=== PATIENT | female | born 1955 | race Caucasian/White ===

== ENCOUNTER 2022-03-02 09:54 | Inpatient (IN) | payer MEDICARE, SELFPAY ==
[2022-03-02] VITALS (7 sets, daily range): BP systolic 146–178; BP diastolic 75–87; PULSE 82–95; RESP 14–18; TEMP 36.4–36.7; O2SAT 95–99; BMI 27.4; BMI 28.5
--- NOTE | 2022-03-02 | ECG_ITS ---
Test Reason : palpations/ pressure in the chest Blood Pressure : / mmHG Vent. Rate : 085 BPM Atrial Rate : 000 BPM P-R Int : 000 ms QRS Dur : 086 ms QT Int : 362 ms P-R-T Axes : 000 -02 044 degrees QTc Int : 430 ms Atrial fibrillation Abnormal ECG No previous ECGs available Referred By: Ambrose Martinez Electronically Signed By:KALEN NIELSEN MD
--- NOTE | 2022-03-02 09:47 | ED.CHESTPAIN ---
HPI - Chest Pain General Chief Complaint: Chest Pain Stated Complaint: Afib Arm Numbness Time Seen by Provider: 03/02/22 09:46 Source: patient Mode of arrival: ambulatory Limitations: no limitations History of Present Illness HPI narrative: 66-year-old female who presents emergency department for evaluation of left-sided chest pain and neck pain. Patient states she woke up at 0730 hours with tightness in her left neck and left chest. She states that it was a constant , tightness that was 3/10. The pain lasted approximately 1-1/2 hours and resolved without treatment. The patient did have associated dizziness, nausea, diaphoresis and right hand tightness. She denied shortness of breath or dyspnea on exertion associated with her chest pain. This is the 1st episode of this type of chest pain. Patient states she has a history of paroxysmal atrial fibrillation, she does not take any medications and she is not certain when she goes in and out of atrial fibrillation. She states that occasionally she takes her pulse and knows that it is irregular. MD complaint: chest pain Pertinent past history: other (Paroxysmal atrial fibrillation) Onset (ago): hour(s) (1) Timing of current episode: constant (Resolved after 1-1/2 hours) Prior episodes: No Onset: during rest Pain location: left chest Pain radiation: right arm (Right hand) and neck (Left neck) Severity: mild Pain scale (0-10): 3 Quality: tightness Relieving factors: nothing Exacerbating factors: nothing Associated symptoms: nausea and diaphoresis Treatment prior to arrival: none Related Data Previous Rx's Medication Instructions Recorded doxycycline monohydrate 100 mg 100 mg PO BID 7 days #14 caps 09/09/21 capsule prednisone 10 mg tablet 10 mg PO DAILY 7 days #7 tabs 09/09/21 Allergies Allergy/AdvReac Type Severity Reaction Status Date / Time Penicillins [PENICILLINS] Allergy Unknown UNKNOWN Unverified 09/09/21 11:13 Sulfa (Sulfonamide Allergy Unknown UNKNOWN Unverified 09/09/21 11:13 Antibiotics) [SULFA (SULFONAMIDE ANTIBIOTICS)] Review of Systems Review of Systems: Yes all other systems are reviewed and are negative [facility] Past Medical History [facility] Narrative: Past medical history: Paroxysmal atrial fibrillation. She denies tobacco use. She occasionally drinks alcohol, she last drank too hard [place] drinks 2 days prior. She denies drug use. Social History Social History Advance Directives: No Physical Exam Vital Signs: Vital Signs: Last Vital Signs Temp 98.1 F 03/02/22 14:17 Pulse 92 03/02/22 14:17 Resp 14 03/02/22 14:17 BP 178/80 H 03/02/22 14:19 Pulse Ox 97 03/02/22 14:17 O2 Del Method 03/02/22 14:17 BMI result Body Mass Index 28.5 Const: General: cooperative and no acute distress Orientation/consciousness: oriented to person and oriented to place Limitations: no limitations HEENT: Head: Yes normal to inspection, Yes normocephalic and Yes atraumatic Ears: external ears normal General nose exam: Normal external nose present Face and sinus: Yes normal facial exam Mouth: Normal oral and palatal mucosa present Throat: Yes posterior oropharynx normal Eyes: General: appearance normal, both eyes and all related structures Pupils: Equal, round and reactive pupils present Neck: Neck: Yes normal visual inspection, Yes no lymphadenopathy, Yes trachea midline and Yes supple Chest: Chest palpation & inspection: normal inspection of the chest and normal palpation of entire chest wall Resp: Effort & Inspection: normal respiratory effort and able to speak in complete sentences Auscultation: clear to auscultation bilaterally Cardio: Rate: regular rate Rhythm: abnormal rhythm irregularly irregular Heart sounds: S1 normal heart sound present and S2 normal heart sound present GI: Inspection: Yes normal to inspection Palpation (GI): Soft to palpation, nontender and no guarding Auscultation: normal bowel sounds : General: Yes no CVA tenderness Back/Spine/Pelvis: Back: no CVA tenderness Skin: General skin exam: no rashes or lesions noted Neuro: General: oriented to person and oriented to place Cranial nerves: Yes CN's II-XII intact bilaterally and Yes Equal, round and reactive pupils present Cognition (Neuro): normal cognition Motor exam (neuro): 5/5 motor strength present throughout Extrem: General: Yes normal to inspection Psych: Appearance: grossly normal Speech and movement: Normal speech and movement present Affect: normal affect Attitude: cooperative Thought process: Normal thought process present Thought content: Normal thought content present Course Course Course Narrative: 58-year-old female who presents emergency department for evaluation of left-sided neck and chest tightness with associated nausea, diaphoresis, dizziness and right hand pain. Patient has a history of paroxysmal atrial fibrillation but has not had this type of chest pain in the past. The patient's pain lasted 1-1/2 hours and then resolved without treatment in the emergency department. The patient's laboratory evaluation did reveal an elevated high sensitivity troponin I at 48.8. Twelve EKG revealed atrial fibrillation with no ST segment elevation or depression. I ordered a 3 hour troponin for 12 50 hours and aspirin 324 mg orally. 1359: Patient's repeat troponin was 812 is a greater than 50% increase suggest that she has had myocardial injury, most likely type 2. I will discuss further management of this patient with the covering ui programmer, Dr. Francisco. 1437: I did discuss this patient over tiger text with our covering call a neurologist Dr. Francisco. He recommended anticoagulant the patient with heparin in starting the patient on atorvastatin. He also recommended admitting the patient for further evaluation. I will discuss admission with the covering hospitalist. Medications Administered Generic Name Dose Route Start Last Admin Trade Name Freq PRN Reason Stop Dose Admin Heparin Sodium/Sodium Chloride 25,000 unit in 250 mls @ 0 mls/hr 03/02/22 15:30 03/02/22 15:53 Heparin Sodium,Porcine/1/2ns IVCONT 12 units/kg/hr .Q0M VICTORIA 9.62 mls/hr Administration Protocol Per Protocol Discontinued Medications Generic Name Dose Route Start Last Admin Trade Name Freq PRN Reason Stop Dose Admin Aspirin 324 mg 03/02/22 11:43 03/02/22 12:11 Aspirin 81 Mg Tab.Chew PO 03/02/22 11:44 324 mg ONCE ONE Administration Atorvastatin Calcium 80 mg 03/02/22 14:32 03/02/22 15:43 Atorvastatin Calcium 80 Mg Tablet PO 03/02/22 14:33 80 mg ONCE ONE Administration Heparin Sodium (Porcine) 4,000 unit 03/02/22 15:16 03/02/22 15:40 Heparin Sodium,Porcine 5,000 Unit/Ml Vial IVPUSH 03/02/22 15:17 4,000 unit ONCE ONE Administration Medical Decision Making Medical Decision Making Differential Diagnoses: Differential diagnosis (Angina, myocardial injury-type 1 or type 2, chest wall pain, pulmonary embolism) Differential Diagnosis: The differential diagnosis associated with the patient?s presentation includes: Consideration of admission/observation: Consideration of Admission/Observation (Yes) Escalation of care admission/observation considered: Escalation of care including admission/observation considered Lab Attestation: I reviewed the patient's lab results. Independent interpretation of EKG, rhythm strip, radiology study: Independent interp EKG,rhythm strip, radiology study I performed an independent interpretation of the: EKG My interpretation: EKG at 0940: Is atrial fibrillation with a rate of 85, normal QRS and QTC interval, Q-wave in lead 3, no ST segment elevation, no ST segment depression, no significant T-wave abnormalities, no PVCs. No old EKG for comparison Chronic conditions affecting care (e.g., diabetes, HTN): Chronic conditions affecting care (e.g., diabetes, HTN) (Paroxysmal atrial fibrillation) Discharge Plan Discharge Clinical Impression: Myocardial injury, Elevated troponin Atrial fibrillation Qualifiers: Atrial fibrillation type: unspecified Qualified Code(s): I48.91 - Unspecified atrial fibrillation Patient Disposition: Admitted As Inpatient
[2022-03-02 09:58] LABS: Hemoglobin 13.9 g/dl (12.0-16.0); Mean Corpuscular HGB Conc 32.3 g/dl (31.0-35.0); Mean Corpuscular Hemoglobin 29.1 pg (27.0-33.0); Mean Corpuscular Volume 90.1 fL (80.0-98.0); Platelet Count 197 X10*3/uL (160-400); Red Blood Count 4.77 X10*6/uL (4.20-5.50); Red Cell Distribution Width 14.7 % (11.0-16.0)
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
--- OUTSIDE RECORDS SUMMARY | 2022-03-02 09:59 | XMS_ITS | Continuity of Care Document ---
:1955 Author Organization [facility] Address [address] [place] [id number]- Care Team Providers Name Role Phone Nela Mcqueen DO Primary Care Physician Encounter [facility] [place] Date(s): 10/02/19 - 10/09/19 [id number], [place] [address]- [place] Attending Physician: Rex Tracy MD Admitting Physician: Rex Tracy MD Referring Physician: Nela Mcqueen DO Allergies, Adverse Reactions, Alerts Substance Reaction Severity [...]
--- OUTSIDE RECORDS SUMMARY | 2022-03-02 09:59 | XMS_ITS | Continuity of Care Document ---
:1955 Author Organization [facility] Address [address] [place] [address]- Care Team Providers Name Role Phone Richar TAVARES Nela Primary Care Physician [place] [facility] [place] Date(s): 10/02/19 - 11/01/19 [facility] [address] [place] [address]- [facility] Allergies, Adverse Reactions, Alerts Substance Reaction Severity [...]
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
--- OUTSIDE RECORDS SUMMARY | 2022-03-02 09:59 | XMS_ITS | Continuity of Care Document ---
:1955 Author Organization [facility] Address [address] [place] [address]- Care Team Providers Name Role Phone Richar TAVARES Nela Primary Care Physician [place] [facility] [place] Date(s): 10/03/19 - 11/02/19 [facility] [address] [place] [address]- [facility] Attending Physician: Admtr, Ar8 Allergies, Adverse Reactions, Alerts Substance Reaction Severity [...]
--- OUTSIDE RECORDS SUMMARY | 2022-03-02 09:59 | XMS_ITS | Continuity of Care Document ---
:1955 Author Organization [facility] Address [address] [place] [id number]- Care Team Providers Name Role Phone Nela Mcqueen DO Primary Care Physician [place] [facility] [place]): [place] 11/01/19 [id number] [address]- [place] Attending Physician: Admbecky, Orville8 Admitting Physician: Admtr, Orville8 Referring Physician: Admtr, Ar8 Allergies, Adverse Reactions, Alerts [...]
[2022-03-02 10:06] LABS: WBC ABN SCTR FOR CBC 1
[2022-03-02 10:18] LABS: Anion Gap 13 (12-20); Carbon Dioxide 28 mmol/L (22-29); Chloride 103 mmol/L (96-108); Potassium 4.6 mmol/L (3.3-5.1); Sodium 139 mmol/L (135-145)
[2022-03-02 10:19] LABS: Band Neutrophils Percent 0 % (3-5); Eosinophils Percent Manual 1 % (0-4); Lymphocytes Percent Manual 15 % (20-40); Monocytes Percent Manual 7 % (2-11); Neutrophils Percent Manual 77 % (45-73); Platelet Estimate NORMAL (NORMAL); Platelet Morphology Comment NORMAL; RBC Morphology NORMAL
[2022-03-02 10:20] LABS: Eosinophils Absolute Manual 0.1 X10*3/uL (0.0-0.4); Lymphocytes Absolute Manual 1.5 X10*3/uL (1.2-4.9); Monocytes Absolute Manual 0.7 X10*3/uL (0.1-1.2); Neutrophils Absolute Manual 7.6 X10*3/uL (2.0-8.3); White Blood Count 9.9 X10*3/uL (4.8-10.8)
[2022-03-02 10:28] LABS: Troponin-I High Sensitivity 48.8 ng/L (<3.5-17.0)
--- NOTE | 2022-03-02 11:25 | PC.NURSE ---
Pt states having history of afib and not taking medications stating I'm no idiot, there's no correlations between strokes and afib .
--- NOTE | 2022-03-02 11:40 | PC.NURSE ---
Provider at bedside
[2022-03-02] MEDS: Aspirin 81 MG TAB.CHEW 324 MG PO (12:11)
[2022-03-02 12:46] LABS: Alanine Aminotransferase 16 U/L (0-31); Albumin Level 4.2 g/dL (3.5-5.0); Alkaline Phosphatase 80 U/L (39-117); Aspartate Amino Transferase 21 U/L (5-31); Bilirubin Direct 0.2 mg/dL (0.0-0.5); Bilirubin Total 0.6 mg/dL (0.0-1.0); Blood Urea Nitrogen 20 mg/dL (9-16); Calcium 9.4 mg/dL (8.4-10.2); Creatinine Clr Calc Pharmacy 63.4; Estimated Glomerular Filt Rate > 60; Glucose Random 110 mg/dL (60-115); Total Protein 7.1 g/dL (6.5-8.0)
[2022-03-02 13:06] LABS: Partial Thromboplastin Time 29.1 SEC (26.0-36.4)
[2022-03-02 13:27] LABS: Troponin-I High Sensitivity 812.9 ng/L (<3.5-17.0)
[2022-03-02] MEDS: Heparin Sodium,Porcine 5,000 UNIT/ML VIAL 4000 UNIT IVPUSH (15:40)
[2022-03-02] MEDS: Atorvastatin Calcium 80 MG TABLET PO ×2 (15:43→20:48)
[2022-03-02 15:52] LABS: Influenza A PCR NEGATIVE (Negative); Influenza B PCR NEGATIVE (Negative); Resp Syncy Virus RNA Qual PCR NEGATIVE (Negative); SARS COV2 PCR INHOUSE NEGATIVE (Negative)
[2022-03-02] MEDS: Heparin Sodium,Porcine/1/2NS 25,000 UNIT/250 ML IV.SOLN 9.62 UNIT IVCONT (15:53)
--- NOTE | 2022-03-02 15:59 | PC.NURSE ---
Heparin drip started per protocol
[2022-03-02 16:02] LABS: Hematocrit 43.1 % (37.0-47.0); Hemoglobin 14.5 g/dl (12.0-16.0); Mean Corpuscular HGB Conc 33.6 g/dl (31.0-35.0); Mean Corpuscular Hemoglobin 29.8 pg (27.0-33.0); Mean Corpuscular Volume 88.7 fL (80.0-98.0); Mean Platelet Volume 12.7 fL (9.4-12.3); Platelet Count 203 X10*3/uL (160-400); Red Blood Count 4.86 X10*6/uL (4.20-5.50); Red Cell Distribution Width 14.6 % (11.0-16.0); White Blood Count 9.3 X10*3/uL (4.8-10.8)
--- NOTE | 2022-03-02 16:13 | P.CONCA_ITS ---
History of Present Illness History of Present Illness Date of Service: 03/02/22 Requesting physician: Ambrose Martinez Consult reason: other (Acute coronary syndrome) Chief complaint: Afib Arm Numbness Narrative: I was consulted to see Ghada in cardiology consultation today for symptoms of upper chest discomfort into the left side of the neck associated with right arm numbness which lasted for about an hour and have this morning. Patient with prior history of atrial fibrillation, she is unclear as to persistent, appears to be persistent. She came into the hospital as she did not feel well afterwards. She continues to have mild chest discomfort across the chest. Her initial troponin was 48.8 and subsequently 2nd troponin did 112.9. EKG did not show any acute ischemic changes either ST depression or ST elevation. Patient currently does not have the pressure feeling in the left side of her neck and the numbness in her arm. She denies any palpitations or irregular heartbeat. No lightheadedness, syncope. Denies any prior coronary artery disease. She says she has had atrial fibrillation for about 7 years initially was more paroxysmal but more recently appears to be more persistent. She is not on oral anticoagulant therapy, says that never was mention for her. She does not have any history of hypertension but noted to have significantly elevated blood pressure in the emergency room. She has a blood pressure with in the systolic 110-120 range. She does not exercise regularly but is generally in good functional capacity and maintains or lifestyle. She denies any prior diabetes, heart failure, myocardial infarction. Family history positive for both her mother and father as well as 2 brothers having coronary artery disease. Review of Systems Constitutional: Constitutional: Reports no additional constitutional complaints Eyes: Eyes: Reports no additional eye complaints Cardiovascular: Cardiovascular: Reports chest pain, Denies lightheadedness, Denies Loss of Consciousness, Reports radiating jaw, neck or arm pain, Denies palpitations and Denies dyspnea Respiratory: Respiratory: Reports no additional respiratory complaints and Denies dyspnea Gastrointestinal: Gastrointestinal: Reports no additional gastrointestinal complaints Genitourinary: Genitourinary: Reports no additional female genitourinary complaints Musculoskeletal: Musculoskeletal: Reports no additional musculoskeletal complaints Integumentary/Breasts: Skin/Breast: Reports system reviewed and no additional complaints, except as docu Neurologic: Reports system reviewed and no additional complaints, except as documented Psychiatric: Psychiatric: Reports no additional psychiatric complaints Endocrine: Endocrine: Reports no additional endocrine complaints and Denies palpitations Allergic/Immunologic: Allergic/Immunologic: Reports no additional allergic/imm unologic complaints [facility] Past Medical History Medical History (Updated 03/02/22 @ 16:16 by Remy Francisco MD) Atrial fibrillation Family History Family History (Updated 03/02/22 @ 16:18 by Benito Dinh MD) Mother CHF (congestive heart failure) Social History Social History Alcohol intake: current Patient Tobacco Use Status: Former Tobacco user Use of substances other than those prescribed or required for medical reasons: No Advance Directives: No Meds Allergies Allergy/AdvReac Type Severity Reaction Status Date / Time Penicillins [PENICILLINS] Allergy Unknown UNKNOWN Unverified 09/09/21 11:13 Sulfa (Sulfonamide Allergy Unknown UNKNOWN Unverified 09/09/21 11:13 Antibiotics) [SULFA (SULFONAMIDE ANTIBIOTICS)] Active Medications: Current Medications Heparin Sodium (Porcine) (Heparin Sodium,Porcine 5,000 Unit/Ml Vial) 3,200 unit 40 unit/kg (3200 unit) IVPUSH PROTOCOL BOLUS PRN; Protocol PRN Reason: 40 unit/kg - Heparin Protocol Heparin Sodium (Porcine) (Heparin Sodium,Porcine 5,000 Unit/Ml Vial) 6,400 unit 80 unit/kg (6400 unit) IVPUSH PROTOCOL BOLUS PRN; Protocol PRN Reason: 80 unit/kg - Heparin Protocol Heparin Sodium/Sodium Chloride (Heparin Sodium,Porcine/1/2ns) 25,000 unit in 250 mls @ 0 mls/hr IVCONT .Q0M [facility]; Protocol Last Admin: 03/02/22 15:53 Dose: 12 units/kg/hr, 9.62 mls/hr Physical Exam Vital Signs: Vital Signs: Last Vital Signs Temp 98.1 F 03/02/22 14:17 Pulse 92 03/02/22 14:17 Resp 14 03/02/22 14:17 BP 178/80 H 03/02/22 14:19 Pulse Ox 97 03/02/22 14:17 O2 Del Method 03/02/22 14:17 BMI result Body Mass Index 28.5 Const: General: cooperative, comfortable, no acute distress, alert and awake Nutritional Appearance: overweight Orientation/consciousness: patient oriented x3 HEENT: Head: Yes normocephalic and Yes atraumatic Neck: Neck: Yes trachea midline, Yes supple and Yes no JVD Resp: Effort & Inspection: normal respiratory effort Auscultation: clear to auscultation bilaterally Cardio: Jugular venous distension: no JVD Rhythm: abnormal rhythm irregularly irregular Heart sounds: S1 normal heart sound present, S2 normal heart sound present, no click, no gallops, no murmurs and no rubs GI: Auscultation: normal bowel sounds Skin: General skin exam: no rashes or lesions noted Neuro: General: patient oriented x3 and no focal motor deficits Extrem: General: Yes no clubbing, cyanosis or edema Psych: Appearance: grossly normal Objective Labs and Meds Result diagrams: 03/02/22 15:35 03/02/22 09:51 Lab results: Laboratory Results - last 24 hr 03/02/22 03/02/22 03/02/22 09:51 09:51 09:51 WBC 9.9 RBC 4.77 Hgb 13.9 Hct 43.0 MCV 90.1 MCH 29.1 MCHC 32.3 RDW 14.7 Plt Count 197 MPV 12.0 Immature Gran % (Auto) Cancelled Neut % (Auto) Cancelled Lymph % (Auto) Cancelled Sanders % (Auto) Cancelled Eos % (Auto) Cancelled Baso % (Auto) Cancelled Lymph # (Auto) Cancelled Sanders # (Auto) Cancelled Eos # (Auto) Cancelled Baso # (Auto) Cancelled Abs Immat Gran (auto) Cancelled Absolute Neuts (auto) Cancelled Absolute Nucleated RBC 0.000 Nucleated RBC % (auto) 0.0 Neutrophils % (Manual) 77 H Band Neutrophils % 0 L Lymphocytes % (Manual) 15 L Monocytes % (Manual) 7 Eosinophils % (Manual) 1 Abs Neuts (Manual) 7.6 Lymphocytes # (Manual) 1.5 Monocytes # (Manual) 0.7 Eosinophils # (Manual) 0.1 Platelet Estimate NORMAL Plt Morphology Comment NORMAL RBC Morphology NORMAL APTT Sodium 139 Potassium 4.6 Chloride 103 Carbon Dioxide 28 Anion Gap 13 BUN 20 H Creatinine 0.89 Estim Creat Clear Calc 63.4 Estimated GFR > 60 Random Glucose 110 Calcium 9.4 Total Bilirubin 0.6 Direct Bilirubin 0.2 AST 21 ALT 16 Alkaline Phosphatase 80 Troponin I High Sens 48.8 H Total Protein 7.1 Albumin 4.2 03/02/22 03/02/22 03/02/22 12:51 12:51 15:35 WBC 9.3 RBC 4.86 Hgb 14.5 Hct 43.1 MCV 88.7 MCH 29.8 MCHC 33.6 RDW 14.6 Plt Count 203 MPV 12.7 H Immature Gran % (Auto) Neut % (Auto) Lymph % (Auto) Sanders % (Auto) Eos % (Auto) Baso % (Auto) Lymph # (Auto) Sanders # (Auto) Eos # (Auto) Baso # (Auto) Abs Immat Gran (auto) Absolute Neuts (auto) Absolute Nucleated RBC 0.000 Nucleated RBC % (auto) 0.0 Neutrophils % (Manual) Band Neutrophils % Lymphocytes % (Manual) Monocytes % (Manual) Eosinophils % (Manual) Abs Neuts (Manual) Lymphocytes # (Manual) Monocytes # (Manual) Eosinophils # (Manual) Platelet Estimate Plt Morphology Comment RBC Morphology APTT 29.1 Sodium Potassium Chloride Carbon Dioxide Anion Gap BUN Creatinine Estim Creat Clear Calc Estimated GFR Random Glucose Calcium Total Bilirubin Direct Bilirubin AST ALT Alkaline Phosphatase Troponin I High Sens 812.9 H* D Total Protein Albumin Assessment and Plan (1) Acute coronary syndrome: Status: Acute Patient present with symptoms and cardiac marker suggestive high risk for acute coronary syndrome. She is currently in atrial fibrillation. Currently a predominant symptoms have improved but she has mild chest discomfort across the chest which is persistently present. We discussed about management of this condition and invasive versus conservative approach per invasive approaches way superior given her age and otherwise good functionality and no other major abnormalities. She prefers to be treated conservatively at this point time. We discussed with her about higher risk of recurrent myocardial infarction, congestive heart failure as well as that. She understands and says she still wants to be treated conservatively. At this point time would start on IV h eparin. She has already been given aspirin but start on 81 mg daily. Will also treat her with dual antiplatelet therapy with Plavix loading with 300 mg and started on 75 mg daily after that. High-intensity statin therapy with target goal LDL in the long run below 70 mg/dL. Will start on metoprolol 25 mg q.6 hours given slightly elevated heart rate and elevated blood pressure. Will also given nitropaste for now. Echocardiogram to assess for LV systolic and diastolic function regional wall motion abnormality. If she remains symptom- free and has no significant hemodynamic compromise heart failure ventricular arrhythmias will pursue low level stress test prior to discharge after 72 hours of therapy. If she has no symptoms with low level stress test she will be manage conservatively and treated with medical therapy and followed as outpatient if she wishes. (2) Atrial fibrillation: Qualifiers: Atrial fibrillation type: unspecified Qualified Code(s): I48.91 - Unspecified atrial fibrillation Status: Acute Patient with persistent atrial fibrillation of unclear duration but appears to be at least for few months. Patient denies any symptoms related to it. No signs or symptoms of heart failure. Continue rate control with metoprolol as above. CHADSVASc score of 3 and in the long run should be on oral anticoagulant therapy. If she agrees would start her on Eliquis 5 mg b.i.d. and then drop her aspirin therapy. Will continue to follow with her. Procedures Date of Service Date of Service: 03/02/22
--- NOTE | 2022-03-02 16:56 | PM.IMHP ---
History of Present Illness Date of Service: 03/02/22 Chief Complaint: chest pain 66F pmh paroxysmal afib presented with chest pain. Patient reports that on day of presentation she awoke and shortly after had midsternal chest pressure radiating to her neck. Funny feeling , did not feel right . Associated with some palpitations, patient thought she might have been in rapid AFib. Pain was constant, lasted about 1-2 hours. She came to the ED. In ED EKG was nonischemic, she was in AFib with heart rates in the low 100s. Initial high sensitivity troponin was 48.8, 3 hour follow-up was 812.9. Patient was started on heparin. Review of Systems Review of Systems: Constitutional: Denies fever, denies Chills Eyes: denies blurry vision ENT: denies sore throat CVS: chest pain Respiratory: Denies dyspnea GI: no abdominal pain : denies dysuria MSK: denies neck pain Skin: denies rash Neuro: denies specific motor weakness Psych: denies suicidal ideation Endocrine: denies heat/cold intolerance Hematologic: denies easy bleeding Allergy: denies hives [facility] Medical History Atrial fibrillation Family History (Updated 03/02/22 @ 16:59 by Benito Dinh MD) Mother CHF (congestive heart failure) Brother CAD (coronary artery disease) Social History (Updated 03/02/22 @ 16:59 by Benito Dinh MD) Alcohol intake: current Alcohol intake frequency: a few times a month Patient Tobacco Use Status: Former Tobacco user Use of substances other than those prescribed or required for medical reasons: No Advance Directives: No Meds Allergies Allergy/AdvReac Type Severity Reaction Status Date / Time Penicillins [PENICILLINS] Allergy Unknown UNKNOWN Unverified 09/09/21 11:13 Sulfa (Sulfonamide Allergy Unknown UNKNOWN Unverified 09/09/21 11:13 Antibiotics) [SULFA (SULFONAMIDE ANTIBIOTICS)] Active Medications: Current Medications Atorvastatin Calcium (Atorvastatin Calcium 80 Mg Tablet) 80 mg PO BEDTIME VICTORIA Heparin Sodium (Porcine) (Heparin Sodium,Porcine 5,000 Unit/Ml Vial) 3,200 unit 40 unit/kg (3200 unit) IVPUSH PROTOCOL BOLUS PRN; Protocol PRN Reason: 40 unit/kg - Heparin Protocol Heparin Sodium (Porcine) (Heparin Sodium,Porcine 5,000 Unit/Ml Vial) 6,400 unit 80 unit/kg (6400 unit) IVPUSH PROTOCOL BOLUS PRN; Protocol PRN Reason: 80 unit/kg - Heparin Protocol Heparin Sodium/Sodium Chloride (Heparin Sodium,Porcine/1/2ns) 25,000 unit in 250 mls @ 0 mls/hr IVCONT .Q0M VICTORIA; Protocol Last Admin: 03/02/22 15:53 Dose: 12 units/kg/hr, 9.62 mls/hr Pharmacy Consult (Consult Rx Perform Med Rec) 1 each MISCELLANE ONCE PRN PRN Reason: Consult order Home Medications Medication Instructions Recorded Confirmed Last Taken Type No Known Home Meds 03/02/22 03/02/22 Unknown History Physical Exam Vital Signs and Narrative: Vital Signs: Last Vital Signs Temp 98.1 F 03/02/22 14:17 Pulse 92 03/02/22 14:17 Resp 14 03/02/22 14:17 BP 178/80 H 03/02/22 14:19 Pulse Ox 97 03/02/22 14:17 O2 Del Method 03/02/22 14:17 BMI result Body Mass Index 28.5 General: no acute distress HEENT: atraumatic Neck: normal to visual inspection CVS: S1, S2, irregular Resp: CTA bilateral Chest: non tender GI: soft, non tender, non distended : no CVA tenderness Skin: no rashes Extremities: no edema Neuro: Oriented X3, grossly intact Psych: cooperative Results Labs CBC and Chem 7: 03/02/22 15:35 03/02/22 09:51 Labs: Laboratory Results - last 24 hr 03/02/22 03/02/22 03/02/22 09:51 09:51 09:51 MCV 90.1 MCH 29.1 MCHC 32.3 RDW 14.7 Plt Count 197 MPV 12.0 Immature Gran % (Auto) Cancelled Neut % (Auto) Cancelled Lymph % (Auto) Cancelled [place] % (Auto) Cancelled Eos % (Auto) Cancelled Baso % (Auto) Cancelled Lymph # (Auto) Cancelled [place] # (Auto) Cancelled Eos # (Auto) Cancelled Baso # (Auto) Cancelled Abs Immat Gran (auto) Cancelled Absolute Neuts (auto) Cancelled Absolute Nucleated RBC 0.000 Nucleated RBC % (auto) 0.0 Neutrophils % (Manual) 77 H Band Neutrophils % 0 L Lymphocytes % (Manual) 15 L Monocytes % (Manual) 7 Eosinophils % (Manual) 1 Abs Neuts (Manual) 7.6 Lymphocytes # (Manual) 1.5 Monocytes # (Manual) 0.7 Eosinophils # (Manual) 0.1 Platelet Estimate NORMAL Plt Morphology Comment NORMAL RBC Morphology NORMAL APTT Anion Gap 13 Estim Creat Clear Calc 63.4 Estimated GFR > 60 Random Glucose 110 Calcium 9.4 Total Bilirubin 0.6 Direct Bilirubin 0.2 AST 21 ALT 16 Alkaline Phosphatase 80 Troponin I High Sens 48.8 H Total Protein 7.1 Albumin 4.2 03/02/22 03/02/22 03/02/22 12:51 12:51 15:35 MCV 88.7 MCH 29.8 MCHC 33.6 RDW 14.6 Plt Count 203 MPV 12.7 H Immature Gran % (Auto) Neut % (Auto) Lymph % (Auto) [place] % (Auto) Eos % (Auto) Baso % (Auto) Lymph # (Auto) [place] # (Auto) Eos # (Auto) Baso # (Auto) Abs Immat Gran (auto) Absolute Neuts (auto) Absolute Nucleated RBC 0.000 Nucleated RBC % (auto) 0.0 Neutrophils % (Manual) Band Neutrophils % Lymphocytes % (Manual) Monocytes % (Manual) Eosinophils % (Manual) Abs Neuts (Manual) Lymphocytes # (Manual) Monocytes # (Manual) Eosinophils # (Manual) Platelet Estimate Plt Morphology Comment RBC Morphology APTT 29.1 Anion Gap Estim Creat Clear Calc Estimated GFR Random Glucose Calcium Total Bilirubin Direct Bilirubin AST ALT Alkaline Phosphatase Troponin I High Sens 812.9 H* D Total Protein Albumin Assessment and Plan (1) Acute coronary syndrome: Status: Acute Plan 66F PMH paroxysmal afib presented with chest pain. NSTEMI iv heparin, follow up repeat trop, echo, cardio eval, statin, asa paroxysmal afib with rvr patient not interested in rate control at this time on IV heparin for AC, not on AC (low risk score) full code Patient with NSTEMI, will require at least 48 hours of IV heparin and possible cardiac catheterization, therefore, expected to require least 2 midnights inpatient. Quality Stroke Does the patient have a stroke diagnosis?: No VTE Prior VTE?: No VTE Risk Level:: Medical - moderate - high VTE Device Contraindication: Treatment Not Indicated VTE Drug Contraindication: N/A - Med Ordered
[2022-03-02 18:42] LABS: Prothrombin Time 11.2 SEC (10.0-13.1)
[2022-03-02 18:57] LABS: PTT Heparin Drip > 200.0 SEC (53-77.9)
[2022-03-02 19:01] LABS: Troponin-I High Sensitivity 1510.3 ng/L (<3.5-17.0)
--- NOTE | 2022-03-02 19:06 | PC.NURSE ---
Phone call received from lab with critical lab results: PTT/HD>200, Trop>1510.6. Provider notified, Heparin on hold per protocol-no new orders at this time.
--- NOTE | 2022-03-02 20:22 | MHC.CM.PN ---
IMM 03/02. CM met with admitted patient with bed assignment pending. Pt has a-fib c RVR and NSTEMI. Pt tells CM that she will stay at [facility], have labs and echocardiogram, but then will go home. States will not go [place] [facility] and will not have cardiac cath. Pt states she has researched the heart and how it functions. Does not believe it's function is to pump blood. Feels the vessels do that and feels that there is no need to monkey around with fixing things incorrectly . CM explained that patient is in her right mind and can make her own decisions. Requested that she at least consider what the hydroelectric plant structural engineer has to say. Pt believes she knows more, because she has researched it all. Pt in unvaccinated against Covid. 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 Has strong opinions regarding education. Pt lives alone. Uses no DME/services. Will consider HCP, but declines to complete one at this time. Pt contact is her son, Bertram Gabriel ([phone]). PCP is Dr. Myron Alfaro at [facility]. Pt did have some questions about signing out AMA. Explained to patient that would not be in her best interest, as she did have a NSTEMI and may need follow up or visiting nurse services, which CM could not arrange for her if she leaves AMA. Pt agreeable to remain in hospital. Pt on the telephone during our entire conversation with her friend Hill, who often stated his opinion and was agreeable with patients train of thought. D/C plan: home without services. Pt will arrange transportation home.
--- NOTE | 2022-03-02 20:57 | PC.NURSE ---
PTT HD 72.0, Heparin drip restarted at 20:50 pm at 8 units, kg, hr-next PTT HD scheduled at 02:50 am on 03/03/2022.
[2022-03-03 03:08] LABS: PTT Heparin Drip 59.6 SEC (53-77.9)
--- NOTE | 2022-03-03 03:38 | PC.NURSE ---
Pt six hour PPT HD was drawn and resulted. Results noted to be 59.6. Per protocol pt is within therapeutic shilo for heparin infusion. No rate change require. No bolus given. Infusion will continue 8 units/kg/hr
[2022-03-03 03:41] VITALS: PULSE 100; RESP 16; TEMP 36.7; O2SAT 97
--- NOTE | 2022-03-03 03:55 | PC.NURSE ---
Pt came to nurse's station and asked when the doctor's arrived in the morning because she would like to speak with them about changing to a different anticoagulant. Pt stated, I would like to be switched off of heparin to a different medicine that doesn't cause blood clots, like aspirin . This RN explained to the pt the reason why we use heparin and then asked what her concerns were about the heparin. Pt stated, I read an article that said 1:5000 pt's that use heparin develop blood clots and thrombocytopenia and I don't want to risk that . This RN explained to the pt that this occurrence is usually very rare but I would have the hospitalist speak with her in the morning.
[2022-03-03 06:35] VITALS: BP 144/80; PULSE 101; RESP 16; O2SAT 95
[2022-03-03 06:54] LABS: Hematocrit 42.2 % (37.0-47.0); Mean Corpuscular HGB Conc 33.2 g/dl (31.0-35.0); Mean Corpuscular Hemoglobin 29.3 pg (27.0-33.0); Mean Corpuscular Volume 88.3 fL (80.0-98.0); Mean Platelet Volume 12.2 fL (9.4-12.3); Platelet Count 196 X10*3/uL (160-400); Red Blood Count 4.78 X10*6/uL (4.20-5.50); Red Cell Distribution Width 14.5 % (11.0-16.0); White Blood Count 7.4 X10*3/uL (4.8-10.8)
--- NOTE | 2022-03-03 07:00 | CA_ITS ---
Transthoracic Echocardiogram Patient (Last, First, Middle): Ghada Gabriel M Gender: Female Date of : 1955 Age: 66 Procedure Date: 03/03/2022 Procedure Type: Transthoracic Echocardiogram Location: ER Height: 167.64 cm Weight: 79.83 kg BSA: 1.89 m2 Heart Rate: bpm BP: 144 / 80 mmHg Last Turner: SB Referring MD: Benito Dinh MD Plisse Machine Operator: Remy Francisco MD Symptoms: nstemi Study Quality: Adequate w contrast ECG Rhythm: Atrial Fibrillation Conclusions: - 1. Low normal LV systolic function with LVEF of 50-55% with small area of regional wall motion abnormality in distal LAD territory 2. Mildly dilated left atrium 3. Mild mitral regurgitation 4. Normal RV systolic pressure 5. No gross pericardial effusion Findings Procedure Information Contrast agent, definity, is being given per protocol without apparent complications. Left Ventricle Normal left ventricular cavity size. There is normal left ventricular wall thickness. The left ventricular systolic function is low normal. The visually estimated ejection fraction is between 50-55%. Diastolic function is indeterminate on the basis of available data. Wall Motion Rest Echo Findings The apex, apical inferior, and apical septum segments are hypokinetic. All other scored wall segments showed normal motion. Right Ventricle Normal right ventricular cavity size and systolic function. Atria The left atrium is mildly dilated. The right atrium is normal in size. Aortic Valve There is mild calcification of the aortic valve. There is mild thickening of the aortic valve. There is no aortic valve stenosis. There is no aortic valve regurgitation. Mitral Valve There is mild anterior and posterior mitral leaflet thickening. There is mild mitral valve regurgitation. There is no mitral valve stenosis. Pulmonic Valve The pulmonic valve was not well visualized. Tricuspid Valve Likely normal tricuspid valve structure and function. There is trace tricuspid valve regurgitation. The right ventricular systolic pressure is normal. The right ventricular systolic pressure is 27 mmHg. Normal right atrial pressure. There is no evidence of pulmonary hypertension. Great Vessels All visible segments of the aorta are normal in size. The pulmonary artery was not well visualized. Venous The inferior vena cava is normal in size and collapses greater than 50% with inspiration. Pericardium/Pleural There is no evidence of pericardial effusion. Prior Study Comparison No prior study available for comparison. Measurements 2D Linear Measurements IVSd: 0.76 0.6-0.9/0.6-1.0 cm LVIDd: 4.84 3.9-5.3/4.2-5.9 cm LVIDd Index: 2.56 2.4-3.2/2.2-3.1 cm/m2 LVIDs: 3.28 2.0-3.6 cm LVPWd: 0.74 0.7-1.1 cm LA Diam: 4.40 2.7-3.8/3.0-4.0 cm LAIDs Index: 2.33 1.5-2.3 cm/m2 LV Mass: 146.99 67-162/88-224 g LV Mass Index: 77.77 43-95/49-115 g/m2 LVOT Diam: 2.20 3.0+(-)1.3 cm 2D Systolic Function EF 4C: 42.90 >55% EF 2C: 49.10 >55% Mitral Valve MV Pk E: 0.78 E'Lateral: 10.20 E'Medial: 8.98 E/E' Med: 8.70 E/E' Lat: 7.60 Aortic Valve AoV Pk Riley: 0.89 AoV Pk Grad: 3.00 ELIESER: 3.06 LVOT LVOT Pk Riley: 0.70 LVOT Mn Riley: 0.46 LVOT VTI: 0.11 LVOT Pk Grad: 2.00 LVOT Mn Grad: 1.00 LVOT Diam: 2.20 LVOT Area: 3.80 Diastolic Function MV Pk E: 0.78 E'Medial: 8.98 E/E' Med: 8.70 E' Laterial: 10.20 E/E' Lat: 7.60 Right Ventricle TAPSE (mm): 18.70 TVS' Riley: 8.49 Tricuspid Valve TR Pk Riley: 2.45 TR Pk Grad: 24.00 RA Press: 3.00 RVSP: 27.00 Great Vessels Aorta Sinus of Valsalva: 3.20 2.0-3.5 cm Ao Asc: 3.30 2.1-3.4 cm Pulmonary Valve PV Pk Riley: 0.70 Peak PV Grad: 2.00 Updated in Other Vendor System with Status of Final Remy Francisco MD electronically signed on 03/03/2022 4:02:05 PM with status of Final
[2022-03-03 07:19] LABS: Anion Gap 12 (12-20); Blood Urea Nitrogen 13 mg/dL (9-16); Calcium 9.1 mg/dL (8.4-10.2); Carbon Dioxide 25 mmol/L (22-29); Chloride 107 mmol/L (96-108); Estimated Glomerular Filt Rate > 60; Glucose Fasting 104 mg/dL (60-99); Magnesium 2.2 mg/dL (1.6-2.6); Potassium 4.1 mmol/L (3.3-5.1); Sodium 140 mmol/L (135-145)
[2022-03-03 07:23] LABS: Troponin-I High Sensitivity 1649.5 ng/L (<3.5-17.0)
--- NOTE | 2022-03-03 07:42 | PC.NURSE ---
CRITICAL TROPONIN 1649.5. DR. ALEJANDRO AWARE, NO NEW ORDERS RECEIVED. PT ASYMPTOMATIC.
--- NOTE | 2022-03-03 09:00 | PC.NURSE ---
PT SEEN BY DR. ALEJANDRO. VERBAL ORDER GIVEN BY DR. ALEJANDRO TO STOP HEPARIN DRIP DUE TO PT REFUSING TO CONTINUE MED. PT MADE AWARE OF RISKS AND BENEFITS.
[2022-03-03] MEDS: 0.9 % Sodium Chloride Flush 3 ML SYRINGE IVFLUSH (09:15)
[2022-03-03 09:24] LABS: PTT Heparin Drip 55.5 SEC (53-77.9)
[2022-03-03] MEDS: Aspirin Enteric Coated 81 MG TABLET.DR PO (09:31)
--- NOTE | 2022-03-03 09:44 | P.PNIM_ITS ---
Subjective Subjective Date of Service: 03/03/22 Interval History: cc: chest pain interval history:improved Cardiovascular Cardiovascular: Reports no additional cardiovascular complaints Respiratory Respiratory: Reports no additional respiratory complaints Physical Exam Vital Signs: Vital Signs: Last Vital Signs Temp 98.0 F 03/03/22 03:41 Pulse 101 H 03/03/22 06:35 Resp 16 03/03/22 06:35 BP 144/80 H 03/03/22 06:35 Pulse Ox 95 03/03/22 06:35 O2 Del Method 03/03/22 06:35 BMI result Body Mass Index 28.5 General: AO X 3, no acute distress Resp: CTA bilateral, no accessory muscles used CVS: S1,S2,irregular GI: soft, non tender, non distended Neuro: motor grossly intact, alert Psych: appropriate affect, appropriate insight Objective Data Active Medications Aspirin (Aspirin Enteric Coated 81 Mg Tablet.) 81 mg PO DAILY [facility] Last Admin: 03/03/22 09:31 Dose: 81 mg Documented By: SUE Atorvastatin Calcium (Atorvastatin Calcium 80 Mg Tablet) 80 mg PO BEDTIME [facility] Last Admin: 03/02/22 20:48 Dose: 80 mg Documented By: VALERIE Clopidogrel Bisulfate (Clopidogrel Bisulfate 300 Mg Tablet) 300 mg PO ONCE ONE Stop: 03/03/22 09:25 Clopidogrel Bisulfate (Clopidogrel Bisulfate 75 Mg Tablet) 75 mg PO DAILY [facility] Metoprolol Tartrate (Metoprolol Tartrate 25 Mg Tablet) 25 mg PO QID [facility]; Protocol Pharmacy Consult (Consult Rx Perform Med Rec) 1 each MISCELLANE ONCE PRN PRN Reason: Consult order Sodium Chloride (0.9 % Sodium Chloride Flush 3 Ml Syringe) 3 ml IVFLUSH QSHIFT [facility] Last Admin: 03/03/22 09:15 Dose: 3 ml Documented By: SUE Labs CBC & Chem 7: 03/03/22 06:46 03/03/22 06:46 Labs: Laboratory Results - last 24 hr 03/02/22 03/02/22 03/02/22 09:51 09:51 09:51 MCV 90.1 MCH 29.1 MCHC 32.3 RDW 14.7 Plt Count 197 MPV 12.0 Immature Gran % (Auto) Cancelled Neut % (Auto) Cancelled Lymph % (Auto) Cancelled [place] % (Auto) Cancelled Eos % (Auto) Cancelled Baso % (Auto) Cancelled Lymph # (Auto) Cancelled [place] # (Auto) Cancelled Eos # (Auto) Cancelled Baso # (Auto) Cancelled Abs Immat Gran (auto) Cancelled Absolute Neuts (auto) Cancelled Absolute Nucleated RBC 0.000 Nucleated RBC % (auto) 0.0 Neutrophils % (Manual) 77 H Band Neutrophils % 0 L Lymphocytes % (Manual) 15 L Monocytes % (Manual) 7 Eosinophils % (Manual) 1 Abs Neuts (Manual) 7.6 Lymphocytes # (Manual) 1.5 Monocytes # (Manual) 0.7 Eosinophils # (Manual) 0.1 Platelet Estimate NORMAL Plt Morphology Comment NORMAL RBC Morphology NORMAL PT INR APTT aPTT Heparin Protocol Anion Gap 13 Estim Creat Clear Calc 63.4 Estimated GFR > 60 Random Glucose 110 Fasting Glucose Calcium 9.4 Magnesium Total Bilirubin 0.6 Direct Bilirubin 0.2 AST 21 ALT 16 Alkaline Phosphatase 80 Troponin I High Sens 48.8 H Total Protein 7.1 Albumin 4.2 Influenza Type A (PCR) Influenza Type B (PCR) RSV RNA Qual (PCR) SARS-CoV-2 RNA (RT-PCR) 03/02/22 03/02/22 03/02/22 12:51 12:51 14:55 MCV MCH MCHC RDW Plt Count MPV Immature Gran % (Auto) Neut % (Auto) Lymph % (Auto) [place] % (Auto) Eos % (Auto) Baso % (Auto) Lymph # (Auto) [place] # (Auto) Eos # (Auto) Baso # (Auto) Abs Immat Gran (auto) Absolute Neuts (auto) Absolute Nucleated RBC Nucleated RBC % (auto) Neutrophils % (Manual) Band Neutrophils % Lymphocytes % (Manual) Monocytes % (Manual) Eosinophils % (Manual) Abs Neuts (Manual) Lymphocytes # (Manual) Monocytes # (Manual) Eosinophils # (Manual) Platelet Estimate Plt Morphology Comment RBC Morphology PT INR APTT 29.1 aPTT Heparin Protocol Anion Gap Estim Creat Clear Calc Estimated GFR Random Glucose Fasting Glucose Calcium Magnesium Total Bilirubin Direct Bilirubin AST ALT Alkaline Phosphatase Troponin I High Sens 812.9 H* D Total Protein Albumin Influenza Type A (PCR) NEGATIVE Influenza Type B (PCR) NEGATIVE RSV RNA Qual (PCR) NEGATIVE SARS-CoV-2 RNA (RT-PCR) NEGATIVE 12/07/22 12/07/22 12/07/22 15:35 18:26 18:26 MCV 88.7 MCH 29.8 MCHC 33.6 RDW 14.6 Plt Count 203 MPV 12.7 H Immature Gran % (Auto) Neut % (Auto) Lymph % (Auto) [place] % (Auto) Eos % (Auto) Baso % (Auto) Lymph # (Auto) [place] # (Auto) Eos # (Auto) Baso # (Auto) Abs Immat Gran (auto) Absolute Neuts (auto) Absolute Nucleated RBC 0.000 Nucleated RBC % (auto) 0.0 Neutrophils % (Manual) Band Neutrophils % Lymphocytes % (Manual) Monocytes % (Manual) Eosinophils % (Manual) Abs Neuts (Manual) Lymphocytes # (Manual) Monocytes # (Manual) Eosinophils # (Manual) Platelet Estimate Plt Morphology Comment RBC Morphology PT 11.2 INR 1.0 APTT aPTT Heparin Protocol > 200.0 H* Anion Gap Estim Creat Clear Calc Estimated GFR Random Glucose Fasting Glucose Calcium Magnesium Total Bilirubin Direct Bilirubin AST ALT Alkaline Phosphatase Troponin I High Sens 1510.3 H* Total Protein Albumin Influenza Type A (PCR) Influenza Type B (PCR) RSV RNA Qual (PCR) SARS-CoV-2 RNA (RT-PCR) 03/02/22 03/03/22 03/03/22 20:14 02:53 06:46 MCV 88.3 MCH 29.3 MCHC 33.2 RDW 14.5 Plt Count 196 MPV 12.2 Immature Gran % (Auto) Neut % (Auto) Lymph % (Auto) [place] % (Auto) Eos % (Auto) Baso % (Auto) Lymph # (Auto) [place] # (Auto) Eos # (Auto) Baso # (Auto) Abs Immat Gran (auto) Absolute Neuts (auto) Absolute Nucleated RBC 0.000 Nucleated RBC % (auto) 0.0 Neutrophils % (Manual) Band Neutrophils % Lymphocytes % (Manual) Monocytes % (Manual) Eosinophils % (Manual) Abs Neuts (Manual) Lymphocytes # (Manual) Monocytes # (Manual) Eosinophils # (Manual) Platelet Estimate Plt Morphology Comment RBC Morphology PT INR APTT aPTT Heparin Protocol 72.0 D 59.6 Anion Gap Estim Creat Clear Calc Estimated GFR Random Glucose Fasting Glucose Calcium Magnesium Total Bilirubin Direct Bilirubin AST ALT Alkaline Phosphatase Troponin I High Sens Total Protein Albumin Influenza Type A (PCR) Influenza Type B (PCR) RSV RNA Qual (PCR) SARS-CoV-2 RNA (RT-PCR) 03/03/22 03/03/22 03/03/22 06:46 06:46 06:46 MCV MCH MCHC RDW Plt Count MPV Immature Gran % (Auto) Neut % (Auto) Lymph % (Auto) [place] % (Auto) Eos % (Auto) Baso % (Auto) Lymph # (Auto) [place] # (Auto) Eos # (Auto) Baso # (Auto) Abs Immat Gran (auto) Absolute Neuts (auto) Absolute Nucleated RBC Nucleated RBC % (auto) Neutrophils % (Manual) Band Neutrophils % Lymphocytes % (Manual) Monocytes % (Manual) Eosinophils % (Manual) Abs Neuts (Manual) Lymphocytes # (Manual) Monocytes # (Manual) Eosinophils # (Manual) Platelet Estimate Plt Morphology Comment RBC Morphology PT 11.0 INR 1.0 APTT aPTT Heparin Protocol Anion Gap 12 Estim Creat Clear Calc 71.0 Estimated GFR > 60 Random Glucose Fasting Glucose 104 H Calcium 9.1 Magnesium 2.2 Total Bilirubin Direct Bilirubin AST ALT Alkaline Phosphatase Troponin I High Sens 1649.5 H* Total Protein Albumin Influenza Type A (PCR) Influenza Type B (PCR) RSV RNA Qual (PCR) SARS-CoV-2 RNA (RT-PCR) 03/03/22 08:47 MCV MCH MCHC RDW Plt Count MPV Immature Gran % (Auto) Neut % (Auto) Lymph % (Auto) [place] % (Auto) Eos % (Auto) Baso % (Auto) Lymph # (Auto) [place] # (Auto) Eos # (Auto) Baso # (Auto) Abs Immat Gran (auto) Absolute Neuts (auto) Absolute Nucleated RBC Nucleated RBC % (auto) Neutrophils % (Manual) Band Neutrophils % Lymphocytes % (Manual) Monocytes % (Manual) Eosinophils % (Manual) Abs Neuts (Manual) Lymphocytes # (Manual) Monocytes # (Manual) Eosinophils # (Manual) Platelet Estimate Plt Morphology Comment RBC Morphology PT INR APTT aPTT Heparin Protocol 55.5 Anion Gap Estim Creat Clear Calc Estimated GFR Random Glucose Fasting Glucose Calcium Magnesium Total Bilirubin Direct Bilirubin AST ALT Alkaline Phosphatase Troponin I High Sens Total Protein Albumin Influenza Type A (PCR) Influenza Type B (PCR) RSV RNA Qual (PCR) SARS-CoV-2 RNA (RT-PCR) Assessment and Plan (1) Acute coronary syndrome: Status: Acute Plan 66F PMH paroxysmal afib presented with chest pain. NSTEMI troponin peak at about 1600 continue asa, statin patient declines iv heparin, beta lupe, plavix follow up echo paroxysmal afib with rvr patient not interested in rate control at this time declines AC full code reason for continued hospitalization:awaiting echo Quality Stroke Does the patient have a stroke diagnosis?: No VTE Prior VTE?: No VTE Risk Level:: Medical - moderate - high VTE Device Contraindication: Treatment Not Indicated VTE Drug Contraindication: N/A - Med Ordered
--- NOTE | 2022-03-03 10:39 | P.PNCA_ITS ---
Subjective Subjective Date of Service: 03/03/22 Principal diagnosis: Acute coronary syndrome Interval history: Patient currently not having any chest pain. Atrial fibrillation rapid heart rate noted. The palpitations. Blood pressure is slightly elevated. None of the recommendations of pursued yesterday. She was started this morning on Plavix 300 mg loading dose. Metoprolol was added to her regimen. Preliminary echo report shows distal LAD territory wall motion abnormality. Review of Systems Constitutional: Reports no additional constitutional complaints Physical Exam Vital Signs: Last Vital Signs Temp 98.0 F 03/03/22 03:41 Pulse 101 H 03/03/22 06:35 Resp 16 03/03/22 06:35 BP 144/80 H 03/03/22 06:35 Pulse Ox 95 03/03/22 06:35 O2 Del Method 03/03/22 06:35 BMI result Body Mass Index 28.5 Const General: cooperative, comfortable, no acute distress, alert and awake Nutritional Appearance: overweight Orientation/consciousness: patient oriented x3 Neck Neck: Yes trachea midline, Yes supple and Yes no JVD Resp Effort & Inspection: normal respiratory effort Auscultation: clear to auscultation bilaterally Cardio Rate: tachycardic Rhythm: abnormal rhythm irregularly irregular Heart sounds: S1 normal heart sound present, S2 normal heart sound present, no click, no gallops, no murmurs and no rubs GI Auscultation: normal bowel sounds Skin General skin exam: no rashes or lesions noted Neuro General: patient oriented x3 and no focal motor deficits Extrem General: Yes no clubbing, cyanosis or edema Objective Labs and Meds Result diagrams: 03/03/22 06:46 03/03/22 06:46 Lab results: Laboratory Results - last 24 hr 03/02/22 03/02/22 03/02/22 09:51 12:51 12:51 WBC RBC Hgb Hct MCV MCH MCHC RDW Plt Count MPV Absolute Nucleated RBC Nucleated RBC % (auto) PT INR APTT 29.1 aPTT Heparin Protocol Sodium 139 Potassium 4.6 Chloride 103 Carbon Dioxide 28 Anion Gap 13 BUN 20 H Creatinine 0.89 Estim Creat Clear Calc 63.4 Estimated GFR > 60 Random Glucose 110 Fasting Glucose Calcium 9.4 Magnesium Total Bilirubin 0.6 Direct Bilirubin 0.2 AST 21 ALT 16 Alkaline Phosphatase 80 Troponin I High Sens 812.9 H* D Total Protein 7.1 Albumin 4.2 Influenza Type A (PCR) Influenza Type B (PCR) RSV RNA Qual (PCR) SARS-CoV-2 RNA (RT-PCR) 03/02/22 03/02/22 03/02/22 14:55 15:35 18:26 WBC 9.3 RBC 4.86 Hgb 14.5 Hct 43.1 MCV 88.7 MCH 29.8 MCHC 33.6 RDW 14.6 Plt Count 203 MPV 12.7 H Absolute Nucleated RBC 0.000 Nucleated RBC % (auto) 0.0 PT 11.2 INR 1.0 APTT aPTT Heparin Protocol > 200.0 H* Sodium Potassium Chloride Carbon Dioxide Anion Gap BUN Creatinine Estim Creat Clear Calc Estimated GFR Random Glucose Fasting Glucose Calcium Magnesium Total Bilirubin Direct Bilirubin AST ALT Alkaline Phosphatase Troponin I High Sens Total Protein Albumin Influenza Type A (PCR) NEGATIVE Influenza Type B (PCR) NEGATIVE RSV RNA Qual (PCR) NEGATIVE SARS-CoV-2 RNA (RT-PCR) NEGATIVE 03/02/22 03/02/22 03/03/22 18:26 20:14 02:53 WBC RBC Hgb Hct MCV MCH MCHC RDW Plt Count MPV Absolute Nucleated RBC Nucleated RBC % (auto) PT INR APTT aPTT Heparin Protocol 72.0 D 59.6 Sodium Potassium Chloride Carbon Dioxide Anion Gap BUN Creatinine Estim Creat Clear Calc Estimated GFR Random Glucose Fasting Glucose Calcium Magnesium Total Bilirubin Direct Bilirubin AST ALT Alkaline Phosphatase Troponin I High Sens 1510.3 H* Total Protein Albumin Influenza Type A (PCR) Influenza Type B (PCR) RSV RNA Qual (PCR) SARS-CoV-2 RNA (RT-PCR) 03/03/22 03/03/22 03/03/22 06:46 06:46 06:46 WBC 7.4 RBC 4.78 Hgb 14.0 Hct 42.2 MCV 88.3 MCH 29.3 MCHC 33.2 RDW 14.5 Plt Count 196 MPV 12.2 Absolute Nucleated RBC 0.000 Nucleated RBC % (auto) 0.0 PT 11.0 INR 1.0 APTT aPTT Heparin Protocol Sodium 140 Potassium 4.1 Chloride 107 Carbon Dioxide 25 Anion Gap 12 BUN 13 Creatinine 0.81 Estim Creat Clear Calc 71.0 Estimated GFR > 60 Random Glucose Fasting Glucose 104 H Calcium 9.1 Magnesium 2.2 Total Bilirubin Direct Bilirubin AST ALT Alkaline Phosphatase Troponin I High Sens Total Protein Albumin Influenza Type A (PCR) Influenza Type B (PCR) RSV RNA Qual (PCR) SARS-CoV-2 RNA (RT-PCR) 03/03/22 03/03/22 06:46 08:47 WBC RBC Hgb Hct MCV MCH MCHC RDW Plt Count MPV Absolute Nucleated RBC Nucleated RBC % (auto) PT INR APTT aPTT Heparin Protocol 55.5 Sodium Potassium Chloride Carbon Dioxide Anion Gap BUN Creatinine Estim Creat Clear Calc Estimated GFR Random Glucose Fasting Glucose Calcium Magnesium Total Bilirubin Direct Bilirubin AST ALT Alkaline Phosphatase Troponin I High Sens 1649.5 H* Total Protein Albumin Influenza Type A (PCR) Influenza Type B (PCR) RSV RNA Qual (PCR) SARS-CoV-2 RNA (RT-PCR) Progress Note: A&P Assessment and plan (1) Acute coronary syndrome: Status: Acute Assessment and Plan: Acute coronary syndrome with LAD territory regional wall motion abnormality. This is suggestive high risk acute coronary syndrome. Troponins are still rising. I have been told the patient is refusing treatment. Importance of p ursuing treatment regimen was discussed with her. Risk of as well as recurrent myocardial infarction is high. She needs cardiac catheterization. She says she wants to further research. She wants to for now pursue medical therapy. She should be on dual antiplatelet therapy for now as well as metoprolol 25 mg q.6 hours. This is to improve heart rate and reduce myocardial demand. IV heparin for 72 hours. Also should be on statin therapy. At this point time given regional wall motion abnormality high risk for complications would not perform post LA walk on discharge. Patient really needs cardiac catheterization. Differential diagnosis include acute coronary syndrome related plaque rupture/erosion, spontaneous coronary artery dissection and also possibility of stress-induced cardiomyopathy. (2) Atrial fibrillation: Status: Acute Assessment and Plan: Atrial fibrillation with in adequate rate control. Start metoprolol for rate control. If patient elects not to undergo cardiac catheterization would switch her to oral anticoagulation therapy with Eliquis 5 mg b.i.d. given high risk for stroke and Plavix 75 mg daily and hold off on aspirin therapy. Will continue to follow with 2 although it is unclear whether it is beneficial for me to follow-up with patient as she is refusing all kind of care at this point in time. Time Spent With Patient Time: Total time spent is greater than 50% in coordination of care (as documented) at patient's floor/unit and/or counseling patient: Progress Note: Quality Stroke Does the patient have a stroke diagnosis?: No Procedures Date of Service Date of Service: 03/03/22
--- NOTE | 2022-03-03 11:19 | PM.DS ---
DS: Providers Provider Date of Service: 03/03/22 Date of admission: 03/02/22 16:55 Primary care physician: Karen Alfaro NARCOTICS DETECTIVE- Consults: 03/02/22 16:03 Consult to Cardiology Stat Consulting Provider: Remy Francisco Reason for consultation: Chest pain, elevated troponin Has provider been notified: Yes 03/02/22 16:53 Consult to Cardiology Routine Consulting Provider: Remy Francisco Reason for consultation: nstemi DS: Diagnosis Discharge Diagnosis (1) Acute coronary syndrome: Status: Acute (2) Atrial fibrillation: Status: Acute DS: Summary Hospital Course Hospital Course: from initial hpi: Chief Complaint: chest pain 66F pmh paroxysmal afib presented with chest pain.? Patient reports that on day of presentation she awoke and shortly after had midsternal chest pressure radiating to her neck. Funny feeling , did not feel right .? Associated with some palpitations, patient thought she might have been in rapid AFib.? Pain was constant, lasted about 1-2 hours.? She came to the ED. In ED EKG was nonischemic, she was in AFib with heart rates in the low 100s.? Initial high sensitivity troponin was 48.8, 3 hour follow-up was 812.9.? Patient was started on heparin. hospital course: Patient was admitted for non ST elevation myocardial infarction. She was started on IV heparin, aspirin, statin. Beta-blockers and Plavix were also recommended however patient declined therapy at that time. Echocardiogram did show regional wall motion abnormality. Urgent reperfusion was recommended. Risks of not pursuing including cardiac were explained to the patient however, she declined treatment and decided to leave against medical advice. For paroxysmal atrial fibrillation she is now agreeable for rate control with metoprolol, anticoagulation is recommended to reduce risk of stroke, however, patient is not interested in taking. Time Spent with Patient Time attestation: Total time spent providing and/or coordinating discharge services: Discharge coordination time: Greater than 30 minutes Quality: Safe Use of Opioids Does Pt have an Active Cancer Diagnosis on the Problem List?: No Quality: Stroke Does the patient have a stroke diagnosis?: No Physical Exam Vital Signs: Vital Signs: Last Vital Signs Temp 98.0 F 03/03/22 03:41 Pulse 101 H 03/03/22 06:35 Resp 16 03/03/22 06:35 BP 144/80 H 03/03/22 06:35 Pulse Ox 95 03/03/22 06:35 O2 Del Method 03/03/22 06:35 BMI result Body Mass Index 28.5 General: AO X 3, no acute distress Resp: CTA bilateral, no accessory muscles used CVS: S1,S2,irregular GI: soft, non tender, non distended Neuro: motor grossly intact, alert Psych: appropriate affect, appropriate insight DS: Data Data Completed and Pending Labs on day of discharge: Laboratory Results - last 24 hr 03/02/22 03/02/22 03/02/22 09:51 12:51 12:51 WBC RBC Hgb Hct MCV MCH MCHC RDW Plt Count MPV Absolute Nucleated RBC Nucleated RBC % (auto) PT INR APTT 29.1 aPTT Heparin Protocol Sodium 139 Potassium 4.6 Chloride 103 Carbon Dioxide 28 Anion Gap 13 BUN 20 H Creatinine 0.89 Estim Creat Clear Calc 63.4 Estimated GFR > 60 Random Glucose 110 Fasting Glucose Calcium 9.4 Magnesium Total Bilirubin 0.6 Direct Bilirubin 0.2 AST 21 ALT 16 Alkaline Phosphatase 80 Troponin I High Sens 812.9 H* D Total Protein 7.1 Albumin 4.2 Influenza Type A (PCR) Influenza Type B (PCR) RSV RNA Qual (PCR) SARS-CoV-2 RNA (RT-PCR) 03/02/22 03/02/22 03/02/22 14:55 15:35 18:26 WBC 9.3 RBC 4.86 Hgb 14.5 Hct 43.1 MCV 88.7 MCH 29.8 MCHC 33.6 RDW 14.6 Plt Count 203 MPV 12.7 H Absolute Nucleated RBC 0.000 Nucleated RBC % (auto) 0.0 PT 11.2 INR 1.0 APTT aPTT Heparin Protocol > 200.0 H* Sodium Potassium Chloride Carbon Dioxide Anion Gap BUN Creatinine Estim Creat Clear Calc Estimated GFR Random Glucose Fasting Glucose Calcium Magnesium Total Bilirubin Direct Bilirubin AST ALT Alkaline Phosphatase Troponin I High Sens Total Protein Albumin Influenza Type A (PCR) NEGATIVE Influenza Type B (PCR) NEGATIVE RSV RNA Qual (PCR) NEGATIVE SARS-CoV-2 RNA (RT-PCR) NEGATIVE 03/02/22 03/02/22 03/03/22 18:26 20:14 02:53 WBC RBC Hgb Hct MCV MCH MCHC RDW Plt Count MPV Absolute Nucleated RBC Nucleated RBC % (auto) PT INR APTT aPTT Heparin Protocol 72.0 D 59.6 Sodium Potassium Chloride Carbon Dioxide Anion Gap BUN Creatinine Estim Creat Clear Calc Estimated GFR Random Glucose Fasting Glucose Calcium Magnesium Total Bilirubin Direct Bilirubin AST ALT Alkaline Phosphatase Troponin I High Sens 1510.3 H* Total Protein Albumin Influenza Type A (PCR) Influenza Type B (PCR) RSV RNA Qual (PCR) SARS-CoV-2 RNA (RT-PCR) 03/03/22 03/03/22 03/03/22 06:46 06:46 06:46 WBC 7.4 RBC 4.78 Hgb 14.0 Hct 42.2 MCV 88.3 MCH 29.3 MCHC 33.2 RDW 14.5 Plt Count 196 MPV 12.2 Absolute Nucleated RBC 0.000 Nucleated RBC % (auto) 0.0 PT 11.0 INR 1.0 APTT aPTT Heparin Protocol Sodium 140 Potassium 4.1 Chloride 107 Carbon Dioxide 25 Anion Gap 12 BUN 13 Creatinine 0.81 Estim Creat Clear Calc 71.0 Estimated GFR > 60 Random Glucose Fasting Glucose 104 H Calcium 9.1 Magnesium 2.2 Total Bilirubin Direct Bilirubin AST ALT Alkaline Phosphatase Troponin I High Sens Total Protein Albumin Influenza Type A (PCR) Influenza Type B (PCR) RSV RNA Qual (PCR) SARS-CoV-2 RNA (RT-PCR) 03/03/22 03/03/22 06:46 08:47 WBC RBC Hgb Hct MCV MCH MCHC RDW Plt Count MPV Absolute Nucleated RBC Nucleated RBC % (auto) PT INR APTT aPTT Heparin Protocol 55.5 Sodium Potassium Chloride Carbon Dioxide Anion Gap BUN Creatinine Estim Creat Clear Calc Estimated GFR Random Glucose Fasting Glucose Calcium Magnesium Total Bilirubin Direct Bilirubin AST ALT Alkaline Phosphatase Troponin I High Sens 1649.5 H* Total Protein Albumin Influenza Type A (PCR) Influenza Type B (PCR) RSV RNA Qual (PCR) SARS-CoV-2 RNA (RT-PCR) Discharge Plan Discharge Anticipated Discharge Date/Time: 03/03/22 11:09 Patient Disposition: Left Against Medical Advice Discharge Diagnosis: nstemi Referrals: Karen Alfaro, NARCOTICS DETECTIVE- [Primary Care Provider] - 1 Week Discharge Medications: New atorvastatin 80 mg Tablet 80 mg PO BEDTIME Qty: 30 0RF aspirin 81 mg Tablet,Delayed Release (Dr/Ec) 81 mg PO DAILY Qty: 30 0RF metoprolol tartrate 25 mg Tablet 25 mg PO BID Qty: 60 0RF Protocol: Hold for SBP/HR < HOLD for SBP < : 90 HOLD for HR < : 60 Discharge Orders: Discharge Order (Routine); Ordered 03/03/22 Ordered By: Benito Dinh Diet: Advance to usual diet Activity on Discharge: As tolerated Care Plan Goals: manage coronary disease Health Concerns: NSTEMI Plan of Treatment: standard of care is urgent reperfusion Assessment: see above
--- NOTE | 2022-03-03 11:24 | MHC.CM.PN ---
Patient left AMA.
[2022-03-03 11:31] VITALS: BP 159/84; PULSE 98; RESP 18; TEMP 36.7; O2SAT 98
--- NOTE | 2022-03-03 12:40 | PC.NURSE ---
PT SEEN BY DR. MILES AND DR. ALEJANDRO. PT REQUESTED TO [facility]. RISKS EXPLAINED TO PT WITH HER DAUGHTER AT HER BEDSIDE, SHE VOICED UNDERSTANDING OF RISKS. NO CHANGE IN HER MEDICAL DECISION. both AMA form and discharge instructions reviewed and signed by pt. no c/o cp, sob/pham. vss. PT LEFT WITH HER DAUGHTER.
== END 2022-03-03 11:45 | disposition left against medical advice (07) | DRG 282 ==
LOC: HO.ED 14:38 → HO.EDOVER 17:02
PROVIDERS: Student in an Organized Health Care Education/Training Program; Admitting Provider Internal Medicine; Emergency Provider Emergency Medicine Emergency Medical Services; PCP Nurse Practitioner Family; Visit Provider Internal Medicine
DX: I48.0 Paroxysmal atrial fibrillation (principal); I21.4 Non-ST elevation (NSTEMI) myocardial infarction; Z88.0 Allergy status to penicillin; Z88.2 Allergy status to sulfonamides; Z87.891 Personal history of nicotine dependence; Z20.822 Contact with and (suspected) exposure to COVID-19
CPT/HCPCS: 0241U; 36415; 80048; 80051; 80076; 83735; 84484; 85007; 85025; 85027; 85610; 85730; 93005; 93306; 99285; Q9957

== ENCOUNTER 2023-12-05 15:42 | Outpatient (AMB) | payer MEDICARE, SELFPAY ==
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
[2023-12-05 15:57] VITALS: BP 104/70; PULSE 111; TEMP 36.9; O2SAT 96; BMI 27.0
[2023-12-05 16:20] VITALS: PULSE 86
== END 2023-12-05 16:31 | disposition home or self-care (01) ==
PROVIDERS: PCP Nurse Practitioner Family; Visit Provider Physician Assistant
DX: M54.6 Pain in thoracic spine (principal); V89.2XXA Person injured in unspecified motor-vehicle accident, traffic, initial encounter; M62.838 Other muscle spasm
CPT/HCPCS: 99204

== ENCOUNTER 2023-12-16 13:38 | Outpatient (REF) | payer MEDICARE, SELFPAY ==
[2023-12-16 15:18] LABS: MANUAL DIFF FLAG NO
[2023-12-16 15:20] LABS: Basophils Percent Auto 0.5 % (0-2); Eosinophils Absolute Auto 0.3 X10*3/uL (0.0-0.4); Eosinophils Percent Auto 3.5 % (0-4); Hematocrit 40.2 % (37.0-47.0); Hemoglobin 13.3 g/dl (12.0-16.0); Imm Gran Abs Auto 0.03 X10*3/uL (0.00-0.03); Imm Gran Pct Auto 0.4 % (0.0-0.4); Lymphocytes Absolute Auto 2.6 X10*3/uL (1.2-4.9); Lymphocytes Percent Auto 29.8 % (20-40); Mean Corpuscular HGB Conc 33.1 g/dl (31.0-35.0); Mean Corpuscular Hemoglobin 29.2 pg (27.0-33.0); Mean Corpuscular Volume 88.2 fL (80.0-98.0); Mean Platelet Volume 12.1 fL (9.4-12.3); Monocytes Absolute Auto 0.6 X10*3/uL (0.1-1.2); Monocytes Percent Auto 7.2 % (2-11); Neutrophils Percent Auto 58.6 % (45-73); Platelet Count 268 X10*3/uL (160-400); Red Blood Count 4.56 X10*6/uL (4.20-5.50); Red Cell Distribution Width 13.9 % (11.0-16.0); White Blood Count 8.6 X10*3/uL (4.8-10.8)
[2023-12-16 15:26] LABS: Estimated Average Glucose 114 mg/dL; Hemoglobin A1c % 5.6 % (<6.0)
[2023-12-16 15:43] LABS: Alanine Aminotransferase 13 U/L (0-31); Albumin Level 3.9 g/dL (3.5-5.0); Alkaline Phosphatase 106 U/L (39-117); Anion Gap 14 (12-20); Aspartate Amino Transferase 19 U/L (5-31); Bilirubin Total 0.5 mg/dL (0.0-1.0); Blood Urea Nitrogen 15 mg/dL (9-16); Calcium 9.7 mg/dL (8.4-10.2); Carbon Dioxide 26 mmol/L (22-29); Chloride 104 mmol/L (96-108); Estimated Glomerular Filt Rate 52; Glucose Random 140 mg/dL (60-115); Potassium 3.6 mmol/L (3.3-5.1); Sodium 140 mmol/L (135-145); Total Protein 7.8 g/dL (6.5-8.0)
[2023-12-16 15:57] LABS: Thyroid Stimulating Hormone 1.07 uIU/mL (0.32-4.0)
[2023-12-18 18:44] LABS: Triiodothyronine T3 Free 3.2 pg/mL (2.3-4.2)
== END 2023-12-16 13:39 | disposition home or self-care (01) ==
LOC: HO.HMGCLDS 13:38
PROVIDERS: PCP Internal Medicine; Visit Provider Internal Medicine
DX: I48.11 Longstanding persistent atrial fibrillation (principal); R71.8 Other abnormality of red blood cells; R94.5 Abnormal results of liver function studies; R73.03 Prediabetes; E07.9 Disorder of thyroid, unspecified
CPT/HCPCS: 36415; 80053; 83036; 84443; 84481; 85025

== ENCOUNTER 2024-02-28 15:39 | Outpatient (AMB) | payer MEDICARE, SELFPAY ==
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
[2024-02-28 15:43] VITALS: BP 118/74; PULSE 78; O2SAT 97
== END 2024-02-28 16:27 | disposition home or self-care (01) ==
PROVIDERS: PCP Internal Medicine; Visit Provider Registered Nurse
DX: H53.19 Other subjective visual disturbances (principal); R20.0 Anesthesia of skin

== ENCOUNTER → 2024-02-28 15:39 | Outpatient (BNVA) | payer MEDICARE, SELFPAY | PROVIDERS: PCP Internal Medicine; Visit Provider Registered Nurse | DX: R20.0 Anesthesia of skin (principal); H53.19 Other subjective visual disturbances | CPT/HCPCS: 99212 ==

== ENCOUNTER 2024-06-13 13:40 | Outpatient (AMB) | payer MEDICARE, SELFPAY ==
[2024-06-13 13:44] VITALS: BP 120/78; PULSE 96; BMI 26.3
--- NOTE | 2024-06-13 13:44 | A.OFFVIS_ITS ---
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 She is currently not on any medications. About 2 and half he was ago she was admitted here with symptoms suggestive of myocardial infarction with elevated troponin and at that time had an echocardiogram which showed distal LAD territory abnormality could have been takotsubo syndrome. She was also noted to be in atrial fibrillation at that time. She was recommended cardiac catheterization she had declined and signed against medical advice. She comes for follow-up to discuss further treatment options but does not want to be on any medications as she thinks that this may cause to have different kind of NSAIDs of problem. Over the last 6 months she has been noticing increasing symptoms of exertional shortness of breath which has drawn her attention. She has not had any clear orthopnea, PND, leg edema. She does say that she snores and sleeps poorly and has daytime somnolence. She was wondering whether she has underlying sleep apnea. She denies any prolonged palpitation irregular heartbeat. Currently as mentioned she is not on any medications. [facility] Medical History Atrial fibrillation Surgical History Hx of knee surgery Family History Mother CHF (congestive heart failure) Brother CAD (coronary artery disease) Social History Alcohol intake: current Alcohol intake frequency: a few times a month Patient Tobacco Use Status: Former Tobacco user service: No Current occupational status: retired Review of Systems Const Denies chills, Denies daytime sleepiness, Denies fatigue, Denies fever(s), Denies frequent falls, Denies poor appetite, Denies snoring, Denies stops breathing during sleep, Denies weakness, Denies weight gain and Denies weight loss Eyes Denies loss of vision ENT Denies dizziness and Denies hearing loss Card Reports chest pain, Denies claudication, Denies leg edema, Denies lightheadedness, Reports palpitations, Reports dyspnea, Denies dyspnea on exertion and Denies orthopnea Resp Denies cough, Denies excessive phlegm production, Reports dyspnea, Denies dyspnea on exertion, Denies snoring and Denies wheezing GI Denies abdominal pain, Denies hematochezia, Denies change in bowel habits, Denies nausea and Denies vomiting Denies urinary frequency and Denies dysuria Musc Denies arthralgias, Denies muscle weakness, Denies numbness and Denies other (frequent falls) Skin/Breast Denies nail changes and Denies rash Neuro Denies Abnormal speech present, Denies dizziness, Denies frequent falls, Denies loss of vision, Denies memory loss, Denies numbness and Denies weakness Psych Denies depression and Denies memory loss Endo Denies fatigue and Reports palpitations Paul/Lymph Reports easy bruising and Reports other (anemia) Aller/Immun Denies wheezing Physical Exam Vital Signs: Last Vital Signs Pulse 96 06/13/24 13:44 BP 120/78 06/13/24 13:44 BMI result Body Mass Index 26.3 Const General: cooperative, comfortable, no acute distress, alert and awake Nutritional Appearance: average body habitus Orientation/consciousness: patient oriented x3 Limitations: no limitations HEENT Head: Yes normocephalic and Yes atraumatic Neck Neck: Yes trachea midline, Yes supple and Yes no JVD Resp Effort & Inspection: normal respiratory effort Auscultation: clear to auscultation bilaterally Cardio Jugular venous distension: no JVD Rhythm: abnormal rhythm irregularly irregular Heart sounds: S1 normal heart sound present, S2 normal heart sound present, no click, no gallops, no murmurs and no rubs GI Auscultation: normal bowel sounds Skin General skin exam: no rashes or lesions noted Neuro General: patient oriented x3 and no focal motor deficits Speech: No Abnormal speech present Extrem General: Yes no clubbing, cyanosis or edema Psych Appearance: grossly normal Office Procedures EKG Details: EKG shows atrial fibrillation with poor R-wave progression most likely lead placement with no significant ST T wave changes 14421-[id number], Complete Assessment & Plan Assessment & Plan (1) Atrial fibrillation: Code(s): I48.91 - Unspecified atrial fibrillation Category: Medical Qualifiers: Atrial fibrillation type: unspecified Qualified Code(s): I48.91 - Unspecified atrial fibrillation Plan: Patient presents with atrial fibrillation which now appears to be chronic persistent. She was no classic symptoms but has now developing symptoms exertional shortness of breath which are concerning for development of incident. Congestive heart failure. She was no overt signs of congestive heart failure at this point time. Will suggest some baseline blood work including BNP to assess for the same. Also suggest chest x-ray. Also suggest an echocardiogram to evaluate LV systolic and diastolic function is possible that she has developed tachycardia mediated cardiomyopathy and also to assess for biatrial chamber size to see if it will be when feasible to pursue rhythm control approach. However she is still very adamant about not going on any medications. We discussed the rationale for medical therapy. She was wondering why she was to be on oral anticoagulation therapy. I discussed about risk of stroke and oral anticoagulant therapy to be 1 of the mainstays of treatment to reduce risk of stroke. This will also be necessary if he had pursuing rhythm control approach around the time of pursuing synchronized cardioversion. She is currently not willing to participate in any oral anticoagulant therapy or any other medications for that matter. She may have a higher likelihood of obstructive sleep apnea will suggest a home sleep study. Discussed with her that longer she is in atrial fibrillation as well he has been more difficult to pursue rhythm control approach and long-term complications of atrial fibrillation being development of congestive heart failure which she was mild symptoms of. Will follow up in the clinic after 6 weeks to 2 months. Orders: Orders CA echo transthoracic complete 06/13/24 I48.91 - Unspecified atrial fibrillation B Type Natriuretic Peptide 06/13/24 I48.91 - Unspecified atrial fibrillation Basic Metabolic Panel 06/13/24 I48.91 - Unspecified atrial fibrillation Magnesium 06/13/24 I48.91 - Unspecified atrial fibrillation XR chest 2V 06/13/24 I48.91 - Unspecified atrial fibrillation RT home sleep study 06/13/24 I48.91 - Unspecified atrial fibrillation, R40.0 - Somnolence Coding Level of Care Code New Pt Level 4 (52793) Complex EM visit Add On G2211 Diagnoses Atrial fibrillation I48.91 Atrial fibrillation type: unspecified CPT Codes EKG - CPT: 70699-Ofxjcnhyvxnrusnmp, Complete ([id number])
== END 2024-06-13 14:12 | disposition home or self-care (01) ==
LOC: HO.HCS 13:41
PROVIDERS: PCP Internal Medicine; Visit Provider Internal Medicine Cardiovascular Disease
DX: I48.91 Unspecified atrial fibrillation (principal)
CPT/HCPCS: 93010; 99214; G2211

== ENCOUNTER 2024-06-13 13:40 | Outpatient (REF) | payer MEDICARE, SELFPAY ==
--- NOTE | ~2024-06-13 | XR_ITS ---
CLINICAL HISTORY: I48.91 - Unspecified atrial fibrillation 2 view chest x-ray Comparison: None Findings: No consolidation or effusion. Heart size is normal. No acute fracture. IMPRESSION: 1. No acute findings. This document has been electronically signed by: Wojciech Handy MD on 06/15/2024 08:11:24
[2024-06-13 15:49] LABS: Anion Gap 13 (12-20); Blood Urea Nitrogen 12 mg/dL (9-16); Calcium 9.3 mg/dL (8.4-10.2); Carbon Dioxide 27 mmol/L (22-29); Chloride 103 mmol/L (96-108); Estimated Glomerular Filt Rate > 60; Glucose Random 97 mg/dL (60-115); Magnesium 1.9 mg/dL (1.6-2.6); Potassium 4.1 mmol/L (3.3-5.1); Sodium 139 mmol/L (135-145)
[2024-06-13 15:54] LABS: B Type Natriuretic Peptide 187 pg/mL (<100)
== END 2024-06-13 13:41 | disposition home or self-care (01) ==
LOC: HO.XRAY 13:40
PROVIDERS: PCP Internal Medicine; Visit Provider Internal Medicine Cardiovascular Disease
DX: I48.91 Unspecified atrial fibrillation (principal); R40.0 Somnolence
CPT/HCPCS: 36415; 71046; 80048; 83735; 83880; 93005; 99212

== ENCOUNTER → 2024-06-13 14:36 | Outpatient (BNV) | payer MEDICARE, SELFPAY | PROVIDERS: PCP Internal Medicine; Visit Provider Specialist | DX: I48.91 Unspecified atrial fibrillation (principal) | CPT/HCPCS: 71046 ==

== ENCOUNTER → 2024-07-09 14:10 | Outpatient (REF) | payer MEDICARE, SELFPAY ==
--- NOTE | 2024-07-09 14:14 | CA_ITS ---
Transthoracic Echocardiogram Patient (Last, First, Middle): Valery Gabriel M Gender: Female Date of : 1955 Age: 69 Procedure Date: 07/09/2024 Procedure Type: Transthoracic Echocardiogram Location: OP Height: 167.64 cm Weight: 77.11 kg BSA: 1.87 m2 Heart Rate: bpm BP: 100 / 60 mmHg Tea [employer]ice Supervisor: TO Referring MD: Remy Francisco MD Bi Specialist: Remy Francisco MD Symptoms: I48.91 - Unspecified atrial fibrillation Study Quality: Fair ECG Rhythm: Sinus Conclusions: - 1. Normal LV ejection fraction 55-60% 2. Mildly dilated left atrium 3. Mild mitral regurgitation 4. Normal RV systolic pressure 5. No gross pericardial effusion Findings Procedure Information The patient declines contrast. Left Ventricle Normal left ventricular size, thickness, and systolic function. The visually estimated ejection fraction is between 55-60%. Normal left ventricular filling pressures. Right Ventricle Normal right ventricular cavity size and systolic function. Atria The left atrium is mildly dilated. The right atrium is likely dilated. Aortic Valve Normal aortic valve structure and function. There is no aortic valve stenosis. There is no aortic valve regurgitation. Mitral Valve Normal mitral valve structure and function. There is mild mitral valve regurgitation. There is no mitral valve stenosis. Pulmonic Valve The pulmonic valve is likely normal. There is trace pulmonic valve regurgitation. Tricuspid Valve Normal tricuspid valve structure. There is mild tricuspid valve regurgitation. The right ventricular systolic pressure is normal. The right ventricular systolic pressure is 24 mmHg. Normal right atrial pressure. There is no evidence of pulmonary hypertension. Great Vessels All visible segments of the aorta are normal in size. The pulmonary artery was not well visualized. There is no dilatation of the ascending aorta measuring 3.30 cm. Venous The inferior vena cava is normal in size and collapses greater than 50% with inspiration. Pericardium/Pleural There is no evidence of pericardial effusion. Prior Study Comparison Changes noted compared to prior study dated: 03/03/2022. LV ejection fraction is marginally improved Measurements 2D Linear Measurements IVSd: 1.11 0.6-0.9/0.6-1.0 cm LVIDd: 4.09 3.9-5.3/4.2-5.9 cm LVIDd Index: 2.19 2.4-3.2/2.2-3.1 cm/m2 LVIDs: 3.04 2.0-3.6 cm LVPWd: 1.02 0.7-1.1 cm LA Diam: 4.10 2.7-3.8/3.0-4.0 cm LAIDs Index: 2.19 1.5-2.3 cm/m2 LV Mass: 179.11 67-162/88-224 g LV Mass Index: 95.78 43-95/49-115 g/m2 LVOT Diam: 2.00 3.0+(-)1.3 cm 2D Systolic Function EF 4C: 59.00 >55% EF 2C: 49.20 >55% EF BiP: 55.00 >55% Mitral Valve MV Pk E: 0.76 MV Decel Time: 180.00 E'Lateral: 10.10 E'Medial: 9.58 E/E' Med: 7.90 E/E' Lat: 7.50 PHT: 53.00 MVA PHT: 4.15 Decel [place]: 4.21 Aortic Valve AoV Pk Riley: 0.86 AoV Pk Grad: 3.00 LVOT LVOT Pk Riley: 0.82 LVOT Mn Riley: 0.56 LVOT VTI: 0.14 LVOT Pk Grad: 3.00 LVOT Mn Grad: 1.00 LVOT Diam: 2.00 LVOT Area: 3.14 Diastolic Function MV Pk E: 0.76 E'Medial: 9.58 E/E' Med: 7.90 E' Laterial: 10.10 E/E' Lat: 7.50 Right Ventricle TAPSE (mm): 15.30 TVS' Riley: 13.30 Tricuspid Valve TR Pk Riley: 2.28 TR Pk Grad: 21.00 RA Press: 3.00 RVSP: 24.00 Great Vessels Aorta Sinus of Valsalva: 3.08 2.0-3.5 cm Ao Asc: 3.30 2.1-3.4 cm Updated in Other Vendor System with Status of Final Remy Francisco MD electronically signed on 07/09/2024 4:42:51 PM with status of Final
--- OUTSIDE RECORDS SUMMARY | 2024-07-09 17:28 | XMS_ITS | Data Portability ---
Author Organization [place] - [facility], , [facility] Address [address] [place] [address] Assessment Encounter Date Assessment Date Assessment LastModified by Organization Details LastModified Time 02/05/2014 02/05/2014 Assessment: severe knee OA Patient Goals: improve her pain and function Clinical Goals:? decrease her pain, improve her arom and strength Treatment Plan: Patient to return 2 times per week for 4 weeks. Treatment to Include: therapeutic exercises and hep jprinzivalli Not available 02/06/2014 06:53:06 Plan of Treatment Reminders Order Date Submit Date Provider Last Modified By Organization Details Last Modified Time Details Appointments None record ed. Lab None record ed. Referral None record ed. Procedures None record ed. Surgeries None record ed. Imaging None record ed. Medication Orders None record ed. Patient TargetsNo targets recorded. Patient InstructionsNo instructions recorded. Reason for Referral None Reported. Results Created Date Observation Date Name Description Value Unit Range Abnormal Flag Note LastModifiedBy Organization Detail LastModifiedTime 01/30/20 15 01/30/2015 PT/IN R PT 10.4 secon ds 9.0-10 .4 Not Available [address], [address], 01/30/2015 15:29:10 01/30/20 15 01/30/2015 PT/IN R INR 1.0 0.9-1. [address] [place] [address] Value of 2.0-3 .0 for proph ylaxi s of Venou s Thomb osis, and preve ntion of Embol ism. Sugge sted Value of 2.5-3 .5 for preve ntion of Recur rent Embol ism or patie nts with Mecha nical Prost hetic Heart Valve s. Not Available [address], [address], 01/30/2015 15:29:10 01/30/20 15 01/31/2015 zinc, serum or plasm a zinc 69 mcg/d L 60-130 Not Available [facility] [address] [place], [address], 01/31/2015 06:07:08 01/30/20 15 02/04/2015 vitam in K, serum or plasm a vitamin K 519 pg/mL 80-116 0 Not Available [facility] [address] [place], [address], 02/04/2015 16:33:54 01/30/20 15 02/09/2015 vitam in D, 25-hy droxy , total , serum vitamin D, 25-hydroxy, EIA 29.1 NG/mL 20.0-9 9.9 Thera py is based on measu remen t of total 25-OH D, with level s less than 20 ng/mL indic ative of Vitam in D defic iency . Level s betwe en 20ng/ mL and 30 ng/mL sugge st insuf ficie ncy. Optim al Level s are great er than 30 ng/mL . Not Available [address], [address], 02/09/2015 15:10:34 05/13/19 16 05/14/2015 CBC WBC 7.7 K/? ? ?L 4.0-10 .0 Not Available [address], [address], 05/14/2015 09:20:36 05/13/19 16 05/14/2015 CBC RBC 4.05 M/? ? ?L 3.93-5 .22 Not Available [address], [address], 05/14/2015 09:20:36 05/13/19 16 05/14/2015 CBC HGB 12.0 g/dL 11.2-1 5.7 Not Available [address], [address], 05/14/2015 09:20:36 05/13/19 16 05/14/2015 CBC HCT 37.4 % 34.1-4 4.9 Not Available [address], [address], 05/14/2015 09:20:36 05/13/19 16 05/14/2015 CBC MCV 92.3 ? ? ?L 79.4-9 4.8 Not Available [address], [address], 05/14/2015 09:20:36 05/13/19 16 05/14/2015 CBC MCH 29.6 pg 25.6-3 2.2 Not Available [address], [address], 05/14/2015 09:20:36 05/13/19 16 05/14/2015 CBC MCHC 32.1 g/dL 32.2-3 5.5 low Not Available [address], [address], 05/14/2015 09:20:36 05/13/19 16 05/14/2015 CBC plt 175.0 K/? ? ?L 182.0- 369.0 low Not Available [address], [address], 05/14/2015 09:20:36 05/13/19 16 05/14/2015 CBC MPV 13.3 9.4-12 .3 high Not Available [address], [address], 05/14/2015 09:20:36 05/13/19 16 05/14/2015 CBC neut% 55.1 % 34.0-7 1.1 Not Available [address], [address], 05/14/2015 09:20:36 05/13/19 16 05/14/2015 CBC neut# 4.2 1.6-6. 1 Not Available [address], [address], 05/14/2015 09:20:36 05/13/19 16 05/14/2015 CBC lymph % 31.7 % 19.3-5 1.7 Not Available [address], [address], 05/14/2015 09:20:36 05/13/19 16 05/14/2015 CBC lymph # 2.4 K/? ? ?L 1.2-3. 7 Not Available [address], [address], 05/14/2015 09:20:36 05/13/19 16 05/14/2015 CBC mono% 9.6 % 4.7-12 .5 Not Available [address], [address], 05/14/2015 09:20:36 05/13/19 16 05/14/2015 CBC mono# 0.7 0.2-0. 4 high Not Available [address], [address], 05/14/2015 09:20:36 05/13/19 16 05/14/2015 CBC eo% 3.2 % 0.7-5. 8 Not Available [address], [address], 05/14/2015 09:20:36 05/13/19 16 05/14/2015 CBC eo# 0.3 0.0-0. 4 Not Available [address], [address], 05/14/2015 09:20:36 05/13/19 16 05/14/2015 CBC baso% 0.4 % 0.1-1. 2 Not Available [address], [address], 05/14/2015 09:20:36 05/13/19 16 05/14/2015 CBC baso# 0.0 0.0-0. 1 low Not Available [address], [address], 05/14/2015 09:20:36 05/13/19 16 05/14/2015 CBC RDW-CV 13.5 % 11.7-1 4.4 Not Available [address], [address], 05/14/2015 09:20:36 05/13/19 16 05/15/2015 vitam in D, 25-hy droxy , total , serum vitamin D, 25-hydroxy, EIA 71.7 NG/mL 20.0-9 9.9 Thera py is based on measu remen t of total 25-OH D, with level s less than 20 ng/mL indic ative of Vitam in D defic iency . Level s betwe en 20ng/ mL and 30 ng/mL sugge st insuf ficie ncy. Optim al Level s are great er than 30 ng/mL . Not Available [address], [address], 05/15/2015 11:24:30 05/13/19 16 05/15/2015 magne sium, RBC magnesium, RBC 5.3 mg/dL 4.0-6. 4 Not Available [facility] [address], [place], [address], 05/15/2015 12:50:57 01/31/20 15 01/29/2015 X-ray , coccy x OBSERV ATION: Sacroc occyge al spine 3 views Atraum atic pain Findin gs: Old healed fractu res of the right symphy sis are presen t. There is a large calcif ied lymph node in the right groin and this is of no clinic al signif icance . The SI joints reveal no eviden ce of acute sacroi liitis . The lower lumbar spine is normal Minera lizati on and alignm ent of the sacroc occyge al spine are well-m aintai mateo. Impres romina: No acute signif icant radiog raphic abnorm ality Code 78407 Electr onical ly signed Readin g Physic tracie: Rambo Nix [address] (Imaging) [address] [place], [address], 01/30/2015 09:31:58 Result Notes None recorded. Problems Name Problem SNOMED Code Status Onset Date Resolution Date Notes Provider Name and Address Organization Details Recorded Time Presbyopia 01499096 Active 2006 Not Available [facility] 3 03:14:36 Osteoarthriti s of knee 971900254 [facility] 5 16:21:34 Irritable bowel syndrome 92530079 [facility] 16:21:34 Knee pain Active [facility] 5 16:21:34 Bursitis of foot region 067086826 [facility] 16:21:34 Problem Notes None recorded. Procedures Surgical History None recorded. Imaging Results Imaging Date Name Status LastModified by Organiz ation Details LastModified Time 01/29/2015 X-ray, coccyx completed [address] (Imaging) [address] [place], [address], 01/30/2015 09:31:58 Procedure Notes None recorded. Medical Equipment None Reported. Allergies Allergen ID Allergen Name Allergen Category Reaction Reaction Severity Criticality Documentation Date Start Date Code Code System Note Provider Name and Address Organization Details Recorded Time 094983 Substance with sulfonami de structure and antibacte rial mechanism of action (substanc e) medicatio n rash Not available Not available 09/09/2014 53286 8003 SNOMED [facility] 5 11:27:54 098619 castor oil food,medi cation Not available Not available Not available 10/06/20142128 RxNorm [facility] 5 15:38:44 524560 mold extract environme nt Not available Not available Not available 10/06/2014 15070 8 RxNorm Vernell Meet, [place] [facility] 15:38:44 Medications Name Sig Start Date Stop Date Status Note LastModified by Organization Details LastModified Time fluticasone propionate 50 mcg/actuation nasal spray,suspens ion USE 2 SPRAYS IN EACH NOSTRIL TWICE A DAY active Not Available Not Available No t Available Vitals None Recorded Social History None recorded. Functional Status None recorded. Mental Status None recorded. Family History Nothing Reported. Medical History No medical history recorded. Gynecological HistoryNo gynecological history recorded. Obstetrics History GPAL:G 0 P 0 0 0 0 Past Encounters Encounter ID Performer Location Encounter Start Date Encounter Closed Date Diagnosis/Indication Diagnosis SNOMED-CT Code Diagnosis ICD10 Code Diagnosis Note [id number] [facility] [address] [address] 09/20/2006 15:59:00 09/21/2006 07:33:23 [id number] [facility], [address] [address] 02/05/2014 13:34:56 02/06/2014 09:44:31 [id number] [facility], [address] [address] 09/09/2014 11:16:31 09/09/2014 12:49:58 Health Concerns Section Related Observation LastModified by Organization Detai ls LastModified Time None Recorded Concern Status LastModified by Organization Details LastModified Time None Recorded Advance Directives Directive None Recorded Payers Encounter Date Sequence Insurance Name Policy Number Policy Fernandez Covered Member ID Fernandez Member ID Guarantor Name 09/20/2006 1 [place] [id number] Ghada Gabriel [id number] Ghada Gabriel 02/05/2014 1 [place] [id number] Ghada Gabriel [id number] Ghada Gabriel 09/09/2014 1 [place] [id number] Ghada Gabriel [id number] Ghada Gabriel OBGyn Episode No OBEpisode recorded.
--- OUTSIDE RECORDS SUMMARY | 2024-07-09 17:28 | XMS_ITS ---
[facility] Name [facility] Organization Unknown Encounters Encounter Type Encounter Reason Primary Diagnosis Location Date Ambulatory [facility] [place] 06/04/2024 Ambulatory [facility] [place] 06/04/2024 Ambulatory [facility] [place] 05/31/2024
== END ==
LOC: HO.CARD 14:10
PROVIDERS: PCP Internal Medicine; Visit Provider Internal Medicine Cardiovascular Disease
DX: I48.91 Unspecified atrial fibrillation (principal)
CPT/HCPCS: 93306

== ENCOUNTER → 2024-07-09 14:14 | Outpatient (BNV) | payer MEDICARE, SELFPAY | PROVIDERS: PCP Internal Medicine; Visit Provider Internal Medicine Cardiovascular Disease | DX: I34.0 Nonrheumatic mitral (valve) insufficiency (principal); I36.1 Nonrheumatic tricuspid (valve) insufficiency | CPT/HCPCS: 93306 ==

== ENCOUNTER 2024-07-25 08:16 | Outpatient (REF) | payer OTHER, SELFPAY ==
--- OUTSIDE RECORDS SUMMARY | 2024-07-26 08:33 | XMS_ITS | Data Portability ---
Author Organization [place] - [facility], , [facility] Address [address] [place] [address] Assessment Encounter Date Assessment Date Assessment LastModified [...] 10.4 secon ds 9.0-10 .4 Not Available [address], [address], 01/30/2015 15:29:10 01/30/20 15 01/30/2015 PT/IN R INR 1.0 0.9-1. [address] [place]ed Value of 2.0-3 .0 for proph ylaxi s of Venou s Thomb osis, and preve ntion of Embol ism. Sugge sted Value of 2.5-3 .5 for preve ntion of Recur rent Embol ism or patie nts with Mecha nical Prost hetic Heart Valve s. Not Available [address], [address], 01/30/2015 15:29:10 01/30/20 15 01/31/2015 zinc, serum or plasm a zinc 69 mcg/d L 60-130 Not Available [facility] [address] [place], [address], 01/31/2015 06:07:08 01/30/20 15 02/04/2015 vitam in K, serum or plasm a vitamin K 519 pg/mL 80-116 0 Not Available [facility] [address] [place], [address], 02/04/2015 16:33:54 01/30/20 15 02/09/2015 vitam in [...] er than 30 ng/mL . Not Available [address], [address], 02/09/2015 15:10:34 05/13/19 16 05/14/2015 CBC WBC 7.7 K/? ? ?L 4.0-10 .0 Not Available [address], [address], 05/14/2015 09:20:36 05/13/19 16 05/14/2015 CBC RBC 4.05 M/? ? ?L 3.93-5 .22 Not Available [address], [address], 05/14/2015 09:20:36 05/13/19 16 05/14/2015 CBC HGB 12.0 g/dL 11.2-1 5.7 Not Available [address], [address], 05/14/2015 09:20:36 05/13/19 16 05/14/2015 CBC HCT 37.4 % 34.1-4 4.9 Not Available [address], [address], 05/14/2015 09:20:36 05/13/19 16 05/14/2015 CBC MCV 92.3 ? ? ?L 79.4-9 4.8 Not Available [address], [address], 05/14/2015 09:20:36 05/13/19 16 05/14/2015 CBC MCH 29.6 pg 25.6-3 2.2 Not Available [address], [address], 05/14/2015 09:20:36 05/13/19 16 05/14/2015 CBC MCHC 32.1 g/dL 32.2-3 5.5 low Not Available [address], [address], 05/14/2015 09:20:36 05/13/19 16 05/14/2015 CBC plt 175.0 K/? ? ?L 182.0- 369.0 low Not Available [address], [address], 05/14/2015 09:20:36 05/13/19 16 05/14/2015 CBC MPV 13.3 9.4-12 .3 high Not Available [address], [address], 05/14/2015 09:20:36 05/13/19 16 05/14/2015 CBC neut% 55.1 % 34.0-7 1.1 Not Available [address], [address], 05/14/2015 09:20:36 05/13/19 16 05/14/2015 CBC neut# 4.2 1.6-6. 1 Not Available [address], [address], 05/14/2015 09:20:36 05/13/19 16 05/14/2015 CBC lymph % 31.7 % 19.3-5 1.7 Not Available [address], [address], 05/14/2015 09:20:36 05/13/19 16 05/14/2015 CBC lymph # 2.4 K/? ? ?L 1.2-3. 7 Not Available [address], [address], 05/14/2015 09:20:36 05/13/19 16 05/14/2015 CBC mono% 9.6 % 4.7-12 .5 Not Available [address], [address], 05/14/2015 09:20:36 05/13/19 16 05/14/2015 CBC mono# 0.7 0.2-0. 4 high Not Available [address], [address], 05/14/2015 09:20:36 05/13/19 16 05/14/2015 CBC eo% 3.2 % 0.7-5. 8 Not Available [address], [address], 05/14/2015 09:20:36 05/13/19 16 05/14/2015 CBC eo# 0.3 0.0-0. 4 Not Available [address], [address], 05/14/2015 09:20:36 05/13/19 16 05/14/2015 CBC baso% 0.4 % 0.1-1. 2 Not Available [address], [address], 05/14/2015 09:20:36 05/13/19 16 05/14/2015 CBC baso# 0.0 0.0-0. 1 low Not Available [address], [address], 05/14/2015 09:20:36 05/13/19 16 05/14/2015 CBC RDW-CV 13.5 % 11.7-1 4.4 Not Available [address], [address], 05/14/2015 09:20:36 05/13/19 16 05/15/2015 vitam in [...] er than 30 ng/mL . Not Available [address], [address], 05/15/2015 11:24:30 05/13/19 16 05/15/2015 magne sium, RBC magnesium, RBC 5.3 mg/dL 4.0-6. 4 Not Available [facility] [address], [place], [address], 05/15/2015 12:50:57 01/31/20 15 01/29/2015 X-ray , [...] signif icant radiog raphic abnorm ality Code 34146 Electr onical ly signed Readin g Physic tracie: Rambo Nix [address] (Imaging) [address] [place], [address], 01/30/2015 09:31:58 Result Notes None recorded. Problems Name Problem SNOMED Code Status Onset Date Resolution Date Notes Provider Name and Address Organization Details Recorded Time Presbyopia 44239223 Active 2006 Not Available [facility] 3 03:14:36 Osteoarthriti s of knee 470285272 [facility] 16:[facility] Irritable bowel syndrome 77961605 [facility] 16:21:34 Knee pain [facility] 16:21:34 Bursitis of foot region 918002063 [facility] 16:21:34 Problem Notes None recorded. Procedures Surgical History None recorded. Imaging Results Imaging Date Name Status LastModified by Organiz ation Details LastModified Time 01/29/2015 X-ray, coccyx completed [address] (Imaging) [address] [place], [address], 01/30/2015 09:31:58 Procedure Notes None recorded. Medical Equipment None Reported. Allergies Allergen ID Allergen Name Allergen Category Reaction Reaction Severity Criticality Documentation Date Start Date Code Code System Note Provider Name and Address Organization Details Recorded Time 780271 Substance with sulfonami de structure and antibacte rial mechanism of action (substanc e) medicatio n rash Not available Not available 09/09/2014 50122 8003 SNOMED [facility] 5 11:27:54 546973 castor oil food,medi cation Not available Not available Not available 10/06/20142128 [facility] 5 15:38:44 683035 mold extract environme nt Not available Not available Not available 10/06/2014 990[address] 8 RxNorm Vernell Meet, [place] [facility] 15:38:44 Medications Name Sig Start Date Stop [...] SNOMED-CT Code Diagnosis ICD10 Code Diagnosis Note [id number] Obed Almaraz, OD [facility], [address] [address] 09/20/2006 15:59:00 09/21/2006 07:33:23 [id number] Himanshu Morillo i, PT Physical Therapy, [address] [address] 02/05/2014 13:34:56 02/06/2014 09:44:31 [id number] Obed Almaraz, OD [facility], [address] [address] 09/09/2014 11:16:31 09/09/2014 12:49:58 Health Concerns Section Related Observation LastModified by Organization Detai ls LastModified Time None Recorded Concern Status LastModified by Organization Details LastModified Time None Recorded Advance Directives Directive None Recorded Payers Encounter Date Sequence Insurance Name Policy Number Policy Fernandez Covered Member ID Fernandez Member ID Guarantor Name 09/20/2006 1 [place] [id number] Ghada Gabriel [id number] Ghada Gabriel 02/05/2014 1 [place] [id number] Ghada Gabriel [id number] Ghada Gabriel 09/09/2014 1 [place] [id number] Ghada Gabriel [id number] Ghada Gabriel OBGyn Episode No OBEpisode recorded.
== END 2024-07-25 08:17 | disposition home or self-care (01) ==
LOC: HO.HOSX 08:16
PROVIDERS: Visit Provider Orthopaedic Surgery
DX: Z13.89 Encounter for screening for other disorder (principal)

== ENCOUNTER 2024-08-22 09:10 | Outpatient (REF) | payer OTHER, SELFPAY ==
--- NOTE | ~2024-08-22 | XR_ITS ---
CLINICAL HISTORY: Bilateral knee pain Bilateral standing and 2 view right and 2 view left knee Comparison: None Findings: Bones intact. No dislocations. There are changes of severe osteoarthritis bilaterally. No joint effusion. No radiopaque foreign body. IMPRESSION: 1. No acute findings. This document has been electronically signed by: Wojciech Handy MD on 08/23/2024 09:41:29
== END 2024-08-22 09:11 | disposition home or self-care (01) ==
LOC: HO.HOSX 09:10
PROVIDERS: Visit Provider Orthopaedic Surgery
DX: M25.562 Pain in left knee (principal); M25.561 Pain in right knee
CPT/HCPCS: 73562; 99202

== ENCOUNTER 2024-08-22 13:04 | Outpatient (AMB) | payer MEDICARE, SELFPAY ==
--- OUTSIDE RECORDS SUMMARY | 2024-08-22 13:05 | XMS_ITS | Data Portability ---
Author Organization [place] - [facility], , [facility] Address [address] [place] [address] Assessment Encounter Date Assessment Date Assessment LastModified by Organization Details LastModified Time 02/05/2014 02/05/2014 Assessment: severe knee OA Patient Goals: improve her pain and function Clinical Goals: decrease her pain, improve her arom and [...] 10.4 secon ds 9.0-10 .4 Not Available [address], [address], 01/30/2015 15:29:10 01/30/20 15 01/30/2015 PT/IN R INR 1.0 0.9-1. [address] [place] Value of 2.0-3 .0 for proph ylaxi s of Venou s Thomb osis, and preve ntion of Embol ism. Sugge sted Value of 2.5-3 .5 for preve ntion of Recur rent Embol ism or patie nts with Mecha nical Prost hetic Heart Valve s. Not Available [address], [address], 01/30/2015 15:29:10 01/30/20 15 01/31/2015 zinc, serum or plasm a zinc 69 mcg/d L 60-130 Not Available [facility] [address], [address], 01/31/2015 06:07:08 01/30/20 15 02/04/2015 vitam in K, serum or plasm a vitamin K 519 pg/mL 80-116 0 Not Available [facility] [address] [place], [address], 02/04/2015 16:33:54 01/30/20 15 02/09/2015 vitam in [...] er than 30 ng/mL . Not Available [address], [address], 02/09/2015 15:10:34 05/13/19 16 05/14/2015 CBC WBC 7.7 K/? ? ?L 4.0-10 .0 Not Available [address], [address], 05/14/2015 09:20:36 05/13/19 16 05/14/2015 CBC RBC 4.05 M/? ? ?L 3.93-5 .22 Not Available [address], [address], 05/14/2015 09:20:36 05/13/19 16 05/14/2015 CBC HGB 12.0 g/dL 11.2-1 5.7 Not Available [address], [address], 05/14/2015 09:20:36 05/13/19 16 05/14/2015 CBC HCT 37.4 % 34.1-4 4.9 Not Available [address], [address], 05/14/2015 09:20:36 05/13/19 16 05/14/2015 CBC MCV 92.3 ? ? ?L 79.4-9 4.8 Not Available [address], [address], 05/14/2015 09:20:36 05/13/19 16 05/14/2015 CBC MCH 29.6 pg 25.6-3 2.2 Not Available [address], [address], 05/14/2015 09:20:36 05/13/19 16 05/14/2015 CBC MCHC 32.1 g/dL 32.2-3 5.5 low Not Available [address], [address], 05/14/2015 09:20:36 05/13/19 16 05/14/2015 CBC plt 175.0 K/? ? ?L 182.0- 369.0 low Not Available [address], [address], 05/14/2015 09:20:36 05/13/19 16 05/14/2015 CBC MPV 13.3 9.4-12 .3 high Not Available [address], [address], 05/14/2015 09:20:36 05/13/19 16 05/14/2015 CBC neut% 55.1 % 34.0-7 1.1 Not Available [address], [address], 05/14/2015 09:20:36 05/13/19 16 05/14/2015 CBC neut# 4.2 1.6-6. 1 Not Available [address], [address], 05/14/2015 09:20:36 05/13/19 16 05/14/2015 CBC lymph % 31.7 % 19.3-5 1.7 Not Available [address], [address], 05/14/2015 09:20:36 05/13/19 16 05/14/2015 CBC lymph # 2.4 K/? ? ?L 1.2-3. 7 Not Available [address], [address], 05/14/2015 09:20:36 05/13/19 16 05/14/2015 CBC mono% 9.6 % 4.7-12 .5 Not Available [address], [address], 05/14/2015 09:20:36 05/13/19 16 05/14/2015 CBC mono# 0.7 0.2-0. 4 high Not Available [address], [address], 05/14/2015 09:20:36 05/13/19 16 05/14/2015 CBC eo% 3.2 % 0.7-5. 8 Not Available [address], [address], 05/14/2015 09:20:36 05/13/19 16 05/14/2015 CBC eo# 0.3 0.0-0. 4 Not Available [address], [address], 05/14/2015 09:20:36 05/13/19 16 05/14/2015 CBC baso% 0.4 % 0.1-1. 2 Not Available [address], [address], 05/14/2015 09:20:36 05/13/19 16 05/14/2015 CBC baso# 0.0 0.0-0. 1 low Not Available [address], [address], 05/14/2015 09:20:36 05/13/19 16 05/14/2015 CBC RDW-CV 13.5 % 11.7-1 4.4 Not Available [address], [address], 05/14/2015 09:20:36 05/13/19 16 05/15/2015 vitam in [...] er than 30 ng/mL . Not Available [address], [address], 05/15/2015 11:24:30 05/13/19 16 05/15/2015 magne sium, RBC magnesium, RBC 5.3 mg/dL 4.0-6. 4 Not Available [facility] [address], [place], [address], 05/15/2015 12:50:57 01/31/20 15 01/29/2015 X-ray , [...] signif icant radiog raphic abnorm ality Code 71237 Electr onical ly signed Readin g Physic tracie: Rambo Nix [email or web address] [facility] (Imaging) [address] , [place], [address], 01/30/2015 09:31:58 Result Notes None recorded. Problems Name Problem SNOMED Code Status Onset Date Resolution Date Notes Provider Name and Address Organization Details Recorded Time Presbyopia 75205118 Active 2006 Not Available [facility] 3 03:14:36 Osteoarthriti s of knee 298416778 Active Vernell Dsouza [place] [facility] 5 16:21:34 Irritable bowel syndrome 64941527 Active Vernellmehul Dsouza [place] [facility] 5 16:21:34 Knee pain Active Vernellmehul Dsouza [place] [facility] 5 16:21:34 Bursitis of foot region 964641463 Active [place] LEE Dsouza [facility] 5 16:21:34 Problem Notes None recorded. Medical Equipment None Reported. Allergies Allergen ID Allergen Name Allergen Category Reaction Reaction Severity Criticality Documentation Date Start Date Code Code System Note Provider Name and Address Organization Details Recorded Time 245563 Substance with sulfonami de structure and antibacte rial mechanism of action (substanc e) medicatio n rash Not available Not available 09/09/2014 38567 8003 SNOMED Ingrismauricio Barrios [place] [facility] 5 11:27:54 059165 castor oil food,medi cation Not available Not available Not available 10/06/20149 RxNorm Vernell Dsouza [place] [facility] 5 15:38:44 539954 mold extract environme nt Not available Not available Not available 10/06/2014 45401 8 RxNorm Vernell Dsouza [place] [facility] 5 15:38:44 Medications Name Sig Start Date Stop [...] SNOMED-CT Code Diagnosis ICD10 Code Diagnosis Note [id number] Obed Almaraz, OD [facility], [address] [address] 09/20/2006 15:59:00 09/21/2006 07:33:23 [id number] Himanshu Morillo i, PT Physical Therapy, [address] [address] 02/05/2014 13:34:56 02/06/2014 09:44:31 [id number] Obed Almaraz, OD [facility], [address] [address] 09/09/2014 11:16:31 09/09/2014 12:49:58 Health Concerns Section Related Observation LastModified by Organization Detai ls LastModified Time None Recorded Concern Status LastModified by Organization Details LastModified Time None Recorded Advance Directives Directive None Recorded Payers Encounter Date Sequence Insurance Name Policy Number Policy Fernandez Covered Member ID Fernandez Member ID Guarantor Name 09/20/2006 1 [place] [id number] Ghada Gabriel [id number] Ghada Gabriel 02/05/2014 1 [place] [id number] Ghada Gabriel [id number] Ghada Gabriel 09/09/2014 1 [place] [id number] Ghada Gabriel [id number] Ghada Gabriel OBGyn Episode No OBEpisode recorded.
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
[2024-08-22 13:11] VITALS: BMI 26.3
== END 2024-08-22 13:41 | disposition home or self-care (01) ==
LOC: HO.HOS 13:04
PROVIDERS: PCP Internal Medicine; Visit Provider Orthopaedic Surgery
DX: M25.50 Pain in unspecified joint (principal); M25.561 Pain in right knee; M25.562 Pain in left knee
CPT/HCPCS: 99203; G2211

== ENCOUNTER → 2024-08-22 13:08 | Outpatient (BNV) | payer OTHER, SELFPAY | PROVIDERS: Visit Provider Specialist | DX: M17.0 Bilateral primary osteoarthritis of knee (principal) | CPT/HCPCS: 73562 ==

== ENCOUNTER 2024-08-27 13:33 | Outpatient (REF) | payer MEDICARE, SELFPAY ==
[2024-08-27 15:47] LABS: Rheumatoid Factor < 13.0 IU/mL (<15.0)
[2024-08-27 16:01] LABS: Erythrocyte Sedimentation Rate 18 MM/HR (0-20)
[2024-08-29 15:14] LABS: Anti Nuclear Antibody Screen NEGATIVE (NEGATIVE)
== END 2024-08-27 13:34 | disposition home or self-care (01) ==
LOC: HO.LAB 13:33
PROVIDERS: PCP Internal Medicine; Visit Provider Orthopaedic Surgery
DX: R06.02 Shortness of breath (principal); M25.50 Pain in unspecified joint; I48.91 Unspecified atrial fibrillation
CPT/HCPCS: 36415; 85652; 86038; 86140; 86431; 99212

== ENCOUNTER 2024-08-27 13:33 | Outpatient (AMB) | payer MEDICARE, SELFPAY ==
[2024-08-27 13:47] VITALS: BP 120/80; PULSE 60; BMI 25.6
--- NOTE | 2024-08-27 13:47 | MHC.OFFVIS ---
Vital Signs 08/27/24 13:47 Height 5 ft 6 in Weight 158 lb 11.725 oz BMI 25.6 BP 120/80 Blood Pressure Location Lt brachial Position Sitting Pulse 60 Intake Visit Reasons: 2 m/ echo/sleep study Intake Note: 2 month follow-up after echo c/o fatigue and sob had to r/s sleep test Orthopedics Pediatric Physician Required: No Allergies Penicillins [PENICILLINS] Allergy (Unknown, Verified 08/22/24 13:11) UNKNOWN Sulfa (Sulfonamide Antibiotics) [SULFA (SULFONAMIDE ANTIBIOTICS)] Allergy (Unknown, Verified 08/22/24 13:11) UNKNOWN Medication List - Last Reconciled 08/27/24 by Remy Francisco MD No Known Home Meds HPI Comments Details: Valery comes for follow-up. Her echocardiogram shows preserved LV ejection fraction with mildly dilated left atrium and mild mitral regurgitation. Her BNP is elevated 187. She continues to have symptoms exertional shortness of breath which was increasing in frequency. She has no orthopnea, PND, leg edema. She is wondering why she has exertional shortness of breath although it multiple discussions in the past I have discussed that persistent atrial fibrillation will cause her to exertional shortness of breath related to loss of stroke volume and overall loss of cardiac output. She still does not want to start any medications. She is looking for an alternative cause for her shortness of breath. She says she is in atrial fibrillation most of time although reported on echocardiogram that she was in sinus rhythm which is surprising. Possible that she could have intermittent normal sinus rhythm although more likely that she has chronic persistent atrial fibrillation by this time. [facility] Medical History Atrial fibrillation Surgical History Hx of knee surgery Family History Mother CHF (congestive heart failure) Brother CAD (coronary artery disease) Social History Alcohol intake: current Alcohol intake frequency: a few times a month Patient Tobacco Use Status: Former Tobacco user service: No Current occupational status: retired Review of Systems Const Denies chills, Denies fatigue, Denies fever(s), Denies frequent falls, Denies weakness, Denies weight gain and Denies weight loss ENT Denies dizziness Card Denies chest pain, Denies leg edema, Denies lightheadedness, Denies palpitations, Denies dyspnea, Denies dyspnea on exertion, Denies orthopnea and Denies other (loss of consciousness) Resp Denies cough, Denies dyspnea and Denies dyspnea on exertion GI Denies hematochezia and Denies change in stool character Musc Denies abnormal gait, Denies muscle weakness, Denies numbness, Denies radiating pain into limb and Denies tingling Neuro Denies Abnormal speech present, Denies abnormal gait, Denies dizziness, Denies frequent falls, Denies numbness, Denies tingling and Denies weakness Endo Denies fatigue and Denies palpitations Physical Exam Vital Signs: Last Vital Signs Pulse 60 08/27/24 13:47 BP 120/80 08/27/24 13:47 BMI result Body Mass Index 25.6 Const General: cooperative, comfortable, no acute distress, alert and awake Nutritional Appearance: average body habitus Orientation/consciousness: patient oriented x3 Limitations: no limitations HEENT Head: Yes normocephalic and Yes atraumatic Neck Neck: Yes trachea midline, Yes supple and Yes no JVD Resp Effort & Inspection: normal respiratory effort Auscultation: clear to auscultation bilaterally Cardio Jugular venous distension: no JVD Rhythm: abnormal rhythm irregularly irregular Heart sounds: S1 normal heart sound present, S2 normal heart sound present, no click, no gallops, no murmurs and no rubs GI Auscultation: normal bowel sounds Skin General skin exam: no rashes or lesions noted Neuro General: patient oriented x3 and no focal motor deficits Speech: No Abnormal speech present Extrem General: Yes no clubbing, cyanosis or edema Psych Appearance: grossly normal Assessment & Plan Assessment & Plan (1) Short of breath on exertion: Code(s): R06.02 - Shortness of breath Plan: Shortness of breath on exertion on this elderly woman most likely related to atrial fibrillation which is persistent. Discussed again and again the etiology of shortness of breath in setting of atrial fibrillation. See below. However myocardial ischemia needs to be ruled out. Would suggest a myocardial perfusion imaging to assess for the same. Patient after discussing does not want to get any injection and with atrial fibrillation can not do a treadmill stress test and this was discussed with her. (2) Atrial fibrillation: Code(s): I48.91 - Unspecified atrial fibrillation Category: Medical Qualifiers: Atrial fibrillation type: unspecified Qualified Code(s): I48.91 - Unspecified atrial fibrillation Plan: Persistent atrial fibrillation with mild left atrial enlargement. Most likely cause for her shortness of breath given elevated BNP. We discussed the pathophysiology of congestive heart failure in patients with persistent atrial fibrillation. We discussed about rhythm management. She is not interested in on getting on medical therapy. We discussed the risk of stroke associated with atrial fibrillation development of congestive heart failure related to atrial fibrillation. She showed understanding agree. We discussed that the longer she is in atrial fibrillation aerobic of her to pursue rhythm control approach. I think she would benefit from rhythm control approach although she does not want to think about it. Will follow up in the clinic in 1 year's time, sooner p.r.n.. Thank you for allowing me to partake in his care Orders: Orders CA lexiscan stress w eugene Today R06.02 - Shortness of breath Coding Level of Care Code Est Pt Level 4 (72286) Complex EM visit Add On G2211 Diagnoses Short of breath on exertion R06.02 Atrial fibrillation I48.91 Atrial fibrillation type: unspecified
--- OUTSIDE RECORDS SUMMARY | 2024-08-27 15:12 | XMS_ITS | Data Portability ---
Author Organization [place] - [facility], , [facility] Address [address] [place] [address] Assessment Encounter Date Assessment Date Assessment LastModified [...] 10.4 secon ds 9.0-10 .4 Not Available [address], [address], 01/30/2015 15:29:10 01/30/20 15 01/30/2015 PT/IN R INR 1.0 0.9-1. 1 [place]ed Value of 2.0-3 .0 for proph ylaxi s of Venou s Thomb osis, and preve ntion of Embol ism. Sugge sted Value of 2.5-3 .5 for preve ntion of Recur rent Embol ism or patie nts with Mecha nical Prost hetic Heart Valve s. Not Available [address], [address], 01/30/2015 15:29:10 01/30/20 15 01/31/2015 zinc, serum or plasm a zinc 69 mcg/d L 60-130 Not Available [facility] [address], [address], 01/31/2015 06:07:08 01/30/20 15 02/04/2015 vitam in K, serum or plasm a vitamin K 519 pg/mL 80-116 0 Not Available [facility] [address] [place], [address], 02/04/2015 16:33:54 01/30/20 15 02/09/2015 vitam in [...] er than 30 ng/mL . Not Available [address], [address], 02/09/2015 15:10:34 05/13/19 16 05/14/2015 CBC WBC 7.7 K/? ? ?L 4.0-10 .0 Not Available [address], [address], 05/14/2015 09:20:36 05/13/19 16 05/14/2015 CBC RBC 4.05 M/? ? ?L 3.93-5 .22 Not Available [address], [address], 05/14/2015 09:20:36 05/13/19 16 05/14/2015 CBC HGB 12.0 g/dL 11.2-1 5.7 Not Available [address], [address], 05/14/2015 09:20:36 05/13/19 16 05/14/2015 CBC HCT 37.4 % 34.1-4 4.9 Not Available [address], [address], 05/14/2015 09:20:36 05/13/19 16 05/14/2015 CBC MCV 92.3 ? ? ?L 79.4-9 4.8 Not Available [address], [address], 05/14/2015 09:20:36 05/13/19 16 05/14/2015 CBC MCH 29.6 pg 25.6-3 2.2 Not Available [address], [address], 05/14/2015 09:20:36 05/13/19 16 05/14/2015 CBC MCHC 32.1 g/dL 32.2-3 5.5 low Not Available [address], [address], 05/14/2015 09:20:36 05/13/19 16 05/14/2015 CBC plt 175.0 K/? ? ?L 182.0- 369.0 low Not Available [address], [address], 05/14/2015 09:20:36 05/13/19 16 05/14/2015 CBC MPV 13.3 9.4-12 .3 high Not Available [address], [address], 05/14/2015 09:20:36 05/13/19 16 05/14/2015 CBC neut% 55.1 % 34.0-7 1.1 Not Available [address], [address], 05/14/2015 09:20:36 05/13/19 16 05/14/2015 CBC neut# 4.2 1.6-6. 1 Not Available [address], [address], 05/14/2015 09:20:36 05/13/19 16 05/14/2015 CBC lymph % 31.7 % 19.3-5 1.7 Not Available [address], [address], 05/14/2015 09:20:36 05/13/19 16 05/14/2015 CBC lymph # 2.4 K/? ? ?L 1.2-3. 7 Not Available [address], [address], 05/14/2015 09:20:36 05/13/19 16 05/14/2015 CBC mono% 9.6 % 4.7-12 .5 Not Available [address], [address], 05/14/2015 09:20:36 05/13/19 16 05/14/2015 CBC mono# 0.7 0.2-0. 4 high Not Available [address], [address], 05/14/2015 09:20:36 05/13/19 16 05/14/2015 CBC eo% 3.2 % 0.7-5. 8 Not Available [address], [address], 05/14/2015 09:20:36 05/13/19 16 05/14/2015 CBC eo# 0.3 0.0-0. 4 Not Available [address], [address], 05/14/2015 09:20:36 05/13/19 16 05/14/2015 CBC baso% 0.4 % 0.1-1. 2 Not Available [address], [address], 05/14/2015 09:20:36 05/13/19 16 05/14/2015 CBC baso# 0.0 0.0-0. 1 low Not Available [address], [address], 05/14/2015 09:20:36 05/13/19 16 05/14/2015 CBC RDW-CV 13.5 % 11.7-1 4.4 Not Available [address], [address], 05/14/2015 09:20:36 05/13/19 16 05/15/2015 vitam in [...] er than 30 ng/mL . Not Available [address], [address], 05/15/2015 11:24:30 05/13/19 16 05/15/2015 magne sium, RBC magnesium, RBC 5.3 mg/dL 4.0-6. 4 Not Available [facility] [address], [place], [address], 05/15/2015 12:50:57 01/31/20 15 01/29/2015 X-ray , [...] signif icant radiog raphic abnorm ality Code 19296 Electr onical ly signed Readin g Physic tracie: Rambo Nix [email or web address] [facility] (Imaging) [address] , [place], [address], 01/30/2015 09:31:58 Result Notes None recorded. Problems Name Problem SNOMED Code Status Onset Date Resolution Date Notes Provider Name and Address Organization Details Recorded Time Presbyopia 90922233 Active 2006 Not Available [facility] 3 03:14:36 Osteoarthriti s of knee 602468913 Active Vernell Dsouza [place] [facility] 5 16:21:34 Irritable bowel syndrome 13659472 Active Vernellmehul Dsouza [place] [facility] 5 16:21:34 Knee pain Active Vernellmehul Dsouza [place] [facility] 5 16:21:34 Bursitis of foot region 083933572 Active [place] LEE Dsouza [facility] 5 16:21:34 Problem Notes None recorded. Medical Equipment None Reported. Allergies Allergen ID Allergen Name Allergen Category Reaction Reaction Severity Criticality Documentation Date Start Date Code Code System Note Provider Name and Address Organization Details Recorded Time 557162 Substance with sulfonami de structure and antibacte rial mechanism of action (substanc e) medicatio n rash Not available Not available 09/09/2014 73614 8003 SNOMED Ingrismauricio Barrios [place] [facility] 5 11:27:54 637291 castor oil food,medi cation Not available Not available Not available 10/06/20149 RxNorm Vernell Dsouza [place] [facility] 5 15:38:44 582936 mold extract environme nt Not available Not available Not available 10/06/2014 82828 8 RxNorm Vernell Dsouza [place] [facility] 5 15:38:44 Medications Name Sig Start Date [...] SNOMED-CT Code Diagnosis ICD10 Code Diagnosis Note [id number] Obed Almaraz, OD [facility], [address] [address] 09/20/2006 15:59:00 09/21/2006 07:33:23 [id number] Himanshu Morillo i, PT Physical Therapy, [address] [address] 02/05/2014 13:34:56 02/06/2014 09:44:31 [id number] Obed Almaraz, OD [facility], [address] [address] 09/09/2014 11:16:31 09/09/2014 12:49:58 Health Concerns Section Related Observation LastModified by Organization Detai ls LastModified Time None Recorded Concern Status LastModified by Organization Details LastModified Time None Recorded Advance Directives Directive None Recorded Payers Encounter Date Sequence Insurance Name Policy Number Policy Fernandez Covered Member ID Fernandez Member ID Guarantor Name 09/20/2006 1 [place] [id number] Ghada Gabriel [id number] Ghada Gabriel 02/05/2014 1 [place] [id number] Ghada Gabriel [id number] Ghada Gabriel 09/09/2014 1 [place] [id number] Ghada Gabriel [id number] Ghada Gabriel OBGyn Episode No OBEpisode recorded.
== END 2024-08-27 14:18 | disposition home or self-care (01) ==
LOC: HO.HCS 13:34
PROVIDERS: PCP Internal Medicine; Visit Provider Internal Medicine Cardiovascular Disease
DX: R06.02 Shortness of breath (principal); I48.91 Unspecified atrial fibrillation
CPT/HCPCS: 99214; G2211

== ENCOUNTER 2024-09-25 10:49 | Outpatient (AMB) | payer MEDICARE, SELFPAY ==
--- OUTSIDE RECORDS SUMMARY | 2024-09-25 11:29 | XMS_ITS | Data Portability ---
Author Organization [place] - [facility], , [facility] Address [address] [place] [address] Assessment Encounter Date Assessment Date Assessment LastModified [...] 10.4 secon ds 9.0-10 .4 Not Available [address], [address], 01/30/2015 15:29:10 01/30/20 15 01/30/2015 PT/IN R INR 1.0 0.9-1. [address] [place] Value of 2.0-3 .0 for proph ylaxi s of Venou s Thomb osis, and preve ntion of Embol ism. Sugge sted Value of 2.5-3 .5 for preve ntion of Recur rent Embol ism or patie nts with Mecha nical Prost hetic Heart Valve s. Not Available [address], [address], 01/30/2015 15:29:10 01/30/20 15 01/31/2015 zinc, serum or plasm a zinc 69 mcg/d L 60-130 Not Available [facility] [address], [address], 01/31/2015 06:07:08 01/30/20 15 02/04/2015 vitam in K, serum or plasm a vitamin K 519 pg/mL 80-116 0 Not Available [facility] [address], [place], [address], 02/04/2015 16:33:54 01/30/20 15 02/09/2015 vitam in [...] er than 30 ng/mL . Not Available [address], [address], 02/09/2015 15:10:34 05/13/19 16 05/14/2015 CBC WBC 7.7 K/ L 4.0-10 .0 Not Available [address], [address], 05/14/2015 09:20:36 05/13/19 16 05/14/2015 CBC RBC 4.05 M/ L 3.93-5 .22 Not Available [address], [address], 05/14/2015 09:20:36 05/13/19 16 05/14/2015 CBC HGB 12.0 g/dL 11.2-1 5.7 Not Available [address], [address], 05/14/2015 09:20:36 05/13/19 16 05/14/2015 CBC HCT 37.4 % 34.1-4 4.9 Not Available [address], [address], 05/14/2015 09:20:36 05/13/19 16 05/14/2015 CBC MCV 92.3 L 79.4-9 4.8 Not Available [address], [address], 05/14/2015 09:20:36 05/13/19 16 05/14/2015 CBC MCH 29.6 pg 25.6-3 2.2 Not Available [address], [address], 05/14/2015 09:20:36 05/13/19 16 05/14/2015 CBC MCHC 32.1 g/dL 32.2-3 5.5 low Not Available [address], [address], 05/14/2015 09:20:36 05/13/19 16 05/14/2015 CBC plt 175.0 K/ L 182.0- 369.0 low Not Available [address], [address], 05/14/2015 09:20:36 05/13/19 16 05/14/2015 CBC MPV 13.3 9.4-12 .3 high Not Available [address], [address], 05/14/2015 09:20:36 05/13/19 16 05/14/2015 CBC neut% 55.1 % 34.0-7 1.1 Not Available [address], [address], 05/14/2015 09:20:36 05/13/19 16 05/14/2015 CBC neut# 4.2 1.6-6. 1 Not Available [address], [address], 05/14/2015 09:20:36 05/13/19 16 05/14/2015 CBC lymph % 31.7 % 19.3-5 1.7 Not Available [address], [address], 05/14/2015 09:20:36 05/13/19 16 05/14/2015 CBC lymph # 2.4 K/ L 1.2-3. 7 Not Available [address], [address], 05/14/2015 09:20:36 05/13/19 16 05/14/2015 CBC mono% 9.6 % 4.7-12 .5 Not Available [address], [address], 05/14/2015 09:20:36 05/13/19 16 05/14/2015 CBC mono# 0.7 0.2-0. 4 high Not Available [address], [address], 05/14/2015 09:20:36 05/13/19 16 05/14/2015 CBC eo% 3.2 % 0.7-5. 8 Not Available [address], [address], 05/14/2015 09:20:36 05/13/19 16 05/14/2015 CBC eo# 0.3 0.0-0. 4 Not Available [address], [address], 05/14/2015 09:20:36 05/13/19 16 05/14/2015 CBC baso% 0.4 % 0.1-1. 2 Not Available [address], [address], 05/14/2015 09:20:36 05/13/19 16 05/14/2015 CBC baso# 0.0 0.0-0. 1 low Not Available [address], [address], 05/14/2015 09:20:36 05/13/19 16 05/14/2015 CBC RDW-CV 13.5 % 11.7-1 4.4 Not Available [address], [address], 05/14/2015 09:20:36 05/13/19 16 05/15/2015 vitam in [...] er than 30 ng/mL . Not Available [address], [address], 05/15/2015 11:24:30 05/13/19 16 05/15/2015 magne sium, RBC magnesium, RBC 5.3 mg/dL 4.0-6. 4 Not Available [facility] [address], [place], [address], 05/15/2015 12:50:57 01/31/20 15 01/29/2015 X-ray , [...] signif icant radiog raphic abnorm ality Code 99214 Electr onical ly signed Readsolitario jaime Physic tracie: Rambo [email or web address] [facility] (Im[facility]) [address] [place], [address], 01/30/2015 09:31:58 Result Notes None recorded. Problems Name Problem SNOMED Code Status Onset Date Resolution Date Notes Provider Name and Address Organization Details Recorded Time Presbyopia 04845403 Active 2006 Not Available [facility] 3 03:14:36 Osteoarthriti s of knee 105666756 Active Vernell Dsouza [place] [facility] 5 16:21:34 Irritable bowel syndrome 85500577 Active Vernellmehul Dsouza [place] [facility] 5 16:21:34 Knee pain Active Vernellmehul Dsouza [place] [facility] 5 16:21:34 Bursitis of foot region 446548332 Active Vernellmehul Dsouza [place] [facility] 5 16:21:34 Problem Notes None recorded. Medical Equipment None Reported. Allergies Allergen ID Allergen Name Allergen Category Reaction Reaction Severity Criticality Documentation Date Start Date Code Code System Note Provider Name and Address Organization Details Recorded Time 192732 Substance with sulfonami de structure and antibacte rial mechanism of action (substanc e) medicatio n rash Not available Not available 09/09/2014 86200 8003 SNOMED Ingris Barrios MA [facility] 5 11:27:54 561849 castor oil food,medi cation Not available Not available Not available 10/06/2014 2129 RxNorm Vernell Dsouza MA [facility] 5 15:38:44 696147 mold extract environme nt Not available Not available Not available 10/06/2014 21314 8 RxNorm Vernell Dsouza [place] [facility] 5 15:38:44 Medications Name Sig Start [...] SNOMED-CT Code Diagnosis ICD10 Code Diagnosis Note [id number] Obed Almaraz, OD [facility] Care, [address] [address] 09/20/2006 15:59:00 09/21/2006 07:33:23 [id number] Himanshu Morillo i, PT Physical Therapy, [address] [address] 02/05/2014 13:34:56 02/06/2014 09:44:31 [id number] Obed Almaraz, OD [facility], [address] [address] 09/09/2014 11:16:31 09/09/2014 12:49:58 Health Concerns Section Related Observation LastModified by Organization Detai ls LastModified Time None Recorded Concern Status LastModified by Organization Details LastModified Time None Recorded Advance Directives Directive None Recorded Payers Insurance Date Sequence Insurance Name Policy Number Policy Fernandez Covered Member ID Fernandez Member ID Guarantor Name 09/15/2016 1 [place] [facility] PLAN [id number] Ghada Gabriel [id number] Ghada Gabriel OBGyn Episode No OBEpisode recorded.
--- OUTSIDE RECORDS SUMMARY | 2024-09-25 11:29 | XMS_ITS ---
Author Name [facility] Organization Unknown Encounters Encounter Type Encounter Reason Primary Diagnosis Location Date Ambulatory [facility] [place] 06/04/2024 Ambulatory [facility] [place] 06/04/2024 Ambulatory [facility] [place] 05/31/2024
[2024-09-25 11:43] VITALS: BP 94/76; PULSE 58; TEMP 36.8; O2SAT 97; BMI 25.5
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
== END 2024-09-25 12:40 | disposition home or self-care (01) ==
PROVIDERS: PCP Internal Medicine; Visit Provider Physician Assistant Medical
DX: M25.562 Pain in left knee (principal)

== ENCOUNTER → 2024-09-25 10:49 | Outpatient (BNVA) | payer MEDICARE, SELFPAY | PROVIDERS: PCP Internal Medicine; Visit Provider Physician Assistant Medical | DX: M25.562 Pain in left knee (principal); M25.362 Other instability, left knee | CPT/HCPCS: 99212 ==

== ENCOUNTER 2024-10-14 15:04 | Outpatient (REF) | payer MEDICARE, SELFPAY ==
--- NOTE | ~2024-10-14 | US_ITS ---
CLINICAL HISTORY: DIZZINESS AND GIDDINESS US Bilateral Carotid Duplex Comparison: None provided Findings: Mild plaque at the bilateral carotid bifurcations. Color doppler and spectral tracings normal. Peak systolic velocities: Right CCA: 111 cm/s. Right ICA: 98 cm/s. ICA/CCA ratio: Normal. Right ECA: 131 cm/s. Right vertebral artery flow antegrade. Left CCA: 147 cm/s. Left ICA: 92 cm/s. ICA/CCA ratio: Normal. Left ECA: 132 cm/s. Left vertebral artery flow antegrade. IMPRESSION: Normal carotid velocities, no significant stenosis (0-49% stenosis). This document has been electronically signed by: Shivani Maya MD on 10/15/2024 15:09:28
--- OUTSIDE RECORDS SUMMARY | 2024-10-14 15:45 | XMS_ITS | Encounter Summary ---
Author Organization [facility] Address [address] [place] [address] [place] [address] Phone Care Team Providers Care Mechanic'S Assistant Name Role Phone Suhail Perdomo MD Unavailable [phone] Giuliana Gtz PA-C Unavailable Shailesh Headley MD Unavailable [phone] Anupam Pedraza MD Unavailable [phone] Nela Mcqueen DO Primary Care Provider [phone] Nela Mcqueen DO Unavailable Walter Burger DO Primary Care Provider [phone] Nela Mcqueen DO Primary Care Provider [phone] Walter Burger DO Primary Care Provider Myron Alfaro DO Primary Care Provide r Encounter Details Date Type Department Care Team (Latest Contact Info) Description 05/06/2019 Transcribe Orders [facility] [address] [place] [address] [place] [address] Himanshu Menchaca MD [address] [facility], [address] [place], [place] [phone] [email or web address] Paroxysmal atrial fibrillation (Primary Dx); Shortness of breath Social History Tobacco Use Types Packs/Day Years Used Date Smoking Tobacco: Former Cigarettes 1 5 - 1994 Smokeless Tobacco: Never Alcohol Use Standard Drinks/Week Comments Not Currently 0 (1 standard drink = 0.6 oz pur e alcohol) socially Comments No Sex and Gender Information Value Date Recorded Sex Assigned at Not on file Legal Sex Female 12:56 PM EDT Gender Identity Not on file Sexual Orientation Not on file documented as of this encounter Plan of Treatment Upcoming Encounters Date Type Department Care Team (Late st Contact Info) Description 09/04/2024 Procedure Pass [facility] [address] [place] [address] 09/04/2024 Procedure Pass [facility] [address] [place] [address] 10/23/2024 3:30 PM EDT Appointment Echo Lab [address] [place] [address] Harpreet Marks MD [address] [place] [address] 12/05/2024 2:00 PM EDT Office Visit [facility] [address] [place] [address] [address]rd Floor, [address] [address] Harpreet Marks MD [address] [place] [address] 01/27/2025 6:00 PM EST Appointment [facility] [address] [place] [address] Harpreet Marks MD [address] [place] [address], [address] [address] 10/06/2025 2:30 PM EDT Appointment [facility] [address] [place] [address] Harpreet Marks MD [address] [place] [address] documented as of this encounter Visit Diagnoses Diagnosis Paroxysmal atrial fibrillation- Primary Atrial fibrillation Shortness of breath documented in this encounter Care Teams Mechanic'S Assistant Relationship Specialty Start Date End Date Nela Mcqueen DO [address] [place] [address] [email or web address] PCP - General Family Medicine 05/03/19 10/13/19 Walter Burger DO [address] [place] [address] [email or web address] PCP - General Family Medicine 10/14/19 11/10/19 Nela Mcqueen DO [address] [place] [address] [email or web address] PCP - General Family Medicine 11/11/19 05/13/20 Walter Burger DO [address] [place] [address] [email or web address] PCP - General Family Medicine 05/14/20 06/04/23 Myron Alfaro DO [address] [place] [phone] PCP - General Internal Medicine 06/05/23 [place] [address] [email or web address] Historical LMR Provider 01/12/17 04/03/21 Giuliana Gtz PA-C [address] [place] [address] [email or web address] Historical LMR Provider 01/12/17 04/03/21 Shailesh Headley MD [address] [facility], [address] [place] [address] [email or web address] Historical LMR Provider 01/12/17 04/03/21 Anupam Pedraza MD [address] [place] [address] [email or web address] Historical LMR Provider 01/12/17 04/03/21 Nela Mcqueen DO [address] [place] [phone] [email or web address] Insurance Assigned Provider 07/03/19 08/31/19 documented as of this encounter Additional Source Comments The information contained in this document represents components of the legal health record. It is not the complete legal health record.[facility]
--- OUTSIDE RECORDS SUMMARY | 2024-10-14 15:45 | XMS_ITS | Data Portability ---
Author Organization [place] - [facility], , [facility] Address [address] [place] [address] Assessment Encounter Date Assessment Date Assessment LastModified [...] 10.4 secon ds 9.0-10 .4 Not Available [address], [address], 01/30/2015 15:29:10 01/30/20 15 01/30/2015 PT/IN R INR 1.0 0.9-1. [address] [place] Value of 2.0-3 .0 for proph ylaxi s of Venou s Thomb osis, and preve ntion of Embol ism. Sugge sted Value of 2.5-3 .5 for preve ntion of Recur rent Embol ism or patie nts with Mecha nical Prost hetic Heart Valve s. Not Available [address], [address], 01/30/2015 15:29:10 01/30/20 15 01/31/2015 zinc, serum or plasm a zinc 69 mcg/d L 60-130 Not Available [facility] [address], [address], 01/31/2015 06:07:08 01/30/20 15 02/04/2015 vitam in K, serum or plasm a vitamin K 519 pg/mL 80-116 0 Not Available [facility] [address], [place], [address], 02/04/2015 16:33:54 01/30/20 15 02/09/2015 vitam in [...] er than 30 ng/mL . Not Available [address], [address], 02/09/2015 15:10:34 05/13/19 16 05/14/2015 CBC WBC 7.7 K/ L 4.0-10 .0 Not Available [address], [address], 05/14/2015 09:20:36 05/13/19 16 05/14/2015 CBC RBC 4.05 M/ L 3.93-5 .22 Not Available [address], [address], 05/14/2015 09:20:36 05/13/19 16 05/14/2015 CBC HGB 12.0 g/dL 11.2-1 5.7 Not Available [address], [address], 05/14/2015 09:20:36 05/13/19 16 05/14/2015 CBC HCT 37.4 % 34.1-4 4.9 Not Available [address], [address], 05/14/2015 09:20:36 05/13/19 16 05/14/2015 CBC MCV 92.3 L 79.4-9 4.8 Not Available [address], [address], 05/14/2015 09:20:36 05/13/19 16 05/14/2015 CBC MCH 29.6 pg 25.6-3 2.2 Not Available [address], [address], 05/14/2015 09:20:36 05/13/19 16 05/14/2015 CBC MCHC 32.1 g/dL 32.2-3 5.5 low Not Available [address], [address], 05/14/2015 09:20:36 05/13/19 16 05/14/2015 CBC plt 175.0 K/ L 182.0- 369.0 low Not Available [address], [address], 05/14/2015 09:20:36 05/13/19 16 05/14/2015 CBC MPV 13.3 9.4-12 .3 high Not Available [address], [address], 05/14/2015 09:20:36 05/13/19 16 05/14/2015 CBC neut% 55.1 % 34.0-7 1.1 Not Available [address], [address], 05/14/2015 09:20:36 05/13/19 16 05/14/2015 CBC neut# 4.2 1.6-6. 1 Not Available [address], [address], 05/14/2015 09:20:36 05/13/19 16 05/14/2015 CBC lymph % 31.7 % 19.3-5 1.7 Not Available [address], [address], 05/14/2015 09:20:36 05/13/19 16 05/14/2015 CBC lymph # 2.4 K/ L 1.2-3. 7 Not Available [address], [address], 05/14/2015 09:20:36 05/13/19 16 05/14/2015 CBC mono% 9.6 % 4.7-12 .5 Not Available [address], [address], 05/14/2015 09:20:36 05/13/19 16 05/14/2015 CBC mono# 0.7 0.2-0. 4 high Not Available [address], [address], 05/14/2015 09:20:36 05/13/19 16 05/14/2015 CBC eo% 3.2 % 0.7-5. 8 Not Available [address], [address], 05/14/2015 09:20:36 05/13/19 16 05/14/2015 CBC eo# 0.3 0.0-0. 4 Not Available [address], [address], 05/14/2015 09:20:36 05/13/19 16 05/14/2015 CBC baso% 0.4 % 0.1-1. 2 Not Available [address], [address], 05/14/2015 09:20:36 05/13/19 16 05/14/2015 CBC baso# 0.0 0.0-0. 1 low Not Available [address], [address], 05/14/2015 09:20:36 05/13/19 16 05/14/2015 CBC RDW-CV 13.5 % 11.7-1 4.4 Not Available [address], [address], 05/14/2015 09:20:36 05/13/19 16 05/15/2015 vitam in [...] er than 30 ng/mL . Not Available [address], [address], 05/15/2015 11:24:30 05/13/19 16 05/15/2015 magne sium, RBC magnesium, RBC 5.3 mg/dL 4.0-6. 4 Not Available [facility] [address], [place], [address], 05/15/2015 12:50:57 01/31/20 15 01/29/2015 X-ray , [...] signif icant radiog raphic abnorm ality Code 86860 Electr onical ly signed Readsolitario jaime Physic tracie: Rambo [email or web address] [facility] (Imaging) [address] [place], [address], 01/30/2015 09:31:58 Result Notes None recorded. Problems Name Problem SNOMED Code Status Onset Date Resolution Date Notes Provider Name and Address Organization Details Recorded Time Osteoarthriti s of knee 970575564 Active Vernellmehul Dsouza [place] [facility] 5 16:21:34 Irritable bowel syndrome 95613590 Active Vernell Dsouza [facility] 5 16:21:34 Knee pain Active Vernellmehul Dsouza [place] [facility] 5 16:21:34 Bursitis of foot region 908287764 Active [place] LEE Dsouza [facility] 5 16:21:34 Presbyopia 02900260 Active 2006 Not Available [facility] 3 03:14:36 Problem Notes None recorded. Medical Equipment None Reported. Allergies Allergen ID Allergen Name Allergen Category Reaction Reaction Severity Criticality Documentation Date Start Date Code Code System Note Provider Name and Address Organization Details Recorded Time 839913 Substance with sulfonami de structure and antibacte rial mechanism of action (substanc e) medicatio n rash Not available Not available 09/09/2014 58086 8003 SNOMED Ingris Barrios MA [facility] 5 11:27:54 307973 castor oil food,medi cation Not available Not available Not available 10/06/2014 2129 RxNorm Vernell Dsouza MA [facility] 5 15:38:44 090983 mold extract environme nt Not available Not available Not available 10/06/2014 62775 8 [facility]Norm [facility] 15:38:44 Medications Name Sig Start [...] SNOMED-CT Code Diagnosis ICD10 Code Diagnosis Note [id number] Obed Almaraz, OD [facility], [address] [address] 09/20/2006 15:59:00 09/21/2006 07:33:23 [id number] Himanshu Morillo i, PT Physical Therapy, [address] [address] 02/05/2014 13:34:56 02/06/2014 09:44:31 [id number] Obed Almaraz, OD [facility], [address] [address] 09/09/2014 11:16:31 09/09/2014 12:49:58 Health Concerns Section Related Observation LastModified by Organization Detai ls LastModified Time None Recorded Concern Status LastModified by Organization Details LastModified Time None Recorded Advance Directives Directive None Recorded Payers Insurance Date Sequence Insurance Name Policy Number Policy Fernandez Covered Member ID Fernandez Member ID Guarantor Name 09/15/2016 1 [place] [facility] PLAN [id number] Ghada Gabriel [id number] Ghada Gabriel OBGyn Episode No OBEpisode recorded.
== END 2024-10-14 15:05 | disposition home or self-care (01) ==
LOC: HO.US 15:04
PROVIDERS: PCP Internal Medicine; Visit Provider Nurse Practitioner Primary Care
DX: M54.2 Cervicalgia (principal); R42 Dizziness and giddiness
CPT/HCPCS: 93880

== ENCOUNTER → 2024-10-14 15:25 | Outpatient (BNV) | payer MEDICARE, SELFPAY | PROVIDERS: PCP Internal Medicine; Visit Provider Radiology Diagnostic Radiology | DX: I65.23 Occlusion and stenosis of bilateral carotid arteries (principal) | CPT/HCPCS: 93880 ==

== ENCOUNTER 2024-11-22 09:41 | Outpatient (AMB) | payer MEDICARE, SELFPAY ==
[2024-11-22 10:25] VITALS: BP 102/80; PULSE 82; TEMP 36.9; O2SAT 96; BMI 26.1
--- NOTE | 2024-11-22 10:25 | MHC.OFFWIV ---
Intake Vital Signs 11/22/24 10:25 Height 5 ft 6 in Weight 162 lb BMI 26.1 BP 102/80 Blood Pressure Location Rt brachial Position Sitting Pulse 82 Pulse Source Pulse Oximeter Temp 98.4 F Temp Source Oral Pulse Oximetry (%) 96 Oxygen Delivery Method Room Air Intake Visit Reasons: EP glass stuck in foot Intake Note: pt presents with right heel pain- thinks glass may be in her foot Patient Tobacco Use Status: Former Tobacco user Allergies Penicillins (PENICILLINS) Allergy (Unknown, Verified 11/22/24 10:26) UNKNOWN Sulfa (Sulfonamide Antibiotics) (SULFA (SULFONAMIDE ANTIBIOTICS)) Allergy (Unknown, Verified 11/22/24 10:26) UNKNOWN Do you need a note to return to daycare/school/sports/work: No HPI EP glass stuck in foot HPI Details This is a 69-year-old female patient who presents to the walk-in clinic today with report of possible very small piece of glass in her right heel. She states that she dropped a glass item in her driveway about 2 weeks ago, and later felt like she stepped on a very small piece. She can not see it, however when she steps on her heel a certain way, she can feel some pain. Able to walk. Has been doing some Epsom soaks salts without any relief. [facility] Medical History Atrial fibrillation Surgical History Hx of knee surgery Family History Mother CHF (congestive heart failure) Brother CAD (coronary artery disease) Social History Alcohol intake: current Alcohol intake frequency: a few times a month Patient Tobacco Use Status: Former Tobacco user service: No Current occupational status: retired Review of Systems Const All systems reviewed & are unremarkable except as noted in HPI and below Physical Exam Vital Signs: Last Vital Signs Temp 98.4 F 11/22/24 10:25 Pulse 82 11/22/24 10:25 BP 102/80 11/22/24 10:25 Pulse Ox 96 11/22/24 10:25 Oxygen Delivery Method Room Air 11/22/24 10:25 BMI result Body Mass Index 26.1 Const General: cooperative, healthy appearing, comfortable and no acute distress Resp Effort & Inspection: normal respiratory effort Skin Other: right heel with calloused skin. Mildly tender to palpation in the center of heel. No foreign body palpated. No surrounding swelling, erythema, or excessive warmth. Extrem General: Yes capillary refill normal and Yes no clubbing, cyanosis or edema Psych Appearance: grossly normal Mental Status: mental status grossly normal Speech and movement: Normal speech and movement present Assessment & Plan Assessment & Plan (1) Pain of right heel: Code(s): M79.671 - Pain in right foot Plan: Patient has had pain in a specific point in her right heel for the last 2 weeks, following possibly stepping on a piece of glass. On exam, I can not palpate or see any foreign body. There is some point tenderness at the center of her heel. She declines any x-ray today. I encouraged her to continue to do some Epsom salt soaks and callous removal with tools or creams to soften the skin and possibly locate the glass. She can return to the clinic as needed. She declines Tetanus shot. Coding Level of Care Code Est Pt Level 4 (05030) Diagnoses Pain of right heel M79.671
--- OUTSIDE RECORDS SUMMARY | 2024-11-22 10:27 | XMS_ITS | Encounter Summary ---
Author Organization [facility] Address [address] [place] [address] [place] [address] Phone Care Team Providers Care Farm Crew Leader Name Role Phone Suhail Perdomo MD Unavailable [phone] Giuliana Gtz PA-C Unavailable Shailesh Headley MD Unavailable [phone] Anupam Pedraza MD Unavailable [phone] Nela Mcqueen DO Primary Care Provider [phone] Nela Mcqueen DO Unavailable Walter Burger DO Primary Care Provider [phone] Nela Mcqueen DO Primary Care Provider [phone] Walter Burger DO Primary Care Provider Myron Alfaro DO Primary Care Provide r Encounter Details Date Type Department Care Team (Latest Contact Info) Description 05/06/2019 Transcribe Orders [facility] [address] [place] [address] [place] [address] Himanshu Menchaca MD [address] [facility], [address] [place] [address] [email or web address] Paroxysmal atrial fibrillation (Primary Dx); [...] Info) Description 09/04/2024 Procedure Pass Echo Lab [address] [place] [address] 12/05/2024 2:00 PM EDT Office Visit [facility] [address] [place] [address] 3rd Floor, [address] [place] [address] Harpreet Marks MD [address] [place] [address] 01/27/2025 6:00 PM EST Appointment [facility] [address] [place] [address] Harpreet Marks MD [address] [place] [address] 10/06/2025 2:30 PM EDT Appointment Echo Lab [address] [place] [address] Harpreet Marks MD [address] [place] [address] documented as of this encounter Visit Diagnoses Diagnosis Paroxysmal atrial fibrillation- Primary Atrial fibrillation Shortness of breath documented in this encounter Care Teams Farm Crew Leader Relationship Specialty Start Date End Date Nela Mcqueen DO [address] [place] [address] [email or web address] PCP - General Family Medicine 05/03/19 10/13/19 Walter Burger DO [address] [place] [address] [email or web address] PCP - General Family Medicine 10/14/19 11/10/19 Nela Mcqueen DO [address] [place] [address] [email or web address] PCP - General Family Medicine 11/11/19 05/13/20 Walter Burger DO [address] [place] [address] PCP - General Family Medicine 05/14/20 06/04/23 Myron Alfaro DO [address] [place] [phone] PCP - General Internal Medicine 06/05/23 [place] [address] Historical LMR Provider 01/12/17 04/03/21 Giuliana Gtz PA-C [address] [place] [address] Historical LMR Provider 01/12/17 04/03/21 Shailesh Headley MD [address] [place] [address] Historical LMR Provider 01/12/17 04/03/21 Anupam Pedraza MD [address] [place] [address] [email or web address] Historical LMR Provider 01/12/17 04/03/21 Nela Mcqueen DO [address] [place] [address] [email or web address] Insurance Assigned Provider 07/03/19 08/31/19 documented as of this encounter Additional Source Comments The information contained in this document represents components of the legal health record. It is not the complete legal health record.[facility]
--- OUTSIDE RECORDS SUMMARY | 2024-11-22 10:27 | XMS_ITS | Encounter Summary ---
Author Organization [facility] Address [address] [place] [address] Phone Care Team Providers Care Act Tutor Name Role Phone Suhail Perdomo MD Unavailable [phone] Giuliana Gtz PA-C Unavailable [phone] Shailesh Headley MD Unavailable [phone] Anupam Pedraza MD Unavailable [phone] Nela Mcqueen DO Primary Care Provider [phone] Nela Mcqueen DO Unavailable Walter Burger DO Primary Care Provider [phone] Nela Mcqueen DO Primary Care Provider [phone] Walter Burger DO Primary Care Provider [phone] Myron Alfaro DO Primary Care Provide r Encounter Details Date Type Department Care Team (Late st Contact Info) Description 05/06/2019 Ancillary Orders [facility], X-Ray - Edie [address] [place], [place] [phone] Supa Carrillo DC [address] [place] [id number] Pain Social History Tobacco Use Types Packs/Day Years Used Date Smoking Tobacco: Former Cigarettes 1 20 1 5 - 1994 Smokeless Tobacco: Never [...] Info) Description 09/04/2024 Procedure Pass Echo Lab [address] [place] [address] 12/05/2024 2:00 PM EDT Office Visit [facility] [address] [place] [address] [address]rd Floor, [address] [place] [address] Harpreet Marks MD [address] [place] [address] 01/27/2025 6:00 PM EST Appointment [facility]FT [facility] [address] [place] [address] Harpreet Marks MD [address] [place] [address] 10/06/2025 2:30 PM EDT Appointment Echo Lab [address] [place] [address] Harpreet Marks MD [address] [place] [address] Scheduled Orders Name Type Priority Associated Diagnoses Orde r Schedule XR Cervical Spine Imaging Routine Pain 1 Occurrences starting 05/06/2019 until 08/04/2019 XR Thoracic Spine Imaging Routine Pain Expected: 05/06/2019, Expires: 08/04/2019 XR Lumbar Spine Imaging Routine Pain 1 Occurrences starting 05/06/2019 until 08/04/2019 documented as of this encounter Visit Diagnoses Diagnosis Pain Generalized pain documented in this encounter Care Teams Act Tutor Relationship Specialty Start Date End Date Nela Mcqueen DO [address] [place] [address] [email or web address] PCP - General Family Medicine 05/03/19 10/13/19 Walter Burger DO [address] [place] [address] [email or web address] PCP - General Family Medicine 10/14/19 11/10/19 Nela Mcqueen DO [address] [place] [address] [email or web address] PCP - General Family Medicine 11/11/19 05/13/20 Walter Burger DO [address] [place] [address] [email or web address] PCP - General Family Medicine 05/14/20 06/04/23 Myron Alfaro DO [address] [place] [phone] PCP - General Internal Medicine 06/05/23 [place] [address] [email or web address] Historical LMR Provider 01/12/17 04/03/21 Giuliana Gtz PA-C [address] [place] [address] Historical LMR Provider 01/12/17 04/03/21 Shailesh Headley MD [address] [place] [address], [address] [place] [address] Historical LMR Provider 01/12/17 04/03/21 Anupam Pedraza MD [address] [address] [email or web address] Historical LMR Provider 01/12/17 04/03/21 Nela Mcqueen DO [address] [place] [address] [email or web address] Insurance Assigned Provider 07/03/19 08/31/19 documented as of this encounter Additional Source Comments The information contained in this document represents components of the legal health record. It is not the complete legal health record.[facility]
--- OUTSIDE RECORDS SUMMARY | 2024-11-22 10:27 | XMS_ITS | Clinical Summary ---
Author Organization [facility] Address [address] [place] [phone] Phone Care Team Providers Care System Safety Engineer Name Role Phone Myron Alfaro DO Primary Care Provide r Allergies Active Allergy Reactions Criticality Noted Date Comments [place] Oil 05/23/2018 Egg 05/23/2018 Gelatin 2024 Milk Containing Products (Dairy) 10/02/2019 Arthritis inflammation Mold Sneezing 09/04/2024 Pork/Porcine Containing Products 10/02/2019 itching Soy 2024 Sulfa (Sulfonamide Antibiotics) Unknown,Rash Medium 12/16/2014 Yeast 2024 Medications b complex vitamins capsule Take 1 capsule by mouth daily. Active pyridoxine, vitamin B6, (VITAMIN B-6) 50 MG tablet Take 1 tablet (50 mg total) by mouth daily. 90 tablet 1 11/21/2019 Active ascorbic acid, vitamin C, (VITAMIN C) 250 MG tablet Take 1 tablet (250 mg total) by mouth daily. 90 tablet 1 11/21/2019 Active zinc 50 mg Tab tablet Take 1 tablet (50 mg total) by mouth daily. 90 tablet 1 11/21/2019 Active coenzyme Q10 100 mg capsule Take 1 capsule (100 mg total) by mouth daily. 90 capsule 1 11/21/2019 Active cholecalciferol (VITAMIN D3) 2,000 unit capsule Take 1 capsule (2,000 Units total) by mouth daily. 90 capsule 1 11/21/2019 Active EPINEPHrine 0.3 mg/0.3 mL auto-injector Inject 0.3 mL (0.3 mg total) into the muscle as needed for anaphylaxis. 1 Device 1 06/08/2020 Active TURMERIC ORAL Take by mouth. Active fluticasone propionate (FLONASE) 50 mcg/actuation nasal spray USE 2 SPRAYS IN EACH NOSTRIL TWICE A DAY Active Active Problems Problem Noted Date Diagnosed Date Trigger middle finger of left hand 11/22/2019 Assessment & Plan (11/22/2019 8:16 AM EDT): Pt offered referral for injection or PT/OT for splinting and exercises but she declines at this time. Impaired fasting glucose 11/22/2019 Assessment & Plan (11/22/2019 8:15 AM EDT): Pt with mildly elevated Hgba1c of 5.9 in April. She is making efforts to address through diet. We'll continue to monitor. Primary osteoarthritis of both knees 11/21/2019 Assessment & Plan (11/22/2019 8:13 AM EDT): Pt declines PT at this time. We could consider Ortho eval and perhaps injections in the future. She wishes to defer at this time. Age-related cataract of right eye 11/21/2019 Sprain of medial collateral ligament of right kn ee 04/09/2018 Assessment & Plan (04/09/2018 1:16 PM EST): Given knee strengthening exercises. If pain does not resolve in 1 week consider bracing. ADHD (attention deficit hype ractivity disorder), combined type 04/09/2018 Assessment & Plan (11/21/2019 11:15 AM EDT): Pt not currently taking medication. She feels symptoms are manageable. Assessment & Plan (04/09/2018 1:17 PM EST): Try double strength Rhodiola. Take this in the morning to help with concentration and focus. Allergic rhinitis 02/08/2018 Atrial fibrillation 02/08/2018 Overview (10/02/2019): Reports this was diagnosed from study abroad coordinator 3-5 years ago. Not on medications. Discussed increased risk of stroke with patient today. She declined medication. I offered her to come into the office for EKG and further testing. Pt declined because she would have to wear a mask. I offered referral to study abroad coordinator however patient declined as well. She states she is having more SOB and worsening palpitations over the past few months. I again stated we need to do more work-up but she declined again as she would have to wear a mask. Assessment & Plan (12/14/2023 12:32 PM EDT): We had a detailed discussion with the patient with regards to blood thinners. In view of high burden of atrial fibrillation she will benefit from blood thinners with regards to stroke prevention. Patient at this point does not want to take blood thinners. Will request for MCT and echocardiogram to evaluate further. Assessment & Plan (11/22/2019 8:12 AM EDT): Appears to have been diagnosed several years ago. Pt reports that she has recently started following with a study abroad coordinator although she is not on anticoagulation or rate control. She states she is aware of increased risk for stroke but does not feel concerned. She is unable to recall the name of her study abroad coordinator but states she will follow up with them on this issue. Assessment & Plan (04/09/2018 1:15 PM EST): Continue magnesium as it appears to be helpful. Assessment & Plan (03/01/2018 1:05 PM EST): Continue to monitor for change. She does not need anticoagulant at this time. Dyspnea 02/08/2018 Assessment & Plan (12/14/2023 12:33 PM EDT): Will request for echocardiogram and MCT to evaluate further. Sleep apnea in adult 02/08/2018 Overview (03/01/2018): She was tested last year and did not have enough sleep apnea for a diagnosis. Assessment & Plan (11/21/2019 11:14 AM EDT): Pt does not use CPAP and she did not find it tolerable. Assessment & Plan (03/01/2018 1:07 PM EST): We will retest this in the Spring. She has gained some weight and this may have gotten worse. Pain in joint of right shoulder 02/08/2018 Assessment & Plan (03/01/2018 1:05 PM EST): Continue exercises. Assessment & Plan (02/08/2018 4:09 PM EST): Patient is given a yoga shoulder stretch and told to do lateral raise is twice daily. Weakness 02/08/2018 Assessment & Plan (03/01/2018 1:06 PM EST): She just joined a gym and will be working on her general weakness. Assessment & Plan (02/08/2018 4:09 PM EST): Patient has been given 5 exercises to strengthen various parts of the body. The hope is is by increasing her workload she will at least get something done on a regular basis and take care of her ailing health. Encounters Date Type Department Care Team Description 10/17/2024 [facility] [address] [place] [address], [address] [place] [address] Harpreet Marks MD 09/26/2024 [facility] [address] [place] [address], [address] [place] [address] Harpreet Marks MD 09/10/2024 [facility] [address] [place] [address], [address] [place] [address] Harpreet Marks MD 09/09/2024 [facility] [address], [address] [place] [address] Harpreet Marks MD 09/04/2024 3:31 PM EDT - 09/04/2024 11:59 PM EDT Hospital Encounter [facility] [address] [place] [address] Harpreet Marks MD Discharge Disposition: Home or Self Care 09/04/2024 3:29 PM EDT - 09/04/2024 3:30 PM EDT Hospital Encounter [facility], X-Ray - [address] [place] [address] Harpreet Marks MD Discharge Disposition: Home or Self Care 09/04/2024 2:30 PM EDT Office Visit [facility] [address] Floor, [address] [place] [address] Harpreet Marks MD Paroxysmal atrial fibrillation (Primary Dx); Dyspnea, unspecified type 09/04/2024 Transcribe Orders [facility] [address], [address] [place] [address] Harpreet Marks MD Shortness of breath (Primary Dx); Atrial fibrillation, unspecified type from Last 3 Months Family History Medical History Relation Comments Heart disease Brother 1 Heart disease Brother 2 Breast cancer Daughter in 2014 Heart disease Father Parkinson's disease Father Heart disease Maternal Grandfather Heart disease Maternal Grandmother Heart disease Mother Appendicitis Paternal Grandmother No Known Problems Son Relation Status Comments Brother 1 Alive Brother 2 Alive Daughter (Age 33) Father (Age 83) Maternal Grandfather Maternal Grandmother Mother (Age 69) Paternal Grandmother Son Alive Social History Tobacco Use Types Packs/Day Years Used Date Smoking Tobacco: Former Cigarettes 1 1994 Smokeless Tobacco: Never Tobacco Cessation:Counseling Given: Not Answered Alcohol Use Standard Drinks/Week Comments Not Currently 0 (1 standard drink = 0.6 oz pur e alcohol) socially Education Answer Date Recorded Are you interested in more education? Not on gauri e 07/22/2022 Are you concerned about learning? Not on file 07/22/2022 No 07/22/2022 No 07/22/2022 Digital Access Answer Date Recorded No 08/22/2022 No 08/22/2022 Reliable internet access at home? Not on file 08/22/2022 Device with a working camera? 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 Not on file Not on file Last Filed Vital Signs Vital Sign Reading Time Taken Comments Blood Pressure 140/66 12/14/2023 11:27 AM EDT Pulse 95 12/14/2023 11:27 AM EDT Temperature 36.5 C (97.7 F) 05/06/2019 8:25 AM EST Respiratory Rate - - Oxygen Saturation 97% 05/06/2019 8:25 AM EST Inhaled Oxygen Concentration - - Weight 74.4 kg (164 lb) 12/14/2023 11:27 AM EDT Height 165.1 cm (5' 5 ) 09/04/2024 2:25 PM EDT Body Mass Index 27.29 12/14/2023 11:27 AM EDT Plan of Treatment Upcoming Encounters Date Type Department Care Team (Late st Contact Info) Description 09/04/2024 Procedure [facility] [address] [place] [address] 12/05/2024 2:00 PM EDT Office Visit [facility] [address] [place] [address] [address]rd Floor, [address] [address] Harpreet Marks MD [address] [place] [address] 01/27/2025 6:00 PM EST Appointment [facility] [address] [place] [address] Harpreet Marks MD [address] [place] [address] 10/06/2025 2:30 PM EDT Appointment [facility] [address] [place] [address] Harpreet Marks MD [address] [place] [address] Health Maintenance Due Date Last Done Comments Adult Td,Tdap Booster 1953 DEPRESSION SCREENING 1965 HEPATITIS C SCREENING 1971 MAMMOGRAM 1993 COLOGUARD 1998 COLONOSCOPY 1998 COLORECTAL CANCER SCREENING 1998 FIT TEST 1998 FOBT 1998 SIGMOIDOSCOPY 1998 VIRTUAL COLONOSCOPY 1998 PNEUMOCOCCAL VACCINES (50+ y ears) (1 of 1 - PCV) 2003 ZOSTER VACCINES (1 of 2) 2003 RSV VACCINE (1 - Risk 60-74 years 1-dose series) 2013 OSTEOPOROSIS SCREENING INITI AL (ONE-TIME) 2018 COVID-19 VACCINE (1 - 2023-2 5 season) 2023 LIPID PANEL 05/06/2024 05/06/2019 SMOKING STATUS SCREENING (On ce After 26 Yrs) Completed 09/04/2024 HEPATITIS A VACCINES Aged Out No long er eligible based on patient's age to complete this topic HIB VACCINES Aged Out No longer eligi ble based on patient's age to complete this topic MENINGOCOCCAL VACCINES (ACWY) Aged Out No longer eligible based on patient's age to complete this topic MENINGOCOCCAL VACCINES (B) Aged Out N o longer eligible based on patient's age to complete this topic Medical Devices Not on file Procedures Procedure Name Priority Date/Time Associated Diagnosis Comments TSH Routine 09/04/2024 3:41 PM EDT Dyspnea, unspecified type CBC AND DIFFERENTIAL Routine 09/04/2024 3:41 PM EDT Dyspnea, unspecified type XR CHEST PA AND LATERAL 2 VIEWS Routine 09/04/2024 3:36 PM EDT Dyspnea, unspecified type LIPID PANEL Routine 05/06/2019 9:26 AM EST Paroxysmal atrial fibrillation Shortness of breath from Last 3 Months or Most Recently Relevant to Health Maintenance Results * (ABNORMAL) CBC and differential (09/04/2024 3:41 PM EDT) WBC 8.16 4.00 - 11.00 K/uL [facility] RBC 4.66 4.00 - 5.20 M/uL [facility] HGB 13.2 12.0 - 16.0 g/dL [facility] HCT 41.5 36.0 - 46.0 % [facility] PLT 243 150 - 450 K/uL [facility] MCV 89.1 80.0 - 100.0 fL [facility] MCH 28.3 27.0 - 31.0 pg [facility] MCHC 31.8(L) 32.0 - 36.0 g/dL [facility] RDW 14.6(H) 11.5 - 14.5 % [facility] MPV 13.1(H) 8.4 - 12.0 fL [facility] NRBC 0.00 0.00 /100 WBCs [facility] ABSOLUTE NRBC 0.00 0.00 K/uL [facility] DIFF METHOD Auto [facility] NEUTS 54.9 48.0 - 76.0 % [facility] LYMPHS 27.8 18.0 - 41.0 % [facility] MONOS 9.3 4.0 - 11.0 % [facility] EOS 7.2(H) 0.0 - 5.0 % [facility] BASOS 0.6 0.0 - 1.5 % [facility] Granulocytes, immature (%) 0.2 0.0 - 0.9 % [facility] ABSOLUTE NEUTS 4.47 1.92 - 7.60 K/uL [facility] ABSOLUTE LYMPHS 2.27 0.72 - 4.10 K/uL [facility] ABSOLUTE MONOS 0.76 0.16 - 1.10 K/uL [facility] ABSOLUTE EOS 0.59(H) 0.00 - 0.50 K/uL [facility] ABSOLUTE BASOS 0.05 0.00 - 0.15 K/uL [facility] Granulocytes, immature 0.02 0.00 - 0.09 K/uL [facility] Blood 09/04/2024 3:41 PM EDT 09/04/2024 3:45 PM EDT us Harpreet Marks MD LAB BLOOD ORDERABLES Final Res ult [facility] [address] [place] [address] * TSH (09/04/2024 3:41 PM EDT) TSH 1.18 0.27 - 4.20 uIU/mL [facility] Blood 09/04/2024 3:41 PM EDT 09/04/2024 3:45 PM EDT us Harpreet Marks MD LAB BLOOD ORDERABLES Final Res ult [facility] [address] [place] [address] * XR CHEST PA AND LATERAL 2 VIEWS (09/04/2024 3:36 PM EDT) MGB IMG RECOMMENDATION COMMENT Left hilar density [facility] Anatomical Region Laterality Modality Chest Computed Radiogr aphy 09/04/2024 3:55 PM EDT Impressions 09/04/2024 3:57 PM EDT Rounded density at the left hilum may be from normal vascular structures, but I RECOMMEND CT chest with contrast for better characterization. Narrative 09/04/2024 3:57 PM EDT XR CHEST PA AND LATERAL 2 VIEWS Referring clinician's provided indication for this examination in [facility]: Dyspnea on exertion COMPARISON: None. FINDINGS: Devices/Tubes/Lines: None. Lungs: There is a rounded density at the left hilum. Pleura: No pleural effusion or pneumothorax. Heart/Mediastinum: No gross cardiomegaly. Bones/Soft Tissues: Scoliosis. Procedure Note Mark Anthony Norris MD - 09/04/2024 XR CHEST PA AND LATERAL 2 VIEWS Referring clinician's provided indication for this examination in [facility]:Dyspnea on exertion COMPARISON: None. FINDINGS: Devices/Tubes/Lines: None. Lungs: There is a rounded density at the left hilum. Pleura: No pleural effusion or pneumothorax. Heart/Mediastinum: No gross cardiomegaly. Bones/Soft Tissues: Scoliosis. IMPRESSION: Rounded density at the left hilum may be from normal vascular structures,but I RECOMMEND CT chest with contrast for better characterization. us Harpreet Marks MD IMG XR CHEST Final Result * (ABNORMAL) Lipid panel (05/06/2019 9:26 AM EST) HDL 61 mg/dL [facility] Comment: Interpretation <40 mg/dL: Low HDL cholesterol (major risk factor for CHD) Greater than or equal to 60 mg/dL: High HDL cholesterol ( negative risk factor for CHD) HDL - cholesterol is affected by a number of factors, e.g. smoking, excerise, hormones, sex and age. CHOLESTEROL 172 0 - 240 mg/dL [facility] TRIGLYCERIDES 49 30 - 160 mg/dL [facility] LDL 101 50 - 129 mg/dL [facility] Comment: LDL levels in terms of risk for coronary heart disease: <100 mg/dL: Optimal 100-129 mg/dL: Near or above optimal 130-159 mg/dL: Borderline high 160-189 mg/dL: High >190 mg/dL: Very High CARDIAC RISK RATIO 2.8(L) 3.3 - 4.4 C [facility] Blood 05/06/2019 9:26 AM EST 05/06/2019 9:31 AM EST us Himanshu Menchaca MD LAB BLOOD ORDERABLES Final Res ult [address] [address] from Last 3 Months or Most Recently Relevant to Health Maintenance Insurance MEDICARE PART A & B MEDICARE REPLACEMENT MEDICARE PART A & B MEDICARE REPLACEMENT MEDICARE PART A & B MEDICARE PART A & B MEDICARE PART A & B MEDICARE REPLACEMENT MEDICARE PART A & B MEDICARE REPLACEMENT MEDICARE PART A & B [facility] MEDICARE REPLACEMENT MEDICARE PART A & B MEDICARE PART A & B MEDICARE REPLACEMENT Care Teams System Safety Engineer Relationship Specialty Start Date End Date AngelinaMyron armenta DO [address] [facility] [address] [place] [id number] PCP - General Internal Medicine 06/05/23 Additional Source Comments The information contained in this document represents components of the legal health record. It is not the complete legal health record.[facility]
== END 2024-11-22 10:52 | disposition home or self-care (01) ==
PROVIDERS: PCP Internal Medicine; Visit Provider Nurse Practitioner Family
DX: M79.671 Pain in right foot (principal)

== ENCOUNTER → 2024-11-22 09:41 | Outpatient (BNVA) | payer MEDICARE, SELFPAY | PROVIDERS: PCP Internal Medicine; Visit Provider Nurse Practitioner Family | DX: M79.671 Pain in right foot (principal) | CPT/HCPCS: 99212 ==

== ENCOUNTER 2024-12-04 07:42 | Outpatient (REF) | payer MEDICARE, SELFPAY ==
--- OUTSIDE RECORDS SUMMARY | 2024-12-04 07:44 | XMS_ITS | Clinical Summary ---
Author Organization [facility] Address [address] [place] [phone] Phone Care Team Providers Care Instrument Worker Name Role Phone Myron Alfaro DO Primary Care Provide r Allergies Active Allergy Reactions Criticality Noted Date Comments Orange Oil 05/23/2018 Egg 05/23/2018 Gelatin 2024 Milk [...] Overview (10/02/2019): Reports this was diagnosed from gaming host 3-5 years ago. Not on medications. Discussed increased risk of stroke with patient today. She declined medication. I offered her to come into the office for EKG and further testing. Pt declined because she would have to wear a mask. I offered referral to gaming host however patient declined as well. She states [...] she has recently started following with a gaming host although she is not on anticoagulation or rate control. She states she is aware of increased risk for stroke but does not feel concerned. She is unable to recall the name of her gaming host but states she will follow up with [...] Date Type Department Care Team Description 10/17/2024 [facility] [address] [place] [address], [address] [place] [address] Harpreet Marks MD 09/26/2024 [facility] [address] [place] [address], [address] [place] [address] Harpreet Marks MD 09/10/2024 [facility] [address] [place] [address], [address] [place] [address] Harpreet Marks MD 09/09/2024 [facility] [address], [address] [place] [address] Harpreet Marks MD 09/04/2024 3:31 PM EDT - 09/04/2024 11:59 PM EDT Hospital Encounter [facility] [address] [place] [address] Harpreet Marks MD Discharge Disposition: Home or Self Care 09/04/2024 3:29 PM EDT - 09/04/2024 3:30 PM EDT Hospital Encounter [facility], X-Ray - [place] [address] [place] [address] Harpreet Marks MD Discharge Disposition: Home or Self Care 09/04/2024 2:30 PM EDT Office Visit [facility] [address] Floor, [address] [place] [address] Harpreet Marks MD Paroxysmal atrial fibrillation (Primary Dx); Dyspnea, unspecified type 09/04/2024 Transcribe Orders [facility] [address], [address] [place] [address] Harpreet Marks MD Shortness of breath (Primary [...] 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 Not on [...] Info) Description 09/04/2024 Procedure Pass Echo [facility] [address] [place] [address] 12/05/2024 2:00 PM EDT Office Visit [facility] [address] [place] [address] 3rd Floor, [address] [address] Harpreet Marks MD [address] [place] [address] 01/27/2025 6:00 PM EST Appointment [facility] [address] [place] [address] Harpreet Marks MD [address] [place] [address] 10/06/2025 2:30 PM EDT Appointment Echo Lab [address] [place] [address] Harpreet Marks MD [address] [place] [address] Health Maintenance Due Date Last Done Comments [...] 2013 OSTEOPOROSIS SCREENING INITI AL (ONE-TIME) 2018 LIPID PANEL 05/06/2024 05/06/2019 INFLUENZA VACCINE (#1) 2024 COVID-19 VACCINE ( - 2023-2 5 season) 2024 SMOKING STATUS SCREENING (On ce After 26 [...] EDT) WBC 8.16 4.00 - 11.00 K/uL [facility] RBC 4.66 4.00 - 5.20 M/uL [facility] HGB 13.2 12.0 - 16.0 g/dL [facility] HCT 41.5 36.0 - 46.0 % [facility] PLT 243 150 - 450 K/uL [facility] MCV 89.1 80.0 - 100.0 fL [facility] MCH 28.3 27.0 - 31.0 pg [facility] MCHC 31.8(L) 32.0 - 36.0 g/dL [facility] RDW 14.6(H) 11.5 - 14.5 % [facility] MPV 13.1(H) 8.4 - 12.0 fL [facility] NRBC 0.00 0.00 /100 WBCs [facility] ABSOLUTE NRBC 0.00 0.00 K/uL [facility] DIFF METHOD Auto [facility] NEUTS 54.9 48.0 - 76.0 % [facility] LYMPHS 27.8 18.0 - 41.0 % [facility] MONOS 9.3 4.0 - 11.0 % [facility] EOS 7.2(H) 0.0 - 5.0 % [facility] BASOS 0.6 0.0 - 1.5 % [facility] Granulocytes, immature (%) 0.2 0.0 - 0.9 % [facility] ABSOLUTE NEUTS 4.47 1.92 - 7.60 K/uL [facility] ABSOLUTE LYMPHS 2.27 0.72 - 4.10 K/uL [facility] ABSOLUTE MONOS 0.76 0.16 - 1.10 K/uL [facility] ABSOLUTE EOS 0.59(H) 0.00 - 0.50 K/uL [facility] ABSOLUTE BASOS 0.05 0.00 - 0.15 K/uL [facility] Granulocytes, immature 0.02 0.00 - 0.09 K/uL [facility] Blood 09/04/2024 3:41 PM EDT 09/04/2024 3:45 PM EDT us Harpreet Marks MD LAB BLOOD ORDERABLES Final Res ult [facility] [address] [place] [address] * TSH (09/04/2024 3:41 PM EDT) TSH 1.18 0.27 - 4.20 uIU/mL [facility] Blood 09/04/2024 3:41 PM EDT 09/04/2024 3:45 PM EDT us Harpreet Marks MD LAB BLOOD ORDERABLES Final Res ult [facility] [address] [place] [address] * XR CHEST PA AND LATERAL 2 VIEWS (09/04/2024 3:36 PM EDT) MGB IMG RECOMMENDATION COMMENT Left hilar density [facility] Anatomical Region Laterality Modality Chest Computed Radiogr aphy 09/04/2024 3:55 PM EDT Impressions 09/04/2024 3:57 PM EDT Rounded density at the left hilum may be from normal vascular structures, but I RECOMMEND CT chest with contrast for better characterization. Narrative 09/04/2024 3:57 PM EDT XR CHEST PA AND LATERAL 2 VIEWS Referring clinician's provided indication for this examination in [facility]: Dyspnea on exertion COMPARISON: None. FINDINGS: Devices/Tubes/Lines: None. Lungs: There is a rounded density at the left hilum. Pleura: No pleural effusion or pneumothorax. Heart/Mediastinum: No gross cardiomegaly. Bones/Soft Tissues: Scoliosis. Procedure Note Mark Anthony Norris MD - 09/04/2024 XR CHEST PA AND LATERAL 2 VIEWS Referring clinician's provided indication for this examination in [facility]:Dyspnea on exertion COMPARISON: None. FINDINGS: Devices/Tubes/Lines: None. [...] (05/06/2019 9:26 AM EST) HDL 61 mg/dL [facility] Comment: Interpretation <40 mg/dL: Low HDL cholesterol (major risk factor for CHD) Greater than or equal to 60 mg/dL: High HDL cholesterol ( negative risk factor for CHD) HDL - cholesterol is affected by a number of factors, e.g. smoking, excerise, hormones, sex and age. CHOLESTEROL 172 0 - 240 mg/dL [facility] TRIGLYCERIDES 49 30 - 160 mg/dL [facility] LDL 101 50 - 129 mg/dL [facility] Comment: LDL levels in terms of risk for coronary heart disease: <100 mg/dL: Optimal 100-129 mg/dL: Near or above optimal 130-159 mg/dL: Borderline high 160-189 mg/dL: High >190 mg/dL: Very High CARDIAC RISK RATIO 2.8(L) 3.3 - 4.4 [facility] Blood 05/06/2019 9:26 AM EST 05/06/2019 9:31 AM EST us Himanshu Menchaca MD LAB BLOOD ORDERABLES Final Res ult [address] [address] from Last 3 Months or Most Recently Relevant to Health Maintenance Insurance MEDICARE PART A & B DUAL MEDICARE REPLACEMENT MEDICARE PART A & B DUAL MEDICARE REPLACEMENT MEDICARE PART A & B MEDICARE PART A & B MEDICARE PART A & B DUAL MEDICARE REPLACEMENT MEDICARE PART A & B DUAL MEDICARE REPLACEMENT MEDICARE PART A & B DUAL MEDICARE REPLACEMENT MEDICARE PART A & B MEDICARE PART A & B DUAL MEDICARE REPLACEMENT Care Teams Instrument Worker Relationship Specialty Start Date End Date AngelinaMyron DO [address] [phone] PCP - General Internal Medicine 06/05/23 Additional Source Comments The information contained in this document represents components of the legal health record. It is not the complete legal health record.[facility]
--- OUTSIDE RECORDS SUMMARY | 2024-12-04 07:44 | XMS_ITS | Encounter Summary ---
Author Organization [facility] Address [address] [place] [address] [place] [address] Phone Care Team Providers Care Printing Machine Mechanic Name Role Phone Suhail Perdomo MD Unavailable [phone] Giuliana Gtz PA-C Unavailable Shailesh Headley MD Unavailable [phone] Anupam Pedraza MD Unavailable [phone] Nela Mcqueen DO Primary Care Provider [phone] Nela Mcqueen DO Unavailable Walter Burger DO Primary Care Provider [phone] Nela Mcqueen DO Primary Care Provider [phone] Walter Burger DO Primary Care Provider Myron Alfaro DO Primary Care Provide r Encounter Details Date Type Department Care Team (Latest Contact Info) Description 05/06/2019 Transcribe Orders [facility] [address] [place] [address] [place] [address] Himanshu Menchaca MD [address] [facility] [place], [place] [phone] [email or web address] Paroxysmal atrial fibrillation (Primary Dx); [...] Info) Description 09/04/2024 Procedure Pass Echo Lab [address] [place] [address] 12/05/2024 2:00 PM EDT Office Visit [facility] [address] [place] [address] 3rd Floor, [address] [place] [address] Harpreet Marks MD [address] [place] [address] 01/27/2025 6:00 PM EST Appointment [facility] [address] [place] [address] Harpreet Marks MD [address] [place] [address] 10/06/2025 2:30 PM EDT Appointment Echo [facility] [address] [place] [address] Harpreet Marks MD [address] [place] [address] documented as of this encounter Visit Diagnoses Diagnosis Paroxysmal atrial fibrillation- Primary Atrial fibrillation Shortness of breath documented in this encounter Care Teams Printing Machine Mechanic Relationship Specialty Start Date End Date Nela Mcqueen DO [address] [place] [phone] [email or web address] PCP - General Family Medicine 05/03/19 10/13/19 Walter Burger DO [address] [place] [address] [email or web address] PCP - General Family Medicine 10/14/19 11/10/19 Nela Mcqueen DO [address] [place] [phone] [email or web address] PCP - General Family Medicine 11/11/19 05/13/20 Walter Burger DO [address] [place] [address] PCP - General Family Medicine 05/14/20 06/04/23 Myron Alfaro DO [address] [place] [phone] PCP - General Internal Medicine 06/05/23 [place] [address] Historical LMR Provider 01/12/17 04/03/21 Giuliana Gtz PA-C [address] [place] [address] Historical LMR Provider 01/12/17 04/03/21 Shailesh Headley MD [address] [place] [address] Historical LMR Provider 01/12/17 04/03/21 Anupam Pedraza MD [address] [place] [address] [email or web address] Historical LMR Provider 01/12/17 04/03/21 Nela Mcqueen DO [address] [place] [address] [email or web address] Assigned Provider 07/03/19 08/31/19 documented as of this encounter Additional Source Comments The information contained in this document represents components of the legal health record. It is not the complete legal health record.[facility]
--- OUTSIDE RECORDS SUMMARY | 2024-12-04 07:44 | XMS_ITS | Encounter Summary ---
Author Organization [facility] Address [address] [place] [address] Phone Care Team Providers Care Senior National Account Manager Name Role Phone Suhail Perdomo MD Unavailable Giuliana Gtz PA-C Unavailable [phone] Shailesh Headley MD Unavailable Anupam Pedraza MD Unavailable [phone] Nela Mcqueen DO Primary Care Provider [phone] Nela Mcqueen DO Unavailable Walter Burger DO Primary Care Provider [phone] Nela Mcqueen DO Primary Care Provider [phone] Walter Burger DO Primary Care Provider [phone] Myron Alfaro DO Primary Care Provide r Encounter Details Date Type Department Care Team (Late st Contact Info) Description 05/06/2019 Ancillary Orders [facility], X-Ray - [place] [address] [place], [place] [phone] Supa Carrillo DC [address] [place] [id number] Pain Social History Tobacco Use Types Packs/Day Years Used Date Smoking Tobacco: Former Cigarettes 1 20 1 - 1994 Smokeless Tobacco: Never Alcohol Use [...] Info) Description 09/04/2024 Procedure Pass Echo Lab [address] [place] [address] 12/05/2024 2:00 PM EDT Office Visit [facility] [address] [place] [address] 3rd Floor, [address] [place] [address] Harpreet Marks MD [address] [place] [address] 01/27/2025 6:00 PM EST Appointment [facility] [address] [place] [address] Harpreet Marks MD [address] [place] [address] [email or web address] 10/06/2025 2:30 PM EDT Appointment Echo Lab [address] [place] [address] Harpreet Marks MD [address] [place] [address] Scheduled Orders Name Type Priority Associated Diagnoses Orde r Schedule XR Cervical Spine Imaging Routine Pain 1 Occurrences starting 05/06/2019 until 08/04/2019 XR Thoracic Spine Imaging Routine Pain Expected: 05/06/2019, Expires: 08/04/2019 XR Lumbar Spine Imaging Routine Pain 1 Occurrences starting 05/06/2019 until 08/04/2019 documented as of this encounter Visit Diagnoses Diagnosis Pain Generalized pain documented in this encounter Care Teams Senior National Account Manager Relationship Specialty Start Date End Date Nela Mcqueen DO [address] [place] [phone] [email or web address] PCP - General Family Medicine 05/03/19 10/13/19 Walter Burger DO [address] [place] [address] [email or web address] PCP - General Family Medicine 10/14/19 11/10/19 Nela Mcqueen DO [address] [place] [phone] [email or web address] PCP - General Family Medicine 11/11/19 05/13/20 Walter Burger DO [address] [place] [address] [email or web address] PCP - General Family Medicine 05/14/20 06/04/23 Myron Alfaro DO [address] [place] [phone] PCP - General Internal Medicine 06/05/23 [place] [address] [email or web address] Historical LMR Provider 01/12/17 04/03/21 Giuilana Gtz PA-C [address] [place] [address] Historical LMR Provider 01/12/17 04/03/21 Shailesh Headley MD [address] [place] [address], 2[address] [place] [address] Historical LMR Provider 01/12/17 04/03/21 Anupam Pedraza MD [address] [address] [email or web address] Historical LMR Provider 01/12/17 04/03/21 Nela Mcqueen DO [address] [place] [address] [email or web address] Assigned Provider 07/03/19 08/31/19 documented as of this encounter Additional Source Comments The information contained in this document represents components of the legal health record. It is not the complete legal health record.[facility]
== END 2024-12-04 07:43 | disposition home or self-care (01) ==
LOC: HO.HOSX 07:42
PROVIDERS: Visit Provider Orthopaedic Surgery
DX: Z13.89 Encounter for screening for other disorder (principal)

== ENCOUNTER 2024-12-04 15:17 | Outpatient (AMB) | payer MEDICARE, SELFPAY ==
--- NOTE | 2024-12-04 15:23 | MHC.OFFVIS ---
Vital Signs 12/04/24 15:27 Weight 162 lb Intake Visit Reasons: Back pain Intake Note: Ghada is a 69 year old female who presents with intermittent discomfort in her back. She denies any pains radiating down either lower extremity. The patient states that she has had ?scoliosis? since she was a trialed. She has not had surgery on her back. She states that at this point her back pain is tolerable to her. She was thinking about purchasing a back brace. Allergies Penicillins (PENICILLINS) Allergy (Unknown, Verified 12/04/24 15:27) UNKNOWN Sulfa (Sulfonamide Antibiotics) (SULFA (SULFONAMIDE ANTIBIOTICS)) Allergy (Unknown, Verified 12/04/24 15:27) UNKNOWN Medication List - Last Reconciled 12/04/24 by Jairon Kuhn MD No Known Home Meds [facility] Medical History Atrial fibrillation Surgical History Hx of knee surgery Family History Mother CHF (congestive heart failure) Brother CAD (coronary artery disease) Social History Alcohol intake: current Alcohol intake frequency: a few times a month Patient Tobacco Use Status: Former Tobacco user service: No Current occupational status: retired Physical Exam Back/Spine/Pelvis Other: Back examination shows mild midline tenderness, mild discomfort with range of motion, negative straight leg raise test bilaterally at 70 degrees Assessment & Plan Assessment & Plan (1) Back pain: Code(s): M54.9 - Dorsalgia, unspecified Category: Medical Plan Ms. Gabriel presents with intermittent low back pain due to scoliosis and degenerative disc disease. I had a lengthy discussion with the patient regarding the treatment options. At this point her back pain is tolerable to her. We will hold off on getting an MRI. She will follow up with me on an as-needed basis should her symptoms worsen in any way. Feel free to call me at any time should questions regarding her orthopedic management arise. I spent 21 minutes in reviewing the patient's records and imaging studies, seeing the patient and documenting in the medical record. Coding Level of Care Code Est Pt Level 3 (95801) Complex EM visit Add On G2211 Diagnoses Back pain M54.9
--- OUTSIDE RECORDS SUMMARY | 2024-12-04 18:17 | XMS_ITS | Clinical Summary ---
Author Organization [facility] Address [address] [place] [phone] Phone Care Team Providers Care Roll Shop Supervisor Name Role Phone Myron Alfaro DO Primary Care Provide r Allergies Active Allergy Reactions Criticality Noted Date Comments [place] Oil 05/23/2018 Egg 05/23/2018 Gelatin 2024 Milk [...] Overview (10/02/2019): Reports this was diagnosed from director plans 3-5 years ago. Not on medications. Discussed increased risk of stroke with patient today. She declined medication. I offered her to come into the office for EKG and further testing. Pt declined because she would have to wear a mask. I offered referral to director plans however patient declined as well. She states [...] she has recently started following with a director plans although she is not on anticoagulation or rate control. She states she is aware of increased risk for stroke but does not feel concerned. She is unable to recall the name of her director plans but states she will follow up with [...] Date Type Department Care Team Description 10/17/2024 [facility] [address] [place] [address], [address] [place] [address] Harpreet Marks MD 09/26/2024 [facility] [address] [place] [address], [address] [place] [address] Harpreet Marks MD 09/10/2024 [facility] [address] [place] [address], [address] [place] [address] Harpreet Marks MD 09/09/2024 [facility] [address] Floor, [address] [place] [address] Harpreet Marks MD 09/04/2024 3:31 PM EDT - 09/04/2024 11:59 PM EDT Hospital Encounter [facility] [address] [place] [address] Harpreet Marks MD Discharge Disposition: Home or Self Care 09/04/2024 3:29 PM EDT - 09/04/2024 3:30 PM EDT Hospital Encounter [facility], X-Ray - [address] [place] [address] Harpreet Marks MD Discharge Disposition: Home or Self Care 09/04/2024 2:30 PM EDT Office Visit [facility] [address] Floor, [address] [place] [address] Harpreet Marks MD Paroxysmal atrial fibrillation (Primary Dx); Dyspnea, unspecified type 09/04/2024 Transcribe Orders [facility] [address] Floor, [address] [place] [address] Harpreet Marks MD Shortness of breath (Primary [...] 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 Not on [...] Info) Description 09/04/2024 Procedure Pass [facility] [address] [place] [address] 12/05/2024 2:00 PM EDT Office Visit [facility] [address] [place] [address] [address]rd Floor, [address] [address] Harpreet Marks MD [address] [place] [address] [email or web address] 01/27/2025 6:00 PM EST Appointment [facility] [address] [place] [address] Harpreet Marks MD [address] [place] [address] [email or web address] 10/06/2025 2:30 PM EDT Appointment [facility] [address] [place] [address] Harpreet Marks MD [address] [place] [address] Health Maintenance Due Date Last Done Comments [...] EDT) WBC 8.16 4.00 - 11.00 K/uL [facility] RBC 4.66 4.00 - 5.20 M/uL [facility] HGB 13.2 12.0 - 16.0 g/dL [facility] HCT 41.5 36.0 - 46.0 % [facility] PLT 243 150 - 450 K/uL [facility] MCV 89.1 80.0 - 100.0 fL [facility] MCH 28.3 27.0 - 31.0 pg [facility] MCHC 31.8(L) 32.0 - 36.0 g/dL [facility] RDW 14.6(H) 11.5 - 14.5 % [facility] MPV 13.1(H) 8.4 - 12.0 fL [facility] NRBC 0.00 0.00 /100 WBCs [facility] ABSOLUTE NRBC 0.00 0.00 K/uL [facility] DIFF [employer] [facility] NEUTS 54.9 48.0 - 76.0 % [facility] LYMPHS 27.8 18.0 - 41.0 % [facility] MONOS 9.3 4.0 - 11.0 % [facility] EOS 7.2(H) 0.0 - 5.0 % [facility] BASOS 0.6 0.0 - 1.5 % [facility] Granulocytes, immature (%) 0.2 0.0 - 0.9 % [facility] ABSOLUTE NEUTS 4.47 1.92 - 7.60 K/uL [facility] ABSOLUTE LYMPHS 2.27 0.72 - 4.10 K/uL [facility] ABSOLUTE MONOS 0.76 0.16 - 1.10 K/uL [facility] ABSOLUTE EOS 0.59(H) 0.00 - 0.50 K/uL [facility] ABSOLUTE BASOS 0.05 0.00 - 0.15 K/uL [facility] Granulocytes, immature 0.02 0.00 - 0.09 K/uL [facility] Blood 09/04/2024 3:41 PM EDT 09/04/2024 3:45 PM EDT us Harpreet Marks MD LAB BLOOD ORDERABLES Final Res ult [facility] [address] [place] [address] * TSH (09/04/2024 3:41 PM EDT) TSH 1.18 0.27 - 4.20 uIU/mL [facility] Blood 09/04/2024 3:41 PM EDT 09/04/2024 3:45 PM EDT us Harpreet Marks MD LAB BLOOD ORDERABLES Final Res ult [facility] [address] [place] [address] * XR CHEST PA AND LATERAL 2 VIEWS (09/04/2024 3:36 PM EDT) MGB IMG RECOMMENDATION COMMENT Left hilar density [facility] Anatomical Region Laterality Modality Chest Computed Radiogr aphy 09/04/2024 3:55 PM EDT Impressions 09/04/2024 3:57 PM EDT Rounded density at the left hilum may be from normal vascular structures, but I RECOMMEND CT chest with contrast for better characterization. Narrative 09/04/2024 3:57 PM EDT XR CHEST PA AND LATERAL 2 VIEWS Referring clinician's provided indication for this examination in [facility]: Dyspnea on exertion COMPARISON: None. FINDINGS: Devices/Tubes/Lines: None. Lungs: There is a rounded density at the left hilum. Pleura: No pleural effusion or pneumothorax. Heart/Mediastinum: No gross cardiomegaly. Bones/Soft Tissues: Scoliosis. Procedure Note Mark Anthony Norris MD - 09/04/2024 XR CHEST PA AND LATERAL 2 VIEWS Referring clinician's provided indication for this examination in [facility]:Dyspnea on exertion COMPARISON: None. FINDINGS: Devices/Tubes/Lines: None. [...] (05/06/2019 9:26 AM EST) HDL 61 mg/dL [facility] Comment: Interpretation <40 mg/dL: Low HDL cholesterol (major risk factor for CHD) Greater than or equal to 60 mg/dL: High HDL cholesterol ( negative risk factor for CHD) HDL - cholesterol is affected by a number of factors, e.g. smoking, excerise, hormones, sex and age. CHOLESTEROL 172 0 - 240 mg/dL [facility] TRIGLYCERIDES 49 30 - 160 mg/dL [facility] LDL 101 50 - 129 mg/dL [facility] Comment: LDL levels in terms of risk for coronary heart disease: <100 mg/dL: Optimal 100-129 mg/dL: Near or above optimal 130-159 mg/dL: Borderline high 160-189 mg/dL: High >190 mg/dL: Very High CARDIAC RISK RATIO 2.8(L) 3.3 - 4.4 C [facility] Blood 05/06/2019 9:26 AM EST 05/06/2019 9:31 AM EST us Himanshu Menchaca MD LAB BLOOD ORDERABLES Final Res ult [address] [address] from Last 3 Months or Most Recently [...] & B DUAL MEDICARE REPLACEMENT Care Teams Roll Shop Supervisor Relationship Specialty Start Date End Date AngelinaMyron DO [address] [phone] PCP - General Internal Medicine 06/05/23 Additional Source Comments The information contained in this document represents components of the legal health record. It is not the complete legal health record.[facility]
--- OUTSIDE RECORDS SUMMARY | 2024-12-04 18:17 | XMS_ITS | Encounter Summary ---
Author Organization [facility] Address [address] [place] [address] [place] [phone] Phone Care Team Providers Care Outside Sales Executive Name Role Phone Suhail Perdomo MD Unavailable [phone] Giuliana Gtz PA-C Unavailable Shailesh Headley MD Unavailable Anupam Pedraza MD Unavailable [phone] Nela Mcqueen DO Primary Care Provider [phone] Nela Mcqueen DO Unavailable Walter Burger DO Primary Care Provider [phone] Nela Mcqueen DO Primary Care Provider [phone] Walter Burger DO Primary Care Provider Myron Alfaro DO Primary Care Provide r Encounter Details Date Type Department Care Team (Latest Contact Info) Description 05/06/2019 Transcribe Orders [facility] [address] [place] [address] [place] [address] Himanshu Menchaca MD [address] [facility] [address] [place], [place] [id number] [email or web address] Paroxysmal atrial fibrillation (Primary Dx); [...] Info) Description 09/04/2024 Procedure Pass Echo Lab [address] [place] [address] 12/05/2024 2:00 PM EDT Office Visit [facility] [address] [place] [address] 3rd Floor, [address] [place] [address] Harpreet Marks MD [address] [place] [address] 01/27/2025 6:00 PM EST Appointment [facility] [address] [place] [address] Harpreet Marks MD [address] [place] [address] 10/06/2025 2:30 PM EDT Appointment [facility] [address] [place] [address] Harpreet Marks MD [address] [place] [phone] documented as of this encounter Visit Diagnoses Diagnosis Paroxysmal atrial fibrillation- Primary Atrial fibrillation Shortness of breath documented in this encounter Care Teams Outside Sales Executive Relationship Specialty Start Date End Date Nela Mcqueen DO [address] [place] [address] [email or web address] PCP - General Family Medicine 05/03/19 10/13/19 Walter Burger DO [address] [place] [address] [email or web address] PCP - General Family Medicine 10/14/19 11/10/19 Nela Mcqueen DO [address] [place] [address] [email or web address] PCP - General Family Medicine 11/11/19 05/13/20 Walter Burger DO [address] [place] [address] PCP - General Family Medicine 05/14/20 06/04/23 Myron Alfaro DO [address] [place] [phone] PCP - General Internal Medicine 06/05/23 [place] [address] Historical LMR Provider 01/12/17 04/03/21 Giuliana Gtz PA-C [address] [place] [address] Historical LMR Provider 01/12/17 04/03/21 Shailesh Headley MD [address] [place] [address] Historical LMR Provider 01/12/17 04/03/21 Anupam Pedraza MD [address] [place] [phone] [email or web address] Historical LMR Provider 01/12/17 04/03/21 Nela Mcqueen DO [address] [place] [address] [email or web address] Insurance Assigned Provider 07/03/19 08/31/19 documented as of this encounter Additional Source Comments The information contained in this document represents components of the legal health record. It is not the complete legal health record.[facility]
--- OUTSIDE RECORDS SUMMARY | 2024-12-04 18:17 | XMS_ITS | Encounter Summary ---
Author Organization [facility] Address [address] [place] [address] Phone Care Team Providers Care Substance Abuse Nurse Name Role Phone Suhail Perdomo MD Unavailable [phone] Giuliana Gtz PA-C Unavailable [phone] Shailesh Headley MD Unavailable [phone] Anupam Pedraza MD Unavailable [phone] Nela Mcqueen DO Primary Care Provider [phone] Nela Mcqueen DO Unavailable Walter Burger DO Primary Care Provider [phone] Nela Mcqueen DO Primary Care Provider [phone] Walter Burger DO Primary Care Provider [phone] Myron Alfaro DO Primary Care Provide r Encounter Details Date Type Department Care Team (Late st Contact Info) Description 05/06/2019 Ancillary Orders [facility], X-Ray - [place] [place], [place] [phone] Supa Carrillo [place] [address] [place] [phone] Pain Social History Tobacco Use Types Packs/Day [...] Info) Description 09/04/2024 Procedure Pass Echo Lab [address] [place] [address] 12/05/2024 2:00 PM EDT Office Visit [facility] [address] [place] [address] 3rd Floor, [address] [place] [address] Harpreet Marks MD [address] [place] [address] 01/27/2025 6:00 PM EST Appointment [facility] [address] [place] [address] Harpreet Marks MD [address] [place] [phone] 10/06/2025 2:30 PM EDT Appointment Echo [facility] [address] [place] [address] Harpreet Marks MD [address] [place] [phone] Scheduled Orders Name Type Priority Associated Diagnoses Orde r Schedule XR Cervical Spine Imaging Routine Pain 1 Occurrences starting 05/06/2019 until 08/04/2019 XR Thoracic Spine Imaging Routine Pain Expected: 05/06/2019, Expires: 08/04/2019 XR Lumbar Spine Imaging Routine Pain 1 Occurrences starting 05/06/2019 until 08/04/2019 documented as of this encounter Visit Diagnoses Diagnosis Pain Generalized pain documented in this encounter Care Teams Substance Abuse Nurse Relationship Specialty Start Date End Date Nela Mcqueen DO [address] [place] [address] [email or web address] PCP - General Family Medicine 05/03/19 10/13/19 Walter Burger DO [address] [place] [address] [email or web address] PCP - General Family Medicine 10/14/19 11/10/19 Nela Mcqueen DO [address] [place] [phone] [email or web address] PCP - General Family Medicine 11/11/19 05/13/20 Walter Burger DO [address] [place] [address] [email or web address] PCP - General Family Medicine 05/14/20 06/04/23 Myron Alfaro DO [address] [place] [phone] PCP - General Internal Medicine 06/05/23 [place] [address] [email or web address] Historical LMR Provider 01/12/17 04/03/21 Giuliana Gtz PA-C [address] [place] [address] Historical LMR Provider 01/12/17 04/03/21 Shailesh Headley MD [address] [place] [address], 2nd [place] [address] Historical LMR Provider 01/12/17 04/03/21 Anupam Pedraza MD [address] [address] [email or web address] Historical LMR Provider 01/12/17 04/03/21 Nela Mcqueen DO [address] [place] [phone] [email or web address] Insurance Assigned Provider 07/03/19 08/31/19 documented as of this encounter Additional Source Comments The information contained in this document represents components of the legal health record. It is not the complete legal health record.[facility]
== END 2024-12-04 15:56 | disposition home or self-care (01) ==
LOC: HO.HOS 15:18
PROVIDERS: PCP Internal Medicine; Visit Provider Orthopaedic Surgery
DX: M54.9 Dorsalgia, unspecified (principal)
CPT/HCPCS: 99213; G2211